=== PATIENT | male | born 1950 | race African-American/Black ===

== ENCOUNTER → 2018-04-24 15:33 | Outpatient (CLI) | payer MEDICARE, SELFPAY ==
--- NOTE | 2018-04-24 15:43 | XR_ITS ---
XR chest 2V HISTORY: COPD exacerbation, cardiac dysrhythmia ITS.REASON: COPD ORDERING PHYSICIAN: Adriana Carey MD PATIENT AGE: 68 years COMPARISON: 10/10/2017 FINDINGS: There is cardiomegaly without failure. The ruy are prominent to be related to prominent pulmonary arteries. Pulmonary arterial hypertension is considered. There is COPD. Chronic increased density is present in the right lung base medially. No definite lobar consolidation or collapse. No acute bony findings. IMPRESSION: Mild cardiomegaly without failure with suspected pulmonary hypertension and COPD
== END ==
PROVIDERS: PCP Family Medicine; Visit Provider Family Medicine
DX: I49.9 Cardiac arrhythmia, unspecified (principal); J44.1 Chronic obstructive pulmonary disease with (acute) exacerbation
CPT/HCPCS: 71046; 93005

== ENCOUNTER → 2018-05-10 13:21 | Outpatient (CLI) | payer MEDICARE, SELFPAY | PROVIDERS: PCP Family Medicine; Visit Provider Family Medicine | DX: R06.02 Shortness of breath (principal) | CPT/HCPCS: 93306 ==

== ENCOUNTER → 2018-05-24 10:39 | Outpatient (CLI) | payer MEDICARE, SELFPAY | PROVIDERS: PCP Family Medicine; Visit Provider Family Medicine | DX: J44.9 Chronic obstructive pulmonary disease, unspecified (principal) | CPT/HCPCS: 94060; 94640; 94727; 94729 ==

== ENCOUNTER 2018-06-06 14:23 | Outpatient (RCR) | payer MEDICARE, SELFPAY | END 2018-08-16 08:39 | disposition home or self-care (01) | LOC: PT 14:23 | PROVIDERS: Visit Provider Family Medicine | DX: J44.9 Chronic obstructive pulmonary disease, unspecified (principal) | CPT/HCPCS: G0424 ==

== ENCOUNTER → 2018-06-27 13:03 | Outpatient (POV) | payer MEDICARE, SELFPAY | PROVIDERS: Visit Provider Internal Medicine | DX: Z00.00 Encounter for general adult medical examination without abnormal findings (principal) ==

== ENCOUNTER → 2018-08-07 12:48 | Outpatient (CLI) | payer MEDICARE, SELFPAY ==
--- NOTE | 2018-08-07 12:52 | CT_ITS ---
CT chest wo con HISTORY: Dyspnea, COPD, increasing shortness of air ITS.REASON: DYSPNEA,PULMONARY NODULES ORDERING PHYSICIAN: Saurabh Vallejo MD PATIENT AGE: 68 years COMPARISON: None Technique: Axial images obtained following the administration of 75 mL of Optiray 350 . Sagittal, and coronal reformatted images are also generated and reviewed. All CT scans at the facility use one or more dose reduction, viz: automated exposure control, ma/kV adjustment per patient size (including targeted exams where dose is matched to indication, i.e. head), or iterative reconstruction technique. FINDINGS: There is mild prominence of the ascending aorta measuring up to centimeters. There are coronary artery calcifications with normal heart size. No mediastinal or hilar mass. Scattered small mediastinal lymph nodes are present which are stable. There are centrilobular emphysematous changes. A 7 mm right upper lobe nodule which is unchanged the margins are somewhat irregular however, this does appear stable compared to 08/09/2013. Additional 5 mm nodule in the right upper lobe also unchanged. There are scattered calcified granulomas. There is hyperinflation with attenuation of the peripheral pulmonary vessels consistent with COPD. There is some mild bronchiectasis in the lower lobes. No lobar consolidation or collapse. No effusions or infiltrates. No acute bony findings. Upper abdominal images demonstrates multiple hepatic hypodensities consistent with cysts. Largest lesion is in the right hepatic lobe posteriorly at 2 cm previously measuring 1.5 cm. IMPRESSION: 1. Overall stable CT appearance of the chest. 2. Centrilobular emphysema. 3. Stable right upper lobe nodules
== END ==
PROVIDERS: PCP Family Medicine; Visit Provider Internal Medicine
DX: R91.8 Other nonspecific abnormal finding of lung field (principal); R06.00 Dyspnea, unspecified
CPT/HCPCS: 71250

== ENCOUNTER → 2018-08-29 09:58 | Outpatient (POV) | payer MEDICARE, SELFPAY | PROVIDERS: Visit Provider Internal Medicine | DX: Z00.00 Encounter for general adult medical examination without abnormal findings (principal) ==

== ENCOUNTER → 2018-12-12 12:48 | Outpatient (POV) | payer MEDICARE, SELFPAY | PROVIDERS: Visit Provider Internal Medicine | DX: Z00.00 Encounter for general adult medical examination without abnormal findings (principal) ==

== ENCOUNTER → 2019-01-08 13:29 | Outpatient (CLI) | payer MEDICARE, SELFPAY ==
--- NOTE | 2019-01-08 13:41 | ECG_ITS ---
APPROVED REPORT Exam: Resting ECG HR:78 bpm ECG Measurements Heart Rate 78 AXES AR 140 P 78 QRSd 76 QRS 46 QT 372 T 62 QTc 424 <Conclusion> Normal sinus rhythm Possible Left atrial enlargement Left ventricular hypertrophy Abnormal ECG Electronically signed by : Ildefonso Ham, 01/08/2019 16:27:22
== END ==
PROVIDERS: PCP Family Medicine; Visit Provider Family Medicine
DX: I49.9 Cardiac arrhythmia, unspecified (principal)
CPT/HCPCS: 93005

== ENCOUNTER → 2019-01-09 14:29 | Outpatient (CLI) | payer MEDICARE, SELFPAY | PROVIDERS: PCP Family Medicine; Visit Provider Family Medicine | DX: I49.9 Cardiac arrhythmia, unspecified (principal) | CPT/HCPCS: 93225; 93226 ==

== ENCOUNTER → 2020-04-16 11:36 | Outpatient (CLI) | payer MEDICARE, SELFPAY ==
--- NOTE | 2020-04-16 11:42 | XR_ITS ---
PROCEDURE: XR CERVICAL SPINE 5V CLINICAL INDICATION: NECK PAIN ON RT SIDE COMPARISON: No exams were available for comparison FINDINGS: No fracture or dislocation. No lytic or blastic change. There is normal mineralization. Multilevel cervical spondylosis. There is kyphosis of the lower cervical spine with 3 mm anterolisthesis of C4 on C5. Multilevel degenerative disc disease is present at C3-C4 C5-C6 and C6-C7. Foraminal narrowing is present on the right at C3-C4 C4-C5 and on the left at C4-C5 and C5-C6 and C6-C7. Facet arthritic changes with hypertrophy is present from C3-C7. Other findings:None. IMPRESSION: Multilevel cervical spondylosis with degenerative disc disease and facet arthritic change with foraminal narrowing as described above. Dictated by: Harpreet Conway MD 04/16/2020 12:53 Harpreet Conway MD in [place] 04/16/2020 12:53
== END ==
PROVIDERS: PCP Family Medicine; Visit Provider Family Medicine
DX: M54.2 Cervicalgia (principal)
CPT/HCPCS: 72050

== ENCOUNTER 2020-04-29 15:00 | Outpatient (RCR) | payer MEDICARE, SELFPAY ==
--- NOTE | 2020-04-24 16:13 | HMH.PTOPEV ---
PT Outpatient Evaluation Rehab PT Outpatient Evaluation Start: 04/24/20 15:15 Freq: Status: Active Protocol: Document 04/24/20 15:15 VICENTA (Rec: 04/24/20 16:13 VICENTA [id number]) Electronically Signed By Joseluis Jerez, PT 04/24/20 15:15 Outpatient Therapy Subjective History Subjective History Pt reports acute R sided neck pain since helping lifting handicap son ~ 7-10 days ago. Pt reports R sh blade area pain, as well as R sided neck pain. Pt reports some pain relief w/TENS unti and heat, no radicular s/s down R UE. Chief Complaint Pain,Stiff Symptom Type Ache,Dull Symptoms Relieved By Rest/Positioning,Heat Symptoms Aggravated By Physical Activity,Lifting Prior Functional Limitations None Current Functional Limitations Reaching,Lifting,Housework Symptom Description Constant but Variable Level of pain today (0-10) 8 Pain scale - at its best (0-10) 6 Pain scale - at its worst (0-10) 8 Cervical Eval Palpation Cervical Muscles R Cervical Paraspinal,R CT Junction,R Upper Trapezius,R Thoracic Paraspinals Cervical/Thoracic Palpation Findings Tenderness,Trigger Point Posture Head/C-Spine Posture Sitting Position Flexed Head/C-Spine Posture Standing Position Flexed Flexibility Deficits Upper Trapezius Muscle Length (R) Moderate Tightness Levaetor Scapulae Muscle Length (R) Mild Tightness Scalene Group Muscle Length (R) Mild Tightness Passive Joint Mobility Cervical PIVM WNL: R OA L OA R AA L AA R C2/3 L C2/3 R C3/4 L C3/4 R C4/5 L C4/5 R C5/6 L C5/6 R C6/7 L C6/7 R C7/T1 L C7/T1 AROM Cervical Spine Extension Active Range of 0-30 Motion (degrees) Cervical Spine Flexion Active Range of 0-40 Motion (degrees) Cervical Spine Right Lateral Flexion 0-20 Active Range of Motion (degrees) Cervical Spine Left Lateral Flexion 0-30 Active Range of Motion (degrees) Cervical Spine Right Rotation Active 0-40 Range of Motion (degrees)
== END 2020-04-29 15:05 | disposition home or self-care (01) ==
LOC: PT 15:00
PROVIDERS: PCP Family Medicine; Visit Provider Family Medicine
DX: M54.2 Cervicalgia (principal)
CPT/HCPCS: 20560; 97010; 97014; 97035; 97110; 97163; G0283

== ENCOUNTER → 2020-08-08 12:32 | Outpatient (CLI) | payer MEDICARE, SELFPAY ==
--- NOTE | 2020-08-08 13:47 | CT_ITS ---
PROCEDURE: CT LUNG SCREENING CLINICAL INDICATION: LDCT Greater than 100 pack-year smoking history COPD COMPARISON: CT CHESTWO CT chest wo con from 08/07/2018 TECHNIQUE: The exam was performed on a GE Light Speed [address] scanner using 2.90 mGy CTDI. A low dose helical CT CHEST was performed on a multi-detector scanner. All CT scans at the facility use one or more dose reduction, viz: automated exposure control, ma/kV adjustment per patient size (including targeted exams where dose is matched to indication, i.e. head), or iterative reconstruction technique. The LDCT was performed in a facility that meets the criteria for the screening program. Data regarding this exam was submitted to A[employer] which is an approved registry. The order for this exam indicates that it came as a result of a lung cancer screening counseling shard decision-making visit that included all the elements required of such a visit including smoking cessation. The radiologist interpreting this exam meets the CMS criteria for the LDCT lung cancer screening program. The exam is reported using the Lung-RADS classification scale and reported to the ACR registry. NOTE: This study was performed for the specific purposes of lung cancer screening and is not an alternative to diagnostic chest CT. RADIATION DOSE: CTDI vol(CT dose Index-volume) = 13.42mG DLP (Dose Length Product) = 542.83 mGcm FINDINGS: COPD with centrilobular emphysematous change. Ground-glass opacity is present in the right upper lobe at 10 mm image 30. This is new. The stable 6 mm nodule right upper lobe posteriorly image 27 additional faint ground-glass opacity right middle lobe unchanged faint perivascular increased density right lower lobe image 66.. Stable right upper lobe nodule image 16 5 mm. Faint ground-glass opacity right middle lobe image 47/image 19 series 602 at 6 mm.. Faint 4 mm ground-glass opacity right middle lobe image 53. Bullous change left upper lobe medially.. There is bilateral lower lobe bronchiectasis. OTHER FINDINGS: Mild prominence of the ascending thoracic aorta at 4 cm not significantly changed. Coronary artery calcifications. Upper abdominal images show multiple hypodensities of the liver suggesting hepatic cysts. Also noted is a left renal cyst at 1.9 cm. IMPRESSION: Lung-RADS Category 4A Suspicious. There are new ground-glass opacities as described above. These could be inflammatory or infectious in nature. Cannot exclude neoplastic process. Suggest [address] follow-up with contrast. Follow-up: [address] Chest without and with contrast; COPD with centrilobular emphysema and bronchiectasis. Dictated by: Harpreet Conway MD 08/10/2020 09:43 Harpreet Conway MD in [place] 08/10/2020 09:43
== END ==
PROVIDERS: PCP Family Medicine; Visit Provider Internal Medicine Pulmonary Disease
DX: R06.00 Dyspnea, unspecified (principal); Z87.891 Personal history of nicotine dependence; Z12.2 Encounter for screening for malignant neoplasm of respiratory organs
CPT/HCPCS: 71271; 94060; 94618; 94726; 94729

== ENCOUNTER → 2020-09-15 15:46 | Outpatient (CLI) | payer MEDICARE, SELFPAY ==
[2020-09-17 15:12] LABS: Alpha-1-Antitrypsin 140 mg/dL (101-187)
== END ==
PROVIDERS: Visit Provider Internal Medicine Pulmonary Disease
DX: J44.9 Chronic obstructive pulmonary disease, unspecified (principal)
CPT/HCPCS: 36415; 82103

== ENCOUNTER 2020-09-23 12:41 | Outpatient (RCR) | payer MEDICARE, SELFPAY | END 2021-01-05 10:50 | disposition home or self-care (01) | LOC: PT 12:41 | PROVIDERS: Visit Provider Internal Medicine Pulmonary Disease | DX: J44.9 Chronic obstructive pulmonary disease, unspecified (principal) | CPT/HCPCS: G0424 ==

== ENCOUNTER → 2021-02-18 07:15 | Outpatient (CLI) | payer MEDICARE, SELFPAY ==
--- NOTE | 2021-02-18 07:16 | CT_ITS ---
PROCEDURE: CT CHEST WO CON CLINICAL INDICATION: F/U Follow-up nodule COMPARISON: CT LDCTLCAS LDCT FOR LUNG CA SCREEN from 10/12/[address] chest wo con from 08/07/[address] LUNG SCREENING from 08/08/2020 TECHNIQUE: Axial images obtained with sagittal and coronal reformats. All CT scans at the facility use one or more dose reduction, viz: automated exposure control, ma/kV adjustment per patient size (including targeted exams where dose is matched to indication, i.e. head), or iterative reconstruction technique. FINDINGS: HEART AND MEDIASTINAL STRUCTURES: No mediastinal or hilar mass. Coronary artery calcifications and/or stents noted. Minimal thickening of the pericardium anteriorly slightly less prominent LUNGS AND PLEURAL SPACES: COPD with centrilobular emphysema and scattered areas of scarring previously noted 10 mm ground-glass opacity in the anterior aspect of the right upper lobe is no longer apparent. There is a 6 mm nodule in the right upper lobe laterally unchanged 08/19. Bilateral lower lobe bronchiectasis not significantly changed. No other nodules or ground-glass opacities evident. BONY STRUCTURES: No acute bony findings. Small lucent areas present in the left 6th rib laterally unchanged UPPER ABDOMEN: Numerous hypodense hepatic lesions suggesting hepatic cysts which may be slightly more numerous in the left hepatic lobe superiorly. This could also be related to the different technique.. ADDITIONAL FINDINGS: No other significant abnormalities. IMPRESSION: No change 6 mm right upper lobe nodule. Other ground-glass opacities previously noted have resolved. COPD with centrilobular emphysema and bronchiectasis. Numerous hypodense hepatic lesions suggesting small cysts Dictated by: Harpreet Conway MD 02/19/2021 18:56 Harpreet Conway MD in [place] 02/19/2021 18:56
== END ==
PROVIDERS: PCP Family Medicine; Visit Provider Internal Medicine Pulmonary Disease
DX: R91.8 Other nonspecific abnormal finding of lung field (principal)
CPT/HCPCS: 71250

== ENCOUNTER → 2021-12-19 10:24 | Outpatient (CLI) | payer MEDICARE, SELFPAY ==
[2021-12-20 06:46] LABS: PSA, Free 1.22 ng/mL; Prostate Specific Ag 10.6 ng/mL (0.0-4.0)
== END ==
PROVIDERS: PCP Family Medicine; Visit Provider Urology
DX: R97.20 Elevated prostate specific antigen [PSA] (principal)
CPT/HCPCS: 36415; 84153; 84154

== ENCOUNTER → 2022-02-04 15:16 | Outpatient (CLI) | payer MEDICARE, SELFPAY ==
--- NOTE | 2022-02-04 15:16 | CT_ITS ---
FINAL REPORT CLINICAL HISTORY: 71-year-old male, former smoker, quit 12 yrs ago, 40 pack-year history COMPARISON: 02/18/2021, 08/07/2018 FINDINGS: Axial images were obtained from the lung apex to the mid abdomen by computed tomography. Low-dose protocol was utilized. CTDl vol(mGy): 2.90 DLP (mGy-cm): 117.50 FINDINGS: There is no axillary adenopathy. There is no hilar or mediastinal adenopathy. The heart size is normal. There is no pericardial or pleural effusion. Limited images of the upper abdomen numerous low-attenuation masses in the liver which appears stable and are favored to represent cysts. There are bilateral low-attenuation renal masses which cannot be accurately characterized but may represent cysts. Lung window images demonstrate a 6 mm right upper lobe nodule, which is stable, on image 32. There are several calcified granulomas. There is a stable, less than 5 mm nodule in the inferior right upper lobe. IMPRESSION: Stable pulmonary nodules. Lung RADS category 1. Recommend 12 month follow-up low-dose chest CT. Reviewed, Interpreted and Dictated by Abhishek Gallegos III, MD Transcribed by Alka Bernstein Authenticated and [facility][1]
== END ==
PROVIDERS: PCP Family Medicine; Visit Provider Internal Medicine Pulmonary Disease
DX: Z87.891 Personal history of nicotine dependence (principal); Z12.2 Encounter for screening for malignant neoplasm of respiratory organs
CPT/HCPCS: 71271

== ENCOUNTER → 2022-08-18 07:47 | Outpatient (CLI) | payer MEDICARE, SELFPAY ==
--- NOTE | 2022-08-18 | CA_ITS ---
APPROVED REPORT Exam: Pharmacologic Technologist: Ade Stephenson Ht: 5 ft 8 in Wt: 153 lbs BSA: 1.82 m2 HR: 70 bpm BP: 154/71 mmHg Indications: Dyspnea, Chest pain, preop Medical History Medications: Lisinopril,,,,, Vitamin D3,,,,, TAMSULOSIN,,,,, Albuterol,,,,, BisOPROLOL,,,,, Maxide,,,,, Vitamin B Complex,,,,, SilDENAFIL,,,,, Potassium,,,,, NifEDIPINE,,,,, Trelegy-Ellipta,,,,, Stress Test Details Test: LEXISCAN HR Resting HR: 70 bpm Max Heart Rate (APMHR): 146.369157 bpm Max HR Achieved: 91 bpm Target HR (85% APMHR): 124.357967 bpm % of APMHR: 62.33 Recovery HR: 66 bpm BP Resting BP: 154/71 mmHg Max BP: 162/72 mmHg Recovery BP: 148.0/62.0 mmHg ECG Resting ECG: Normal sinus rhythm, PVC, LVH, ST abnormalities inferiorly and laterally Clinical Exercise duration: 04:00 min Highest Stage Achieved: Stress ECG Conclusion Symptoms: Stomach discomfort, head discomfort, mild shortness of air. No chest pain. Arrhythmias/Ectopy: Occasional PVC, rare Ventricular couplet ST-T Changes: Mild exaggeration of baseline ST abnormalities. Conclusion: Non-diagnostic Lexiscan stress. Myoview images reported separately. Test Summary REST . . . . . . . Sitting REST 05:57 . . 70 . 154/ 71 . . Stage 1 . . . . . . . Myoview Injected Stage 1 01:00 . . 76 . . . . Stage 2 01:00 . . 91 . . . . Stage 3 01:00 . . 79 . 146/ 78 . . Stage 4 01:00 . . 75 . . . Stop exercise at 04:00 RECOVERY 01:00 . . 73 . 154/ 78 . . RECOVERY 02:00 . . 67 . 154/ 78 . . RECOVERY 03:00 . . 69 . 162/ 72 . . RECOVERY 03:55 . . 68 . 148/ 69 . . Electronically signed by : Braxton Kaufman MD 08/18/2022 18:23:54
--- NOTE | 2022-08-18 07:47 | NM_ITS ---
APPROVED REPORT Exam: Nuclear Stress Test Indication: SHORT OF BREATH..PRE-OP Patient Location: Outpatient Stress Tech: Ade Stephenson NM Tech:Laly WatsonMELISSA RT(R)(N) Ht: 5 ft 8 in Wt: 153 lbs HR: 70 bpm BP: 154/71 mmHg BSA: 1.82 m2 TID: 0.99 BMI: 23.2 History: SHORT OF BREATH..PRE-OP Procedure: Patient received 0.4 mg of intravenous Lexiscan, resting heart rate 70 bpm, resting blood pressure 154/71 mmHg, with Lexiscan maximum heart rate achieved was 91 bpm which is Less than 85 % of the maximum predicted heart rate and blood pressure was 162/72 mmHg. With Lexiscan, patient denied any complaint of chest pain. Electrocardiogram Sting electrocardiogram shows sinus bradycardia, with Lexiscan there is less than 1.[address] segment depression noted from the baseline EKG. The EKG portion of the Lexiscan is nondiagnostic. Cardiac Stress and Resting SPECT Images: Cardiac Stress and Resting SPECT images were obtained using technetium 99m Myoview 31.1 mCi stress and 10.22 mCi at rest. Gated SPECT analysis of segmental wall motion and calculation of the ejection fraction also done. Prone images were also obtained. Cardiac stress and rest respectively show uniform myocardial activity without segmental perfusion abnormality, computer derived ejection fraction 48% with no regional wall motion abnormality, right ventricle is normal size and contractility. Conclusion: 1. The EKG portion of the Lexiscan is nondiagnostic. 2. No scintigraphic evidence of reversible ischemia seen, computer derived ejection fraction is 48% with no regional wall motion abnormality, right ventricle is normal size and contractility. 3. Normal Lexiscan Myoview study. Electronically signed by : Braxton Kaufman MD 08/18/2022 18:32:00
--- NOTE | 2022-08-18 08:48 | CA_ITS ---
APPROVED REPORT EXAM: Comprehensive 2D, Doppler, and color-flow Echocardiogram Roto Mixer Operator: Brittney Osuna, MAGALI, RVS Ht: 5 ft 8 in Wt: 152lbs BSA: 1.82 BP: 170/62 mmHg Indications: SOB, COPD, CP,HTN, Pre-op hernia repair 2D Dimensions Aortic Root 3.34 cm LA Volume 72.50 mL Left Atrium 3.38 cm LA Volume Index 39.00 mL/m2 (M/F) 16-34 LVOT 1.88 cm (M/F) 1.5-2.5 M-Mode Dimensions LA Diam 3.54 cm (1.9-4.0) Ao Diam 3.37 cm (2.0-3.7) EPSs 0.34 cm TAPSE 3.01 (<1.7) LV Diastology E Decel Time 267.00 (160-240 msec) E/A Ratio 0.93 MED E' 9.50 (< 7 cm/sec) MED A' 11.80 cm/s E'/MED E' Ratio 6.36 (>14) LAT E' 11.90 (<10 cm/sec) LAT A' 9.20 cm/s E/LAT E' Ratio 5.08 (>14) Aortic Valve LVOT Max 105.00 (70-110 cm/s) LVOT VTI 26.11 cm AoV Peak Tejinder. 138.00 (50-130 cm/s) AI PHT 758.00 ms AO Peak GR. 7.70 mmHg AO Mean GR. 4.20 (<5 mmHg) AO VTI 33.58 (18-25 cm) MANNIE (VTI) 2.16 (2.5-4.5 cm2) Mitral Valve MV A Velocity 65.00 (40-130 cm/s) E/A Ratio 0.93 MV Decel. Time 267.00 (160-240 ms) Pulmonary Valve PV Peak Velocity 95.00 (50-150 cm/s) Left Ventricle Left atrium is mildly enlarged, left ventricle is normal size mild concentric left ventricular hypertrophy, estimated ejection fraction 55% with no regional wall motion abnormality, diastolic parameters are inconclusive. Right Ventricle Right atrium and right ventricle are mildly enlarged with normal contractility. Aortic Valve Aortic valve is thickened and calcified without aortic stenosis, there is mild aortic insufficiency. Mitral Valve Mitral valve is grossly normal, there is trace mitral regurgitation. Tricuspid Valve Tricuspid valve grossly normal, there is trace tricuspid regurgitation, tricuspid regurgitation jet velocity is inadequate for calculation of the right ventricular systolic pressure. Pulmonic Valve Pulmonic valve is poorly visualized. Great Vessels Aortic root is normal size. Inferior vena cava is poorly visualized. Pericardium No significant pericardial effusion noted. Conclusion 1. Mild biatrial normal, normal left ventricular size, estimated ejection fraction 55% with no regional wall motion abnormality, diastolic parameters are inconclusive. 2. Mildly enlarged right ventricle with normal contractility. 3. Mild aortic, trace mitral and tricuspid regurgitation. 4. No significant pericardial effusion noted. 5. Inferior vena cava is poorly visualized. Electronically signed by : Braxton Kaufman MD 08/18/2022 21:07:16
== END ==
PROVIDERS: PCP Family Medicine; Visit Provider Nurse Practitioner Family
DX: R06.02 Shortness of breath (principal); Z01.810 Encounter for preprocedural cardiovascular examination
CPT/HCPCS: 78452; 93017; 93306; A9502; J2785

== ENCOUNTER → 2022-09-13 12:57 | Outpatient (CLI) | payer MEDICARE, SELFPAY ==
--- NOTE | 2022-09-13 13:02 | XR_ITS ---
FINAL REPORT CLINICAL HISTORY: pre op hernia surgery..htn COMPARISON: 02/04/2022 FINDINGS: 2 views of the chest were obtained . The heart is normal in size. The mediastinum is within normal limits. The lungs are hyperexpanded consistent with COPD but otherwise clear. There is no pneumothorax. Osseous structures are unremarkable. IMPRESSION: COPD without acute cardiopulmonary process. Reviewed, Interpreted and Dictated by Abhishek Gallegos III, MD Transcribed by Latoya Lamar Authenticated and [facility]
[2022-09-13 13:22] LABS: Microscopic, Urine URINE MICROSCOPIC (MICROSCOPIC)
[2022-09-13 14:06] LABS: Appearance,Urine CLEAR (Clear); Bilirubin,Urine Negative (Negative); Blood, Urine Negative (Negative); Color,Urine YELLOW (Yellow); Glucose,Urine (UA) Negative (Negative); Ketones,Urine Negative (Negative); Leukocyte Esterase,Urine Negative (Negative); Nitrate,Urine Negative (Negative); Protein,Urine Negative (Negative); Specific Gravity, Urine 1.015 (1.005-1.030); Urobilinogen,Urine 0.2 EU/dl (0.2)
[2022-09-13 14:15] LABS: Basophils % 0.3 % (0.1-2.0); Eosinophils # 0.1 K/mm3 (0.0-0.4); Eosinophils % 2.3 % (0.1-12.0); Hematocrit 40.3 % (42.0-52.0); Hemoglobin 12.5 g/dL (14.1-18.0); Lymphocytes # 1.8 K/mm3 (0.7-4.5); Lymphocytes % 44.6 % (10-50); Mean Corpuscular Hemoglobin 26.5 pg (27.0-31.2); Mean Corpuscular Volume 85.5 fl (80-94); Mean Platelet Volume 7.7 fl (7.4-10.4); Monocytes # 0.3 K/mm3 (0.1-1.0); Monocytes % 8.2 % (1.7-9.3); Neutrophils # 1.8 K/mm3 (1.8-7.8); Neutrophils % 44.6 % (37.0-80.0); Platelet Count 220 K/mm3 (142-424); Red Blood Count 4.71 M/mm3 (4.60-6.20); Red Cell Distribution Width 15.4 % (11.5-17.5)
[2022-09-13 14:40] LABS: Anion Gap 10.4 mEq/L (5-15); Blood Urea Nitrogen 20 mg/dl (9-20); Calcium 8.9 mg/dl (8.4-10.2); Carbon Dioxide 31 mmol/L (22.0-30.0); Chloride 101 mmol/L (98-107); Estimated Glomerular Filt Rate 54 ml/min (>60); GFR (African American) 65 ML/MIN (>60); Glucose 107 mg/dl (74-100); Potassium 4.4 mmoL/L (3.5-5.1); Sodium 138 mmol/L (136-145)
[2022-09-13 15:14] LABS: Bacteria,Urine Trace /lpf; Sperm,Urine OCC /lpf; WBC,Urine Occasional #/hpf (0-3)
== END ==
PROVIDERS: PCP Family Medicine; Visit Provider Surgery
DX: K40.90 Unilateral inguinal hernia, without obstruction or gangrene, not specified as recurrent (principal); J44.1 Chronic obstructive pulmonary disease with (acute) exacerbation
CPT/HCPCS: 36415; 71046; 80048; 81001; 85025

== ENCOUNTER 2022-09-20 09:33 | Day surgery (SDC) | payer MEDICARE, SELFPAY ==
[2022-09-16 11:11] VITALS: BMI 23.2
[2022-09-20] VITALS (9 sets, daily range): BP systolic 132–149; BP diastolic 68–87; PULSE 59–72; RESP 12–20; TEMP 36.6–43; O2SAT 95–99
--- NOTE | 2022-09-20 15:55 | P.OP_ITS ---
Date of procedure: 09/20/22 Pre-op Diagnosis:: Right inguinal hernia Post-op Diagnosis:: Same Procedure performed:: Open repair of right inguinal hernia with placement of medium Bard prefix mesh with plug Surgeon:: Abhishek Morales MD DIESEL ENGINE TESTER:: Toni Loving Anesthesia: LMA Estimated blood loss (mL): 20 Clinical Note:: Patient is a 72-year-old male who presents for right inguinal hernia repair. He was referred by Dr. Carey for right inguinal hernia and I originally saw him in the office on 07/13/2022.? He has a history of oxygen dependent COPD/emphysema.? He has had some discomfort and swelling bulge in the right groin area.? This is worse when he is standing on his feet for prolonged period of time. He underwent cardiac restratification and was deemed an appropriate and acceptable risk for surgery. On examination with the patient standing he had a moderate to moderately large right inguinal hernia which was able to be reduced. Operative findings:: He had a moderate indirect hernia with thin hernia sac. Operative note:: Consent was obtained patient was taken to the operating room. He was given preoperative intravenous antibiotics. In the operating room he was placed in a supine position. General anesthesia was induced via LMA. Miller catheter was placed by nursing staff for bladder decompression. Lower abdomen and perineum were prepped and draped in the standard surgical fashion. He was positioned in slight Trendelenburg position. Oblique incision was made in the right groin area superior to landmarks identifying the inguinal ligament. Dissection was carried down through subcutaneous tissues and Lauren's fascia using electrocautery. External oblique muscle was cleaned free. External oblique was opened along the length of its fibers exposing the underlying cord structures. The ilioinguinal nerve was identified and preserved. Cord structures were dissected free from the floor and encircled with a Nick drain ultimately. Dissection was carried out inspecting the cord. There was a hernia sac present as an indirect hernia. This was dissected free. Hernia sac was opened. It was ligated with a 2-0 Vicryl pursestring suture and extraneous peritoneum of the hernia sac was excised and sent off as a specimen. There was some minimal cord lipoma tissue which was excised as well and ligated with a Vicryl tie and sent with the specimen. A medium sized Bard prefix mesh plug was inserted into the region of the internal ring at the defect. It was secured to the shelving edge of the inguinal ligament and to transversalis muscle with several interrupted 2- 0 PDS sutures. Onlay mesh was then secured into the inguinal floor with a running 2-0 PDS along the inferior border to the shelving edge of the inguinal ligament. It was secured superomedially to the transversalis fascia with interrupted 2-0 PDS horizontal mattress sutures. Cord structures and ilioinguinal nerve were returned to the normal anatomic position. The 2 tails of the mesh were secured one of the couple of 2-0 PDS sutures to reconstruct the internal ring. Wound was irrigated. Local anesthetic was infiltrated deeply in the wound as well as for an inguinal nerve block. There was good hemostasis. External oblique muscle was closed over the cord structures with a running 2-0 Vicryl. Lauren's fascia was closed with running 2-0 Vicryl. Skin was closed with 4-0 Monocryl in a running subcuticular fashion. Dermabond and clean dry sterile dressing was applied. Condition: stable Disposition: PACU Complications:: None immediately apparent
--- NOTE | 2022-09-20 15:58 | P.PN_ITS ---
[facility] Disclaimer: The information contained in this section may have been updated after the patient was seen, as this information can be updated by other users. Medical History Benign prostatic hyperplasia COPD (chronic obstructive pulmonary disease) Dyspnea on exertion Encounter for pre-operative cardiovascular clearance Hypertension Multiple pulmonary nodules Pulmonary emphysema PVCs (premature ventricular contractions) Screening for lung cancer Sinus tachycardia SOB (shortness of breath) Stopped smoking with greater than 30 pack year history Surgical History History of cardiac cath History of colonoscopy Family History Other Diabetes Heart attack Hypertension Social History (Updated 09/20/22 @ 10:22 by Laurence Purcell RN) Smoking Status: Former smoker alcohol intake: former substance use type: denies use current occupational status: retired Travel in the last 8 weeks: None household members: spouse and children housing: house [facility] Anesthesia Checklist Patient Identification Patient Identification: Verbal (Name & ) Structural Data Admitted From: Home Planned Operative Procedure/s: r inguinal hernia repair Consent for Planned Operative Procedure(s) Verified: Yes NPO Status Verified Time NPO: 00:00 Additional verifications Anesthesia Reactions: No Hx Blood Transfusions: No Blood Transfusion Reaction: No Airway Assessment C-Spine Mobility Assessed: Yes TMJ Mobility Assessed: Yes Dentition: Partials Neurological Assessment Level of Consciousness: Awake, Alert and Appropriate Anesthesia Plan Anesthesia Risk discussed: Yes Anesthesia Plan: Verified ASA Class: II Anesthesia Type: General
--- NOTE | 2022-09-20 15:59 | P.PNANES_ITS ---
[facility] Anesthesia Record Part I Anesthesia Record I Intake, IV Amount: 1,500 Estimated blood loss (mL): 0 Urine output (mL): 250 Blood Pressure: 148/78 SaO2: 96 Pulse Rate: 68 Respiratory Rate: 12 Temperature: 97.8 F Patient is:: Awake and Stable Stable to PACU at:: 16:00
--- NOTE | 2022-09-20 17:09 | SUR.PHASEII ---
multiple attempts were made to make a follow up appointment in the [facility] office to no success. Pt's was told to call MD's office first thing in the morning for follow up, verbalized understanding.
[2022-09-20 17:34] LABS: Microscopic,Cath URINE MICROSCOPIC (MICROSCOPIC)
[2022-09-20 17:42] LABS: Appearance,Urine/Cath CLEAR (Clear); Bilirubin,Cath Negative (Negative); Blood, Urine/Cath 3+ (Negative); Color,Urine/Cath YELLOW (Yellow); Glucose,Urine/Cath (UA) Negative (Negative); Ketones,Urine/Cath TRACE (Negative); Leukocyte Esterase,Cath Negative (Negative); Nitrate,Cath Negative (Negative); PH,Urine/Cath 6.5 (5.0-8.5); Protein,Urine/Cath Negative (Negative); Specific Gravity, Urine/Cath 1.015 (1.005-1.030); Urobilinogen,Cath 0.2 EU/dl (0.2)
[2022-09-20 18:46] LABS: Bacteria,Urine/Cath TRACE /lpf; RBC,Urine/Cath TNTC # /hpf (0-3)
[2022-09-22 09:13] VITALS: BP 136/72; PULSE 64; TEMP 36.7
--- NOTE | 2022-09-22 09:13 | EXP.ANES.II ---
[facility] Anesthesia Record Part II Anesthesia Record Part II Discharge Time: 16:30 Destination: Surgical Day Care (OP Surgery) PACU nurse assessment reviewed?: Yes Patient Condition:: Good Anesthesia Complications:: None Swallowing reflex intact?: Yes Cyanosis?: No Blood Pressure: 136/72 Pulse Rate: 64 Temperature: 98.1 F Mental Status: Alert & Oriented Pain level:: 0 Nausea and/or vomitting:: None Intake, IV Amount: 0
== END 2022-09-20 17:00 | disposition home or self-care (01) ==
PROVIDERS: PCP Family Medicine; Visit Provider Surgery
DX: K40.90 Unilateral inguinal hernia, without obstruction or gangrene, not specified as recurrent (principal); Z79.899 Other long term (current) drug therapy
CPT/HCPCS: 49505; 81001; 88302; 96374

== ENCOUNTER → 2023-02-07 09:47 | Outpatient (CLI) | payer MEDICARE, SELFPAY ==
--- NOTE | 2023-02-07 10:09 | PC.NURSE ---
Pre and Post Spirometry completed without incident. Pt demonstrated a very strong effort during loop maneuvers, however, end of criteria was not met ever though patient was able to exhale 15 seconds and had no more air to exhale. Albuterol 0.083% given via HHN, per written protocol, Pt tolerated tx well.
--- NOTE | 2023-02-07 10:37 | CT_ITS ---
FINAL REPORT CLINICAL HISTORY: lung cancer screening former smoker, quit 11 years ago, smoked 2 ppd x 40 years copd COMPARISON: 02/04/2022 FINDINGS: CT CHEST LOW DOSE SCREENING HISTORY: Screening exam for lung cancer. Former smoker, 80 pack year smoking history DOSE: CTDIvol: 2.9 mGy, DLP: 116.46 mGy*cm COMPARISON: 02/04/2022. TECHNIQUE: Axial CT without IV contrast administration using low dose protocol FINDINGS: No acute lung disease is present . No pulmonary lesions are seen suspicious for neoplasm. The soft tissue nodule in the peripheral aspect of the right upper lobe seen on the prior low-dose chest CT remains present and is unchanged in size and appearance. This is best seen on images #33 and 34 of series #4. The 5 mm nodule noted in the inferior right upper lobe on the prior chest CT is not seen on today's exam. Note is made of moderate bronchiectasis in the lower lobes bilaterally, unchanged. No pleural or pericardial effusion is seen . No adenopathy or mass lesion is present . IMPRESSION: 5 mm nodule inferior right upper lobe is not seen on today's exam. The 4 mm nodule in the peripheral right upper lobe seen on the prior exam is stable. No new masses or nodules are identified. LUNG RADS CATEGORY 1 RECOMMENDATION: 12 month LDCT follow up Reviewed, Interpreted and Dictated by Magdy Gonzalez MD Transcribed by Kayla Torres Authenticated and [facility]
== END ==
PROVIDERS: PCP Family Medicine; Visit Provider Internal Medicine Pulmonary Disease
DX: F17.210 Nicotine dependence, cigarettes, uncomplicated (principal); J44.9 Chronic obstructive pulmonary disease, unspecified
CPT/HCPCS: 71271; 94060

== ENCOUNTER 2024-01-09 19:13 | Emergency (ER) | payer MEDICARE, SELFPAY ==
[2024-01-09 19:15] VITALS: BP 138/78; PULSE 91; RESP 22; TEMP 36.8; O2SAT 97; BMI 23.2
--- NOTE | 2024-01-09 19:25 | ED_ITS ---
<Statement entered by Nelia Shaffer DO - 01/09/24 23:02> I was consulted by the HUYEN, and we discussed the complexity of the problems being addressed. I approved the treatment and management plan for this patient's care in the emergency department, thus performing a substantive portion of the medical decision making. Nelia Shaffer DO Discharge Plan Disposition Patient Disposition: Home, Self-Care Condition: Good Prescriptions Prescriptions: New prednisone 50 mg tablet 50 mg PO DAILY 5 Days Qty: 5 0RF No Action potassium chloride 10 mEq capsule, extended release 10 meq PO DAILY nifedipine 90 mg tablet extended release 24hr 90 mg PO DAILY sildenafil [Viagra] 50 mg tablet 50 mg PO DAILY PRN (Reason: .) Rx Instructions: administer 30 minutes to 4 hours before activity albuterol sulfate [Ventolin HFA] 90 mcg/actuation HFA aerosol inhaler 2 puff INHALATION Q6H PRN (Reason: copd) lisinopril 2.5 mg tablet 2.5 mg PO DAILY triamterene-hydrochlorothiazid [Maxzide-25mg] 37.5-25 mg tablet 1 tab PO DAILY tamsulosin 0.4 mg capsule 0.4 mg PO DAILY vitamin B complex [B Complex-Vitamin B12] Tablet 1 tab PO DAILY cholecalciferol (vitamin D3) 25 mcg (1,000 unit) capsule 25 mcg PO DAILY bisoprolol fumarate 10 mg tablet 5 mg PO QDAY Qty: 30 5RF Stiolto Respimat 2.5-2.5 mcg/actuation mist 2 puff inhalation DAILY 90 Days Qty: 4 2RF hydrocodone-acetaminophen 5-325 mg Tablet 1 - 2 tab PO Q6H PRN (Reason: Pain) Qty: 21 0RF Referrals Follow up/Referrals: Adriana Carey MD [Primary Care Provider] - See instructions Activity Restrictions/Add. Instructions Additional Instructions/Restrictions: Follow-up with your PCP in 48 hours. Return to ER for any worsening signs or symptoms as needed. Clinical Impressions Clinical Impression: COPD exacerbation Instructions Patient Instructions: DI for Chronic Obstructive Pulmonary Disease Print Language Print Language: [place] Discharge ED Provider: Nelia Shaffer General Adult HPI <MICHELLE Kumar - Last Filed: 01/09/24 21:11> General Chief complaint: Shortness of Breath/Dyspnea Stated complaint: cough chills soa Time Seen by Provider: 01/09/24 19:20 History of Present Illness HPI narrative: Patient presents for evaluation of shortness of breath and fever. Patient has a past medical history of COPD with intermittent O2 as needed, history of CHF, hypertension. Patient reports that he has been progressively short of breath all day and has been wearing his supplemental O2 however he feels no better. He also reports that he is subjectively having a fever but has not checked it. He denies hemoptysis hematochezia melena nausea vomiting diarrhea. Related Data Home Medications ?Medication ?Instructions ?Recorded ?Confirmed potassium chloride 10 mEq 10 meq PO DAILY Supplement 10/11/17 10/25/23 capsule,extended release albuterol sulfate 90 mcg/actuation 2 puff inhalation Q6H PRN copd 09/17/21 10/25/23 aerosol inhaler (Ventolin HFA) lisinopril 2.5 mg tablet 2.5 mg PO DAILY bp 09/17/21 10/25/23 sildenafil 50 mg tablet (Viagra) 50 mg PO DAILY PRN . 09/17/21 10/25/23 triamterene 37.5 1 tab PO DAILY . 09/17/21 10/25/23 mg-hydrochlorothiazide 25 mg tablet (Maxzide-25mg) cholecalciferol (vitamin D3) 25 25 mcg PO DAILY Supplement 07/28/22 10/25/23 mcg (1,000 unit) capsule nifedipine 90 mg tablet,extended 90 mg PO DAILY . 07/28/22 10/25/23 release 24 hr tamsulosin 0.4 mg capsule 0.4 mg PO DAILY . 07/28/22 10/25/23 vitamin B complex (B 1 tab PO DAILY Supplement 07/28/22 10/25/23 Complex-Vitamin B12 tablet) Previous Rx's ?Medication ?Instructions ?Recorded hydrocodone 5 mg-acetaminophen 325 1 - 2 tab PO Q6H PRN Pain #21 tabs 09/20/22 mg tablet bisoprolol fumarate 10 mg tablet 5 mg (1/2 x 10 mg) PO QDAY bp #30 11/22/22 tabs tiotropium 2.5 mcg-olodaterol 2.5 2 puff inhalation DAILY 90 days #4 12/13/23 mcg/actuation mist for inhalation grams (Stiolto Respimat) prednisone 50 mg tablet 50 mg PO DAILY 5 days #5 tabs 01/09/24 Allergies Allergy/AdvReac Type Severity Reaction Status Date / Time No Known Allergies Allergy Verified 10/25/23 15:55 PFS <MICHELLE Kumar - Last Filed: 01/09/24 21:11> [facility] Disclaimer: The information contained in this section may have been updated after the patient was seen, as this information can be updated by other users. Medical History Multiple lung nodules on CT Benign prostatic hyperplasia PVCs (premature ventricular contractions) Hypertension Encounter for pre-operative cardiovascular clearance Screening for lung cancer Multiple pulmonary nodules COPD (chronic obstructive pulmonary disease) Pulmonary emphysema Stopped smoking with greater than 30 pack year history Dyspnea on exertion SOB (shortness of breath) Sinus tachycardia Surgical History History of inguinal hernia repair History of colonoscopy History of cardiac cath Family History Other Diabetes Heart attack Hypertension Social History Smoking Status: Former smoker tobacco type: cigarettes alcohol intake: former substance use type: denies use current occupational status: retired Travel in the last 8 weeks: None household members: spouse and children housing: house <MICHELLE Kumar - Last Filed: 01/09/24 21:11> ROS Obtained: Yes Systems reviewed as appropriate & no additional complaints except as documented Physical Exam <MICHELLE Kumar - Last Filed: 01/09/24 21:11> General General appearance: alert and in no apparent distress Respiratory Respiratory exam: Present normal lung sounds bilaterally Cardiovascular Cardiovascular exam: Present regular rate, normal rhythm and normal heart sounds Neurological Exam Neurological exam: Present alert and oriented X3 Medical Decision Making <MICHELLE Kumar - Last Filed: 01/09/24 21:11> Medical Records Medical records reviewed: Yes I reviewed the patient's medical records. Raji Inquiry Pt receiving controlled substance: No Vital Signs: 01/09/24 19:15 01/09/24 20:00 01/09/24 20:18 Temperature 98.3 F Temperature Source Oral Pulse Rate 74 Pulse Rate [Right] 91 H Respiratory Rate 22 20 Blood Pressure 100/52 L Blood Pressure [Right Arm] 138/78 Blood Pressure Mean [Right Arm] 98 Blood Pressure Source [Right Arm] Automatic Cuff Blood Pressure Position [Right Arm] Sitting 02 Sat by Pulse Oximetry 97 100 98 Oxygen Delivery Method Nasal Cannula Nasal Cannula Oxygen Flow Rate (LPM) 2 2 01/09/24 20:18 01/09/24 20:25 Temperature Temperature Source Pulse Rate 75 76 Pulse Rate [Right] Respiratory Rate Blood Pressure Blood Pressure [Right Arm] Blood Pressure Mean [Right Arm] Blood Pressure Source [Right Arm] Blood Pressure Position [Right Arm] 02 Sat by Pulse Oximetry Oxygen Delivery Method Oxygen Flow Rate (LPM) Lab Data Lab results reviewed: Yes I reviewed the patient's lab results. Lab Results 01/09/24 19:27: VBG pH 7.47 H, VBG pCO2 39.5, VBG pO2 136.5 H, VBG HCO3 27.8, V BG Total CO2 29.0 H, VBG O2 Saturation 99.0 H, VBG Base Excess 4.0 H, VBG Lactic Acid 2.0 01/09/24 19:29: WBC 4.2 L, RBC 4.38 L, Hgb 11.7 L, Hct 38.6 L, MCV 88.1, MCH 26.7 L, MCHC 30.3 L, RDW 14.5, Plt Count 223, MPV 7.9, Neut % (Auto) 63.6, Lymph % (Auto) 23.5, [place] % (Auto) 10.2 H, Eos % (Auto) 2.1, Baso % (Auto) 0.7, Neut # (Auto) 2.7, Lymph # (Auto) 1.0, [place] # (Auto) 0.4, Eos # (Auto) 0.1, Baso # (Auto) 0.0, PT 11.2, INR 1.00, D-Dimer 0.29, Sodium 134 L, Potassium 3.9, Chloride 101, Carbon Dioxide 30, Anion Gap 6.9, BUN 22 H, Creatinine 1.40 H, Estimated Creat Clear 45, Estimated GFR 49 L, Est GFR ( Amer) 60, Glucose 131 H, Calcium 8.3 L, Total Bilirubin 0.6, AST 20, ALT 15, Alkaline Phosphatase 69, Troponin I < 0.01, NT-Pro-B Natriuret Pep 1410 H, Total Protein 6.8, Albumin 3.7, Globulin 3.1, Albumin/Globulin Ratio 1.2, SARS-CoV-2 (PCR) Not detected, Influenza A Untype (PCR) Not detected, Influenza Type B (PCR) Not detected 01/09/24 19:29 01/09/24 19:29 Orders (Tests/Meds): ED MEDICATIONS Discontinued Medications Generic Name Dose Route Start Last Admin Trade Name Freq PRN Reason Stop Dose Admin Acetaminophen 1,000 mg 01/09/24 19:26 01/09/24 19:46 Acetaminophen 1,000mg/100ml Vial IV 01/09/24 19:27 1,000 mg ONCE ONE Administration Albuterol/Ipratropium 3 ml 01/09/24 19:26 01/09/24 20:18 Ipratropium/Albuterol 3 Ml Neb IH 01/09/24 19:27 3 ml ONCE ONE Administration Dexamethasone Sodium Phosphate 10 mg 01/09/24 19:26 01/09/24 19:46 Dexamethasone 4mg/Ml 5ml Mdv IV 01/09/24 19:27 10 mg ONCE ONE Administration Ketorolac Tromethamine 15 mg 01/09/24 19:26 01/09/24 19:46 Ketorolac 30mg/Ml Vial IV 01/09/24 19:27 15 mg ONCE ONE Administration ORDERS Category Date Time Status Chest XR 2 view (NOT portable) [XR chest 2V] Stat Exams 01/09/24 19:26 Completed BNP [NT Pro Brain Natriuretic Pep.] Stat Lab 01/09/24 19:29 Completed CBC w/Auto Diff [Complete Blood Count Auto Diff] Stat Lab 01/09/24 19:29 Completed CMP [Comprehensive Metabolic Panel] Stat Lab 01/09/24 19:29 Completed D-Dimer Stat Lab 01/09/24 19:29 Completed INR [Prothrombin Time INR] Stat Lab 01/09/24 19:29 Completed Rapid PCR Covid and Flu A/B Stat Lab 01/09/24 19:29 Completed Trop I [Troponin I] Stat Lab 01/09/24 19:29 Completed Troponin I Q3H Lab 01/09/24 22:30 Ordered Troponin I Q3H Lab 01/10/24 01:30 Ordered VBG [Venous Blood Gas] Stat RT 01/09/24 19:27 Completed HEART Score History (anamnesis): Slightly suspicious ECG: Non-specific disturbance Age: >65 years Risk factors: 3 or more risk factors Medical Decision Narrative: In summary patient is a 73-year-old male who presents to the emergency department for evaluation of dyspnea. Patient is hemodynamically stable upon arrival, afebrile. Physical exam is remarkable for bilateral, left greater than right basilar rhonchi but no increased work of breathing, normal sinus rhythm on the bedside monitor satting at 99% on 2 L by nasal cannula with no other focal findings. Differential diagnosis includes infectious pneumonia versus CHF exacerbation versus ACS versus COPD exacerbation etc. Initial workup will be conducted with hematologic labs twelve-lead EKG plain film chest x-ray VBG. Initial interventions include acetaminophen Toradol Tylenol Decadron DuoNeb. Initial workup reviewed by me is reassuring is his hematologic labs are nonactionable and my personal septations plain film chest x-ray shows no acute processes.. Upon repeat evaluation patient reports significant improvement after administration of steroids and DuoNeb and is now satting at 95% on room air. Given this patient is appropriate for discharge with close follow-up with his PCP and strict return precautions. <Nelia Shaffer, DO - Last Filed: 01/09/24 20:09> Vital Signs: 01/09/24 19:15 01/09/24 20:00 01/09/24 20:18 Temperature 98.3 F Temperature Source Oral Pulse Rate 74 Pulse Rate [Right] 91 H Respiratory Rate 22 20 Blood Pressure 100/52 L Blood Pressure [Right Arm] 138/78 Blood Pressure Mean [Right Arm] 98 Blood Pressure Source [Right Arm] Automatic Cuff Blood Pressure Position [Right Arm] Sitting 02 Sat by Pulse Oximetry 97 100 98 Oxygen Delivery Method Nasal Cannula Nasal Cannula Oxygen Flow Rate (LPM) 2 2 01/09/24 20:18 01/09/24 20:25 Temperature Temperature Source Pulse Rate 75 76 Pulse Rate [Right] Respiratory Rate Blood Pressure Blood Pressure [Right Arm] Blood Pressure Mean [Right Arm] Blood Pressure Source [Right Arm] Blood Pressure Position [Right Arm] 02 Sat by Pulse Oximetry Oxygen Delivery Method Oxygen Flow Rate (LPM) Lab Data Lab Results 01/09/24 19:27: VBG pH 7.47 H, VBG pCO2 39.5, VBG pO2 136.5 H, VBG HCO3 27.8, V BG Total CO2 29.0 H, VBG O2 Saturation 99.0 H, VBG Base Excess 4.0 H, VBG Lactic Acid 2.0 01/09/24 19:29: WBC 4.2 L, RBC 4.38 L, Hgb 11.7 L, Hct 38.6 L, MCV 88.1, MCH 26.7 L, MCHC 30.3 L, RDW 14.5, Plt Count 223, MPV 7.9, Neut % (Auto) 63.6, Lymph % (Auto) 23.5, [place] % (Auto) 10.2 H, Eos % (Auto) 2.1, Baso % (Auto) 0.7, Neut # (Auto) 2.7, Lymph # (Auto) 1.0, [place] # (Auto) 0.4, Eos # (Auto) 0.1, Baso # (Auto) 0.0, PT 11.2, INR 1.00, D-Dimer 0.29, Sodium 134 L, Potassium 3.9, Chloride 101, Carbon Dioxide 30, Anion Gap 6.9, BUN 22 H, Creatinine 1.40 H, Estimated Creat Clear 45, Estimated GFR 49 L, Est GFR ( Amer) 60, Glucose 131 H, Calcium 8.3 L, Total Bilirubin 0.6, AST 20, ALT 15, Alkaline Phosphatase 69, Troponin I < 0.01, NT-Pro-B Natriuret Pep 1410 H, Total Protein 6.8, Albumin 3.7, Globulin 3.1, Albumin/Globulin Ratio 1.2, SARS-CoV-2 (PCR) Not detected, Influenza A Untype (PCR) Not detected, Influenza Type B (PCR) Not detected Orders (Tests/Meds): ED MEDICATIONS Discontinued Medications Generic Name Dose Route Start Last Admin Trade Name Freq PRN Reason Stop Dose Admin Acetaminophen 1,000 mg 01/09/24 19:26 01/09/24 19:46 Acetaminophen 1,000mg/100ml Vial IV 01/09/24 19:27 1,000 mg ONCE ONE Administration Albuterol/Ipratropium 3 ml 01/09/24 19:26 01/09/24 20:18 Ipratropium/Albuterol 3 Ml Neb 01/09/24 19:27 3 ml ONCE ONE Administration Dexamethasone Sodium Phosphate 10 mg 01/09/24 19:26 01/09/24 19:46 Dexamethasone 4mg/Ml 5ml Mdv IV 01/09/24 19:27 10 mg ONCE ONE Administration Ketorolac Tromethamine 15 mg 01/09/24 19:26 01/09/24 19:46 Ketorolac 30mg/Ml Vial IV 01/09/24 19:27 15 mg ONCE ONE Administration ORDERS Category Date Time Status Chest XR 2 view (NOT portable) [XR chest 2V] Stat Exams 01/09/24 19:26 Completed BNP [NT Pro Brain Natriuretic Pep.] Stat Lab 01/09/24 19:29 Completed CBC w/Auto Diff [Complete Blood Count Auto Diff] Stat Lab 01/09/24 19:29 Completed CMP [Comprehensive Metabolic Panel] Stat Lab 01/09/24 19:29 Completed D-Dimer Stat Lab 01/09/24 19:29 Completed INR [Prothrombin Time INR] Stat Lab 01/09/24 19:29 Completed Rapid PCR Covid and Flu A/B Stat Lab 01/09/24 19:29 Completed Trop I [Troponin I] Stat Lab 01/09/24 19:29 Completed Troponin I Q3H Lab 01/09/24 22:30 Ordered Troponin I Q3H Lab 01/10/24 01:30 Ordered VBG [Venous Blood Gas] Stat RT 01/09/24 19:27 Completed ECG Data Tracing #1: I reviewed this ECG and interpreted as documented below: Normal sinus rhythm with a ventricular rate of [address] changes concerning for STEMI. PVC noted. Normal axis. ECG initial impression date: 01/09/24 ECG initial impression time: 19:50 Critical Care <MICHELLE Kumar - Last Filed: 01/09/24 21:11> Critical Care Time Critical Care Time: No
--- NOTE | 2024-01-09 19:26 | XR_ITS ---
PROCEDURE INFORMATION: Exam: XR Chest Exam date and time: 01/09/2024 7:22 PM Age: 73 years old Clinical indication: Dyspnea; Patient HX: PT has copd TECHNIQUE: Imaging protocol: Radiologic exam of the chest. Views: 2 views. COMPARISON: CT LUNG SCREENING 02/07/2023 10:40 AM FINDINGS: Lungs: There are severe centrilobular emphysematous changes of the lungs with an apical gradient. No consolidations or pleural effusions. Pleural spaces: See Lungs finding. Heart/Mediastinum: Unremarkable. No cardiomegaly. Bones/joints: Unremarkable. IMPRESSION: No acute findings.
[2024-01-09 19:38] LABS: Basophils % 0.7 % (0.1-2.0); Eosinophils # 0.1 K/mm3 (0.0-0.4); Eosinophils % 2.1 % (0.1-12.0); Hematocrit 38.6 % (42.0-52.0); Hemoglobin 11.7 g/dL (14.1-18.0); Lymphocytes % 23.5 % (10-50); Mean Corpuscular HGB Conc 30.3 g/dL (31.8-35.4); Mean Corpuscular Hemoglobin 26.7 pg (27.0-31.2); Mean Corpuscular Volume 88.1 fl (80-94); Mean Platelet Volume 7.9 fl (7.4-10.4); Monocytes # 0.4 K/mm3 (0.1-1.0); Monocytes % 10.2 % (1.7-9.3); Neutrophils # 2.7 K/mm3 (1.8-7.8); Neutrophils % 63.6 % (37.0-80.0); Platelet Count 223 K/mm3 (142-424); Red Blood Count 4.38 M/mm3 (4.60-6.20); Red Cell Distribution Width 14.5 % (11.5-17.5); White Blood Count 4.2 K/mm3 (4.8-10.8)
[2024-01-09 19:44] LABS: VBG HCO3 27.8 mmol/L (23-30); VBG PCO2 39.5 mmol/L (35-51); VBG PH 7.47 mmol/L (7.31-7.41); VBG PO2 136.5 mmol/L (28-40)
[2024-01-09] MEDS: DEXAMETHASONE 4MG/ML 5ML MDV 10 MG IV (19:46)
[2024-01-09] MEDS: KETOROLAC 30MG/ML VIAL 15 MG IV (19:46)
[2024-01-09] MEDS: ACETAMINOPHEN 1,000MG/100ML VIAL 1000 MG IV (19:46)
[2024-01-09 19:47] LABS: Albumin Level 3.7 g/dl (3.5-5.0); Chloride 101 mmol/L (98-107)
[2024-01-09 19:48] LABS: Potassium 3.9 mmoL/L (3.5-5.1); Sodium 134 mmol/L (136-145)
--- NOTE | 2024-01-09 19:48 | ECG_ITS ---
APPROVED REPORT Exam: Resting ECG HR:79 bpm ECG Measurements Heart Rate 79 AXES KS 140 P 70 QRSd 70 QRS 64 QT 338 T 87 QTc 373 Conclusion SINUS RHYTHM WITH OCCASIONAL VENTRICULAR PREMATURE COMPLEXES POSSIBLE LEFT ATRIAL ENLARGEMENT [-0.1mV P-WAVE IN V1/V2] NONSPECIFIC ST & T-WAVE ABNORMALITY BORDERLINE ECG Electronically signed by : PIA BENNETT, 01/10/2024 19:15:57
[2024-01-09 19:50] LABS: Blood Urea Nitrogen 22 mg/dl (9-20); Creatinine Clearance Estimated 45 mL/min (50-200); Estimated Glomerular Filt Rate 49 ml/min (>60); GFR (African American) 60 ML/MIN (>60)
[2024-01-09 19:51] LABS: Alanine Aminotransferase 15 U/L (12-78); Albumin/Globulin Ratio 1.2 (1.1-1.8); Alkaline Phosphatase 69 U/L (38-126); Anion Gap 6.9 mEq/L (5-15); Aspartate Amino Transferase 20 U/L (17-59); Bilirubin,Total 0.6 mg/dl (0.2-1.3); Calcium 8.3 mg/dl (8.4-10.2); Carbon Dioxide 30 mmol/L (22.0-30.0); Globulin 3.1 g/dL (1.3-3.2); Glucose 131 mg/dl (74-100); Total Protein,Serum 6.8 g/dl (6.3-8.2)
[2024-01-09 19:54] LABS: Prothrombin Time 11.2 seconds (10.1-12.5)
[2024-01-09 20:00] VITALS: BP 100/52; PULSE 74; RESP 20; O2SAT 100
[2024-01-09 20:00] LABS: NT Pro Brain Natriuretic Pep. 1410 pg/mL (0-450)
[2024-01-09 20:06] LABS: Troponin I < 0.01 ng/ml (0.00-0.034)
[2024-01-09 20:14] LABS: Coronavirus 19, PCR Not Detected (NotDetected); Influenza A, PCR Not Detected (NotDetected); Influenza B, PCR Not Detected (NotDetected)
[2024-01-09 20:18] VITALS: PULSE 75; O2SAT 98
[2024-01-09] MEDS: IPRATROPIUM/ALBUTEROL 3 ML NEB IH (20:18)
[2024-01-09 20:25] VITALS: PULSE 76
[2024-01-09 20:29] LABS: D-Dimer 0.29 ug/mL (0.0-0.5)
[2024-01-09 21:20] VITALS: BP 109/56; PULSE 88; RESP 20; TEMP 37.1; O2SAT 95
== END 2024-01-09 21:21 | disposition home or self-care (01) ==
PROVIDERS: Physician Assistant; Emergency Provider Emergency Medicine; PCP Family Medicine
DX: J44.1 Chronic obstructive pulmonary disease with (acute) exacerbation (principal); R06.02 Shortness of breath; Z87.891 Personal history of nicotine dependence; Z99.81 Dependence on supplemental oxygen
CPT/HCPCS: 71046; 80053; 82803; 83880; 84484; 85025; 85378; 85610; 87636; 93005; 96374; 96375; 99285; J0131; J1100; J1885; J7620

== ENCOUNTER 2024-02-14 11:18 | Outpatient (CLI) | payer MEDICARE, SELFPAY ==
--- NOTE | 2024-02-14 11:21 | CT_ITS ---
FINAL REPORT TECHNIQUE: Thin section axial CT with contrast with multiplanar reconstruction This study was performed with techniques to keep radiation doses as low as reasonably achievable, (ALARA). Individualized dose reduction techniques using automated exposure control or adjustment of mA and/or kV according to the patient''s size were employed. CLINICAL HISTORY: SOB/Chest pain COMPARISON: 02/07/2023 FINDINGS: Pulmonary vessels enhance in normal fashion without evidence of embolism. Thoracic aorta shows no dissection or aneurysm. There is an oval nodule in the right upper lobe well seen on image 44 measuring 6 x 4 mm, unchanged. No new pulmonary lesion is identified. Note is made of bronchiectasis. Emphysema is identified. There is no significant pleural effusion. There is no significant pericardial effusion. No mediastinal or hilar adenopathy is present. IMPRESSION: No evidence of pulmonary embolism. No acute lung disease. Redemonstration of bronchiectasis and stable right upper lobe nodule. Reviewed, Interpreted and Dictated by Adriana Kirkpatrick MD Transcribed by Kelly Briseno Authenticated and [facility]
[2024-02-14 11:58] LABS: Blood Urea Nitrogen 19 mg/dl (9-20); Estimated Glomerular Filt Rate 73 ml/min (>60); GFR (African American) 88 ML/MIN (>60)
[2024-02-14] MEDS: 0.9 % SODIUM CHLORIDE 50 ML VIAL IV (12:13)
[2024-02-14] MEDS: SODIUM CHLORIDE 0.9% 10ML SYR (RAD ONLY) 10 ML IV (12:14)
[2024-02-14] MEDS: IOPAMIDOL-370 (76%);100ML BOTTLE 70 ML IV (12:14)
== END 2024-02-14 23:59 | disposition home or self-care (01) ==
LOC: RAD 11:19
PROVIDERS: PCP Family Medicine; Visit Provider Internal Medicine Pulmonary Disease
DX: R07.9 Chest pain, unspecified (principal)
CPT/HCPCS: 36415; 71275; 82565; 84520; Q9967

== ENCOUNTER 2024-04-20 07:51 | Outpatient (CLI) | payer MEDICARE, SELFPAY ==
--- NOTE | 2024-04-20 08:05 | CA_ITS ---
APPROVED REPORT EXAM: Comprehensive 2D, Doppler, and color-flow Echocardiogram Manufacturing Executive: MAGALI Castrejon, RVS Ht: 5 ft 8 in Wt: 136lbs BSA: 1.73 BP: 130/53 mmHg Rhythm: Bradycardia Indications: SOB, COPD, CP, Ex-smoker Echo Enhancing Agent Comments: Cardiac arrythmia throughout 2D Dimensions IVSd 0.88 cm M: 0.6-1.2 LA Volume 65.90 mL PWd 0.81 cm M: 0.6 - 1.2 LA Volume Index [id number] mL/m2 (M/F) 16-34 LVDd 4.91 cm M: 4.2 - 5.9 Left Atrium 2.47 cm M: 3.0 - 4.0 M-Mode Dimensions RVDd 2.38 cm (0.9-2.6) LA Diam 3.51 cm (1.9-4.0) LVDd 4.90 cm (3.5-5.7) LVDs 3.93 cm (3.5-5.7) IVSd 0.89 cm (0.6-1.1) PWd 0.87 cm (0.6-1.1) EF (Teich) 40.50% EPSs 0.37 cm FS 19.80% EDV (Teich) 112.80 mL TAPSE 2.30 (<1.7) ESV (Teich) 67.10 mL LV Diastology E Decel Time 133 (160-240 msec) E/A Ratio 1.24 MED A' 13.40 cm/s LAT A' 12.30 cm/s Aortic Valve MANNIE Index 0.96 cm2/m2 AoV Peak Tejinder. 117.0 (50-130 cm/s) AO Peak GR. 5.50 mmHg AO Mean GR. 2.70 (<5 mmHg) AO VTI 26.7 (18-25 cm) MANNIE (VTI) 1.71 (2.5-4.5 cm2) Mitral Valve MV A Velocity 73.0 (40-130 cm/s) E/A Ratio 1.24 Pulmonary Valve PV Peak Velocity 95.0 (50-150 cm/s) MI End VMAX 201.0 cm/s Left Ventricle The left ventricle is normal size. The left ventricular systolic function is normal. The left ventricular ejection fraction is within the normal range. There is normal left ventricular wall thickness. There is normal LV segmental wall motion. Diastolic function is indeterminate. LVEF is 45%. Right Ventricle The right ventricle is normal size. The right ventricular systolic function is normal. Atria The left atrium size is normal. The right atrium size is normal. There is no Doppler evidence of interatrial shunt. Aortic Valve The aortic valve is mildly thickened. There is no aortic valvular stenosis. Mild aortic regurgitation. Mitral Valve The mitral valve is normal in structure. No evidence of mitral valve stenosis. Trace mitral regurgitation. Tricuspid Valve Tricuspid valve is grossly normal in structure and function. Trace tricuspid regurgitation. There is insufficient TR jet to estimate RVSP. Pulmonic Valve The pulmonary valve is normal in structure. Mild pulmonic regurgitation. Great Vessels The aortic root is normal in size. IVC is normal in size and collapses >50% with inspiration. Pericardium There is no pericardial effusion. Other Information Study Quality: Fair Conclusion Mildly reduced LV systolic function (LVEF 45%). Mild AI, mild MI. Electronically signed by : Nancy Baker MD 04/20/2024 14:57:24
== END 2024-04-20 23:59 | disposition home or self-care (01) ==
LOC: RT 07:52
PROVIDERS: PCP Family Medicine; Visit Provider Nurse Practitioner
DX: I35.1 Nonrheumatic aortic (valve) insufficiency (principal); R06.09 Other forms of dyspnea
CPT/HCPCS: 93306

== ENCOUNTER 2024-04-26 10:18 | Outpatient (CLI) | payer MEDICARE, SELFPAY | END 2024-04-26 23:59 | disposition home or self-care (01) | LOC: RT 10:21 | PROVIDERS: PCP Family Medicine; Visit Provider Nurse Practitioner | DX: I48.0 Paroxysmal atrial fibrillation (principal); I49.3 Ventricular premature depolarization; R06.09 Other forms of dyspnea | CPT/HCPCS: 93225; 93227 ==

== ENCOUNTER 2024-05-03 11:14 | Outpatient (CLI) | payer MEDICARE, SELFPAY ==
--- NOTE | 2024-05-03 | CA_ITS ---
APPROVED REPORT Exam: Pharmacologic Technologist: Zaina Stafford Ht: 5 ft 8 in Wt: 137 lbs BSA: 1.74 m2 Stress Test Details Reason for pharmacologic stress test: physical limitation. HR Resting HR: 87 bpm Max Heart Rate (APMHR): 144.012989 bpm Max HR Achieved: 94 bpm Target HR (85% APMHR): 122.254983 bpm % of APMHR: 65.28 Recovery HR: 81 bpm BP Resting BP: 144.0/74.0 mmHg Max BP: 163.0/76.0 mmHg Recovery BP: 140.0/74.0 mmHg ECG Resting ECG: NSR, frequent PACs & PVCs, LVH, ST-T abns inferiorly. Stress ECG Conclusion Symptoms: SOA. No CP. Arrhythmias/Ectopy: Frequent PACs. Frequent PVCs. Rare vent. couplet. ST-T Changes: No significant changes. Conclusion: Unremarkable Lexiscan stress. Electronically signed by : Nancy Baker MD 05/04/2024 00:37:46
--- NOTE | 2024-05-03 11:15 | NM_ITS ---
APPROVED REPORT Exam: Nuclear Stress Test Indication: soa..fatigue Patient Location: Outpatient Stress Tech: Zaina Marsh MI Tech:Laly Watson MELISSA RT(R)(N) Ht: 5 ft 8 in Wt: 139 lbs HR: 76 bpm BP: 144/74 mmHg BSA: 1.75 m2 TID: 1.09 BMI: 21.1 History: soa..fatigue Procedure: Patient received 0.4 mg of intravenous Lexiscan, resting heart rate 76 bpm, resting blood pressure 144/74 mmHg, with Lexiscan maximum heart rate achieved was 88 bpm which is 85 % of the maximum predicted heart rate and blood pressure was 163/70 mmHg. With Lexiscan, patient denied any complaint of chest pain. The patient was not able to lay on his abdomen for prone images. Cardiac Stress and Resting SPECT Images: Cardiac Stress and Resting SPECT images were obtained using technetium 99m Myoview 32.8 mCi stress and 10.74 mCi at rest. The patient could not lie on his abdomen. Therefore, prone press imaging could not be performed. This may affect the diagnostic interpretation of the study findings. Resting and stress imaging in supine position demonstrate a large sized, moderate, predominantly fixed perfusion defect in the basal to mid septal, inferoseptal, and inferior LV roe. There is a small region of surrounding reversibility, suggestive of partial ischemia. Gated imaging demonstrates moderate reduction global LV systolic function. There is severe hypokinesis of the septal and inferior LV roe. LVEF is calculated at 37%. Conclusion: Large sized, moderate, predominantly fixed perfusion defect in the basal to mid septal, inferoseptal, and inferior LV roe. There is a small region of surrounding reversibility, suggestive of partial ischemia. Gated imaging demonstrates moderate reduction global LV systolic function. There is severe hypokinesis of the septal and inferior LV roe. LVEF is calculated at 37%. Electronically signed by : Nancy Baker MD 05/04/2024 00:41:07
[2024-05-03] MEDS: ISOTOPE MYOVIEW (PER STUDY) 1 DOSE IV (12:58)
[2024-05-03] MEDS: REGADENOSON 0.4MG/5ML SYRINGE 0.4 MG IV (12:58)
[2024-05-03] MEDS: SODIUM CHLORIDE 0.9% 10ML SYR (RAD ONLY) 10 ML IV (12:58)
== END 2024-05-03 23:59 | disposition home or self-care (01) ==
LOC: RAD 11:15
PROVIDERS: PCP Family Medicine; Visit Provider Nurse Practitioner
DX: R06.09 Other forms of dyspnea (principal); I48.0 Paroxysmal atrial fibrillation; R06.02 Shortness of breath
CPT/HCPCS: 78452; 93017; 93018; A9502; J2785

== ENCOUNTER 2024-06-01 10:59 | Outpatient (CLI) | payer MEDICARE, SELFPAY | END 2024-06-01 23:59 | disposition home or self-care (01) | LOC: RT 11:00 | PROVIDERS: PCP Psychiatry & Neurology Sleep Medicine; Visit Provider Internal Medicine | DX: I48.0 Paroxysmal atrial fibrillation (principal); R06.09 Other forms of dyspnea; R93.1 Abnormal findings on diagnostic imaging of heart and coronary circulation | CPT/HCPCS: 93270 ==

== ENCOUNTER 2024-06-07 09:50 | Outpatient (CLI) | payer MEDICARE, SELFPAY ==
[2024-06-07 10:20] VITALS: PULSE 66; PULSE 67
[2024-06-07] MEDS: ALBUTEROL 0.083% 2.5 MG/3 ML NEB IH (10:20)
== END 2024-06-07 23:59 | disposition home or self-care (01) ==
LOC: RT 09:50
PROVIDERS: PCP Family Medicine; Visit Provider Internal Medicine Pulmonary Disease
DX: R06.09 Other forms of dyspnea (principal)
CPT/HCPCS: 94060; 94618; 94640; J7613

== ENCOUNTER 2024-06-08 07:56 | Day surgery (SDC) | payer MEDICARE, SELFPAY ==
[2024-06-08] VITALS (11 sets, daily range): BP systolic 92–157; BP diastolic 57–83; PULSE 42–73; RESP 16–100; TEMP 37; O2SAT 97–100; BMI 21.6
--- NOTE | 2024-06-08 07:22 | IR_ITS ---
APPROVED REPORT Patient Location: Outpatient Executive Director Of Nursing: Joaquim Choudhury, RT (R) PROCEDURES Left heart catheterization Left ventriculogram Selective coronary angiogram Drug-eluting stent deployment to the proximal mid and distal dominant right coronary artery in a contiguous manner INDICATION Abnormal Myoview, Coronary artery disease Informed consent was obtained prior to the procedure. COMPLICATIONS None Estimated Blood Loss: Less than 10 mls TECHNIQUE One percent lidocaine used to anesthetize the right anterior aspect of the wrist. The right radial artery was accessed via the Seldinger technique. A 6 Slovenian sheath was placed in the right radial artery. 2.5 mg of Verapamil, 800 mcg of nitroglycerin, 1mg Lidocaine and 5000 U Heparin were given through the arterial sheath. The 6 Slovenian JL 3 guide catheter was also used to perform left heart catheterization, left ventriculogram and selective coronary angiogram. At the end the diagnostic angiogram therapeutic heparin was administered giving a therapeutic ACT and the guide catheter was placed in the right coronary followed by a Choice PT extra-support wire. A 4 mm x 38 mm Spencer frontier stent was deployed at 16 manjeet reducing the stenosis. A 4 mm x 12 mm noncompliant balloon was deployed at 24 manjeet up and down the right coronary artery. 800 mcg of intracoronary nitroglycerin was administered due to mild no reflow phenomenon. This did improve flow however distally there remained a stenosis therefore 3.5 x 38 mm Spencer frontier stent was placed distal to the for stent yet still overlapping and deployed at 16 manjeet. The balloon was brought back and deployed at 20 manjeet to post dilate. Excellent angiograph results were obtained with ROSA-3 flow being present before and after the procedure. At the end the procedure the apparatus was removed the sheath was removed and hemostasis was achieved and TR banding patient was transferred to the postop holding area in stable condition ANGIOGRAPHIC RESULTS The left main artery Normal The left anterior descending artery Has proximal and mid vessel 10% luminal regularities. A medium sized 2.25 to 2.5 mm first diagonal artery has a proximal and mid vessel concentric 70% stenosis The circumflex artery Nondominant with mild 10% luminal regularities The right coronary artery Large and dominant with mid vessel concentric calcified 80% stenosis and distal 70% stenosis The PIZANO ventriculogram reveals Not performed The left ventricular end-diastolic pressure 15 mmHg IMPRESSION Severe disease involving the right coronary as described above Successful stenting of the proximal mid and distal dominant right coronary artery severe disease reduced to 0% with 2 contiguous drug-eluting stents Persistent severe stenosis in a medium sized first diagonal artery which is best managed medically Normal LVEDP PLAN 1. Dual antiplatelet therapy 2. Cardiac rehabilitation 3. Avoidance of tobacco products 4. LDL less than 55 to be achieved with high intensity statin 5. Risk factor modification Electronically signed by : Varun Lyles MD 06/08/2024 10:57:04
[2024-06-08 08:27] LABS: Basophils % 0.6 % (0.1-2.0); Eosinophils # 0.1 K/mm3 (0.0-0.4); Eosinophils % 2.7 % (0.1-12.0); Hematocrit 40.9 % (42.0-52.0); Hemoglobin 12.7 g/dL (14.1-18.0); Lymphocytes % 28.6 % (10-50); Mean Corpuscular HGB Conc 31.1 g/dL (31.8-35.4); Mean Corpuscular Volume 83.8 fl (80-94); Mean Platelet Volume 9.6 fl (7.4-10.4); Monocytes # 0.5 K/mm3 (0.1-1.0); Monocytes % 15.4 % (1.7-9.3); Neutrophils # 1.8 K/mm3 (1.8-7.8); Neutrophils % 52.7 % (37.0-80.0); Platelet Count 216 K/mm3 (142-424); Red Blood Count 4.88 M/mm3 (4.60-6.20); Red Cell Distribution Width 13.7 % (11.5-17.5); White Blood Count 3.3 K/mm3 (4.8-10.8)
[2024-06-08 08:36] LABS: Anion Gap 8.5 mEq/L (5-15); Blood Urea Nitrogen 16 mg/dl (9-20); Calcium 9.4 mg/dl (8.4-10.2); Carbon Dioxide 32 mmol/L (22.0-30.0); Chloride 101 mmol/L (98-107); Creatinine Clearance Estimated 44 mL/min (50-200); Estimated Glomerular Filt Rate 54 ml/min (>60); GFR (African American) 65 ML/MIN (>60); Glucose 102 mg/dl (74-100); Potassium 3.5 mmoL/L (3.5-5.1); Sodium 138 mmol/L (136-145)
[2024-06-08] MEDS: HEPARIN 1,000 UNITS/500ML NS (CATH LAB) 3000 UNIT IV (10:09)
[2024-06-08] MEDS: HEPARIN 1,000 UNITS/ML 10ML VIAL (CATH LAB) 10000 UNIT IV (10:10)
[2024-06-08] MEDS: diphenhydrAMINE 50MG/ML VIAL 50 MG IV (10:10)
[2024-06-08] MEDS: VERAPAMIL 2.5MG/ML 2ML VIAL 2.5 MG IV (10:10)
[2024-06-08] MEDS: LIDOCAINE 1% 10ML MDV 20 ML IJ (10:10)
[2024-06-08] MEDS: NITROGLYCERIN 800MCG/8ML SYR (CATH LAB) 800 MCG IA ×2 (10:12→10:46)
[2024-06-08] MEDS: 0.9 % SODIUM CHLORIDE 500 ML 25 ML IV (10:12)
[2024-06-08] MEDS: MIDAZOLAM HCL 1MG/ML 5ML VIAL 1 MG IV (10:54)
[2024-06-08] MEDS: FENTANYL 100MCG/2ML VIAL 50 MCG IV (10:54)
[2024-06-08] MEDS: CLOPIDOGREL 300MG TABLET 600 MG PO (11:13)
[2024-06-08] MEDS: ASPIRIN 325MG TABLET 325 MG PO (11:17)
[2024-06-08] MEDS: IOPAMIDOL-370 (76%);100ML BOTTLE 90 ML IV (14:57)
[2024-06-08 15:29] LABS: CATHL Activated Clotting Time 338 SEC (74-125)
== END 2024-06-08 14:49 | disposition home or self-care (01) ==
PROVIDERS: PCP Family Medicine; Visit Provider Internal Medicine
DX: I25.10 Atherosclerotic heart disease of native coronary artery without angina pectoris (principal); I77.1 Stricture of artery; I48.0 Paroxysmal atrial fibrillation; Z95.5 Presence of coronary angioplasty implant and graft; R94.39 Abnormal result of other cardiovascular function study; I10 Essential (primary) hypertension; I42.9 Cardiomyopathy, unspecified; I50.20 Unspecified systolic (congestive) heart failure; Z79.899 Other long term (current) drug therapy
CPT/HCPCS: 80048; 85025; 85347; 92928; 93458; 99152; 99153; C1725; C1769; C1874; C1894; C9600; J1200; J1644; J2250; J3010; Q9967

== ENCOUNTER 2024-06-19 11:59 | Outpatient (CLI) | payer MEDICARE, SELFPAY ==
[2024-06-19 13:14] LABS: Free T4 (Free Thyroxine) 1.21 ng/dl (0.78-2.19)
[2024-06-19 13:50] LABS: Alanine Aminotransferase 22 U/L (12-78); Albumin Level 3.8 g/dl (3.5-5.0); Alkaline Phosphatase 71 U/L (38-126); Anion Gap 10.4 mEq/L (5-15); Aspartate Amino Transferase 28 U/L (17-59); Bilirubin,Direct 0.2 mg/dl (0.0-0.4); Bilirubin,Indirect 0.1 mg/dL (0.0-0.9); Bilirubin,Total 0.3 mg/dl (0.2-1.3); Bilirubin,Unconjugated 0.2 mg/dL (0.0-1.1); Blood Urea Nitrogen 23 mg/dl (9-20); Carbon Dioxide 32 mmol/L (22.0-30.0); Chloride 101 mmol/L (98-107); Chol/HDL Ratio 1.3 (1-3.5); Cholesterol 125 mg/dl (140-200); Estimated Glomerular Filt Rate 42 ml/min (>60); GFR (African American) 51 ML/MIN (>60); Glucose 96 mg/dl (74-100); HDL Cholesterol 95 mg/dl (40-60); Magnesium 1.7 mg/dl (1.6-2.3); Potassium 3.4 mmoL/L (3.5-5.1); Sodium 140 mmol/L (136-145); Total Protein,Serum 5.9 g/dl (6.3-8.2); Triglycerides 56 mg/dl (30-150); VLDL Cholesterol 11 mg/dL (0-40)
[2024-06-19 14:02] LABS: Direct LDL Cholesterol < 30.00 mg/dL (100-129)
[2024-06-19 14:22] LABS: Thyroid Stimulating Hormone 1.38 uIU/mL (0.465-4.68)
[2024-06-19 14:23] LABS: Basophils % 0.2 % (0.1-2.0); Eosinophils # 0.1 K/mm3 (0.0-0.4); Eosinophils % 2.5 % (0.1-12.0); Hematocrit 38.9 % (42.0-52.0); Hemoglobin 11.9 g/dL (14.1-18.0); Lymphocytes # 2.1 K/mm3 (0.7-4.5); Lymphocytes % 39.2 % (10-50); Mean Corpuscular HGB Conc 30.6 g/dL (31.8-35.4); Mean Corpuscular Hemoglobin 25.8 pg (27.0-31.2); Mean Corpuscular Volume 84.2 fl (80-94); Mean Platelet Volume 10.1 fl (7.4-10.4); Monocytes # 0.7 K/mm3 (0.1-1.0); Monocytes % 12.9 % (1.7-9.3); Neutrophils # 2.4 K/mm3 (1.8-7.8); Neutrophils % 45.2 % (37.0-80.0); Platelet Count 241 K/mm3 (142-424); Red Blood Count 4.62 M/mm3 (4.60-6.20); Red Cell Distribution Width 13.7 % (11.5-17.5); White Blood Count 5.3 K/mm3 (4.8-10.8)
== END 2024-06-19 23:59 | disposition home or self-care (01) ==
LOC: LAB 12:00
PROVIDERS: PCP Family Medicine; Visit Provider Nurse Practitioner Family
DX: I48.0 Paroxysmal atrial fibrillation (principal); R94.31 Abnormal electrocardiogram [ECG] [EKG]; I42.8 Other cardiomyopathies; I49.3 Ventricular premature depolarization; I10 Essential (primary) hypertension; J43.2 Centrilobular emphysema; R06.02 Shortness of breath; I25.10 Atherosclerotic heart disease of native coronary artery without angina pectoris; Z95.5 Presence of coronary angioplasty implant and graft
CPT/HCPCS: 36415; 80048; 80061; 80076; 83735; 84439; 84443; 85025

== ENCOUNTER 2024-06-29 12:42 | Outpatient (CLI) | payer MEDICARE, SELFPAY ==
[2024-06-29 13:32] LABS: Chloride 108 mmol/L (98-107); Potassium 3.3 mmoL/L (3.5-5.1); Sodium 143 mmol/L (136-145)
[2024-06-29 13:35] LABS: Anion Gap 7.3 mEq/L (5-15); Blood Urea Nitrogen 12 mg/dl (9-20); Calcium 8.1 mg/dl (8.4-10.2); Carbon Dioxide 31 mmol/L (22.0-30.0); Estimated Glomerular Filt Rate 65 ml/min (>60); GFR (African American) 79 ML/MIN (>60); Glucose 94 mg/dl (74-100)
== END 2024-06-29 23:59 | disposition home or self-care (01) ==
LOC: LAB 12:42
PROVIDERS: PCP Family Medicine; Visit Provider Nurse Practitioner Family
DX: I51.9 Heart disease, unspecified (principal); E78.2 Mixed hyperlipidemia; Z95.5 Presence of coronary angioplasty implant and graft; I25.10 Atherosclerotic heart disease of native coronary artery without angina pectoris; R94.31 Abnormal electrocardiogram [ECG] [EKG]; I48.0 Paroxysmal atrial fibrillation
CPT/HCPCS: 36415; 80048

== ENCOUNTER 2024-07-10 08:40 | Outpatient (CLI) | payer MEDICARE, SELFPAY ==
[2024-07-10 09:06] LABS: Hematocrit 36.8 % (42.0-52.0); Hemoglobin 11.3 g/dL (14.1-18.0); Lymphocytes # 0.5 K/mm3 (0.7-4.5); Lymphocytes % 9.6 % (10-50); Mean Corpuscular HGB Conc 30.7 g/dL (31.8-35.4); Mean Corpuscular Hemoglobin 26.3 pg (27.0-31.2); Mean Corpuscular Volume 85.8 fl (80-94); Mean Platelet Volume 11.2 fl (7.4-10.4); Monocytes # 0.2 K/mm3 (0.1-1.0); Monocytes % 4.2 % (1.7-9.3); Neutrophils # 4.1 K/mm3 (1.8-7.8); Platelet Count 179 K/mm3 (142-424); Red Blood Count 4.29 M/mm3 (4.60-6.20); Red Cell Distribution Width 14.6 % (11.5-17.5); White Blood Count 4.8 K/mm3 (4.8-10.8)
[2024-07-10 11:22] LABS: Anion Gap 7.6 mEq/L (5-15); Blood Urea Nitrogen 17 mg/dl (9-20); Calcium 8.5 mg/dl (8.4-10.2); Carbon Dioxide 29 mmol/L (22.0-30.0); Chloride 107 mmol/L (98-107); Estimated Glomerular Filt Rate 73 ml/min (>60); GFR (African American) 88 ML/MIN (>60); Glucose 123 mg/dl (74-100); Potassium 3.6 mmoL/L (3.5-5.1); Sodium 140 mmol/L (136-145)
== END 2024-07-10 23:59 | disposition home or self-care (01) ==
LOC: LAB 08:42
PROVIDERS: PCP Family Medicine; Visit Provider Internal Medicine
DX: Z95.5 Presence of coronary angioplasty implant and graft (principal)
CPT/HCPCS: 36415; 80048; 85025

== ENCOUNTER 2024-07-17 11:08 | Outpatient (CLI) | payer MEDICARE, SELFPAY ==
[2024-07-17 11:48] LABS: Reticulocyte % (Auto) 1.3 % (0.9-3.2)
[2024-07-17 12:17] LABS: Lactate Dehydrogenase 239 U/L (313-618)
[2024-07-17 12:31] LABS: Iron 146 ug/dL (49-181)
[2024-07-17 12:40] LABS: Total Iron Binding Capacity 301 ug/dL (261-462)
[2024-07-17 13:07] LABS: Ferritin 19.9 ng/ml (17.9-464)
[2024-07-17 13:09] LABS: Vitamin B12 981 pg/mL (239-931)
[2024-07-17 13:28] LABS: Folate 6.81 ng/mL
[2024-07-18 14:05] LABS: Haptoglobin 203 mg/dL (34-355)
== END 2024-07-17 23:59 | disposition home or self-care (01) ==
LOC: LAB 11:09
PROVIDERS: PCP Family Medicine; Visit Provider Internal Medicine Medical Oncology
DX: D64.9 Anemia, unspecified (principal)
CPT/HCPCS: 36415; 82607; 82728; 82746; 83010; 83540; 83550; 83615; 85044; 86880

== ENCOUNTER 2024-08-11 14:27 | Inpatient (IN) | payer MEDICARE, SELFPAY ==
[2024-08-11] VITALS (15 sets, daily range): BP systolic 86–169; BP diastolic 51–84; PULSE 56–107; RESP 18–35; TEMP 36.4–39.6; O2SAT 66–100; BMI 22.1
--- NOTE | 2024-08-11 14:28 | PC.NURSE ---
respiratory notified of bi-pap order
--- NOTE | 2024-08-11 14:28 | PC.NURSE ---
DR DIAZ AT BEDSIDE
--- NOTE | 2024-08-11 14:29 | ECG_ITS ---
APPROVED REPORT Exam: Resting ECG HR:105 bpm ECG Measurements Heart Rate 105 AXES [place] 118 P 82 QRSd 78 QRS 78 QT 330 T 85 QTc 391 Conclusion SINUS TACHYCARDIA WITH SHORT [place] INTERVAL NONSPECIFIC ST & T-WAVE ABNORMALITY No STEMI Motion artifact Electronically signed by : PIA BENNETT, 08/12/2024 00:55:27
--- NOTE | 2024-08-11 14:29 | XR_ITS ---
PROCEDURE INFORMATION: Exam: XR Chest Exam date and time: 08/11/2024 2:40 PM Age: 74 years old Clinical indication: Dyspnea TECHNIQUE: Imaging protocol: Radiologic exam of the chest. Views: 1 view. COMPARISON: CT ANGIO CHEST PE PROTOCOL 02/14/2024 12:00 PM FINDINGS: Lungs: Hyperexpanded lung thrasher consistent with COPD. No consolidation. Pleural spaces: Unremarkable. No pleural effusion. No pneumothorax. Heart/Mediastinum: Unremarkable. No cardiomegaly. Bones/joints: Unremarkable. IMPRESSION: No acute findings.
[2024-08-11 14:36] LABS: Coronavirus 19, PCR Not Detected (NotDetected); Influenza B, PCR Not Detected (NotDetected)
[2024-08-11] MEDS: IPRATROPIUM/ALBUTEROL 3 ML NEB IH (14:37)
[2024-08-11 14:38] LABS: Basophils % 0.1 % (0.1-2.0); Hematocrit 39.4 % (42.0-52.0); Hemoglobin 12.1 g/dL (14.1-18.0); Lymphocytes # 1.9 K/mm3 (0.7-4.5); Lymphocytes % 24.3 % (10-50); Mean Corpuscular HGB Conc 30.7 g/dL (31.8-35.4); Mean Corpuscular Hemoglobin 26.1 pg (27.0-31.2); Mean Corpuscular Volume 84.9 fl (80-94); Mean Platelet Volume 10.2 fl (7.4-10.4); Monocytes # 0.7 K/mm3 (0.1-1.0); Monocytes % 8.9 % (1.7-9.3); Neutrophils # 5.2 K/mm3 (1.8-7.8); Neutrophils % 66.4 % (37.0-80.0); Platelet Count 180 K/mm3 (142-424); Red Blood Count 4.64 M/mm3 (4.60-6.20); Red Cell Distribution Width 14.5 % (11.5-17.5); White Blood Count 7.9 K/mm3 (4.8-10.8)
[2024-08-11] MEDS: MAGNESIUM SULFATE IN WATER 2 GM/50 ML PIGGYBACK IV (14:38)
[2024-08-11] MEDS: LACTATED RINGERS 1000ML 1,000 ML 999 ML IV (14:39)
--- NOTE | 2024-08-11 14:40 | HMH.EDGENADL ---
Discharge Plan Disposition Patient Disposition: Admitted Condition: Fair Clinical Impressions Clinical Impression: Sepsis, Acute exacerbation of chronic obstructive pulmonary disease, Acute respiratory distress, Acute hypoxemic respiratory failure, Influenza A Discharge ED Provider: Jose Sung General Adult HPI <Jose Sung MD - Last Filed: 08/11/24 14:46> General Chief complaint: Shortness of Breath/Dyspnea Stated complaint: SOA Time Seen by Provider: 08/11/24 14:28 History of Present Illness HPI narrative: Patient is a 74-year-old presenting today with severe respiratory distress and hypoxic respiratory failure. Wears 2 L nasal cannula at home is well-known to our respiratory therapists here in the hospital. Was found to be in respiratory distress by his who called EMS today. He was satting 66% on his 2 L. He was placed on a nonrebreather with improvement in his oxygen saturation. He was given Solu-Medrol and DuoNebs and route. He is unable to speak in more than 1 word sentences and is in respiratory distress and history is otherwise significantly limited. From a chart review standpoint he has coronary disease and LV dysfunction. Related Data Home Medications ?Medication ?Instructions ?Recorded ?Confirmed potassium chloride 10 mEq 10 meq PO DAILY 10/11/17 08/11/24 capsule,extended release tamsulosin 0.4 mg capsule 0.4 mg PO DAILY 07/28/22 08/11/24 bisoprolol fumarate 10 mg tablet 10 mg PO DAILY 08/11/24 08/11/24 Previous Rx's ?Medication ?Instructions ?Recorded aspirin 81 mg chewable tablet 81 mg PO DAILY #30 tabs 06/08/24 (Aspirin Childrens) atorvastatin 40 mg tablet (Lipitor) 40 mg PO HS #30 tabs 06/08/24 clopidogrel 75 mg tablet (Plavix) 75 mg PO DAILY #30 tabs 06/08/24 sacubitril 24 mg-valsartan 26 mg 1 tab PO BID #180 tabs 06/14/24 tablet (Entresto) bumetanide 1 mg tablet 1 mg PO DAILY #30 tabs 07/19/24 empagliflozin 10 mg tablet 10 mg PO DAILY #30 tabs 07/19/24 (Jardiance) spironolactone 50 mg tablet 50 mg PO DAILY #30 tabs 07/19/24 Allergies Allergy/AdvReac Type Severity Reaction Status Date / Time No Known Allergies Allergy Verified 07/19/24 15:04 [facility] <Jose Sung MD - Last Filed: 08/11/24 14:46> [facility] Disclaimer: The information contained in this section may have been updated after the patient was seen, as this information can be updated by other users. Medical History Dependence on continuous supplemental oxygen LV dysfunction Hyperlipidemia CAD (coronary artery disease) Abnormal nuclear cardiac imaging test History of echocardiogram Multiple lung nodules on CT Benign prostatic hyperplasia PVCs (premature ventricular contractions) Hypertension Encounter for pre-operative cardiovascular clearance Screening for lung cancer Multiple pulmonary nodules COPD (chronic obstructive pulmonary disease) Pulmonary emphysema Stopped smoking with greater than 30 pack year history Dyspnea on exertion SOB (shortness of breath) Sinus tachycardia Surgical History Stented coronary artery History of inguinal hernia repair History of colonoscopy History of cardiac cath Family History Other Diabetes Heart attack Hypertension Social History Smoking Status: Former smoker tobacco type: cigarettes alcohol intake: former substance use type: denies use current occupational status: retired Travel in the last 8 weeks: None household members: spouse and children housing: house Other Medical History Have you received the Flu Vaccine for this season: Yes Have you received the Pneumonia Vaccine: No <Nelia Shaffer DO - Last Filed: 08/11/24 16:53> ROS Obtained: Yes All systems reviewed & no additional complaints except as documented Physical Exam <Jose Sung MD - Last Filed: 08/11/24 14:46> General General appearance: in distress Respiratory Respiratory exam: Present other (Patient in severe respiratory distress speaking in single word sentences using accessory muscles prolonged expiratory phase diffuse expiratory wheezing noted nonfocal) Cardiovascular Cardiovascular exam: Present tachycardia <Nelia Shaffer DO - Last Filed: 08/11/24 16:53> Neurological Exam Neurological exam: Present alert Medical Decision Making <Jose Sung MD - Last Filed: 08/11/24 14:46> Medical Records Screening: Per USPSTF and CDC recommendations, given the prevalence of disease in our region, it is our hospital?s policy to screen for HIV and viral Hepatitis for all patients aged 18 and over and those with ongoing risk factors. Vital Signs: 08/11/24 14:34 08/11/24 14:44 08/11/24 14:45 Temperature 103.3 F H Temperature Source Oral Pulse Rate 102 H Pulse Rate [Right Radial] 107 H Respiratory Rate 27 H 32 H Blood Pressure 109/74 L Blood Pressure [Right Arm] 169/84 H Blood Pressure Mean 85 Blood Pressure Mean [Right Arm] 112 02 Sat by Pulse Oximetry 66 L 100 Oxygen Delivery Method Nasal Cannula BiPAP Oxygen Flow Rate (LPM) 2 Fraction of Inspired Oxygen 40 08/11/24 15:00 08/11/24 15:30 08/11/24 15:56 Temperature Temperature Source Pulse Rate 98 H 101 H 98 H Pulse Rate [Right Radial] Respiratory Rate 34 H 18 26 H Blood Pressure 107/63 L 86/53 L 101/56 L Blood Pressure [Right Arm] Blood Pressure Mean 77 64 67 Blood Pressure Mean [Right Arm] 02 Sat by Pulse Oximetry 100 100 100 Oxygen Delivery Method BiPAP BiPAP BiPAP Oxygen Flow Rate (LPM) Fraction of Inspired Oxygen 08/11/24 15:57 08/11/24 16:00 Temperature 98.2 F Temperature Source Pulse Rate 100 H 98 H Pulse Rate [Right Radial] Respiratory Rate 29 H 25 H Blood Pressure 101/58 L 95/54 L Blood Pressure [Right Arm] Blood Pressure Mean 60 Blood Pressure Mean [Right Arm] 02 Sat by Pulse Oximetry 100 Oxygen Delivery Method BiPAP BiPAP Oxygen Flow Rate (LPM) 40 Fraction of Inspired Oxygen Lab Data Lab Results 08/11/24 14:29: VBG pH 7.34, VBG pCO2 59.6 H, VBG pO2 53.2 H, VBG HCO3 31.1 H, VBG Total CO2 32.9 H, VBG O2 Saturation 82.5 H, VBG Base Excess 5.2 H, VBG Lactic Acid 2.2 H 08/11/24 14:30: WBC 7.9, RBC 4.64, Hgb 12.1 L, Hct 39.4 L, MCV 84.9, MCH 26.1 L, MCHC 30.7 L, RDW 14.5, Plt Count 180, MPV 10.2, Neut % (Auto) 66.4, Lymph % (Auto) 24.3, [place] % (Auto) 8.9, Eos % (Auto) 0.0 L, Baso % (Auto) 0.1, Neut # (Auto) 5.2, Lymph # (Auto) 1.9, [place] # (Auto) 0.7, Eos # (Auto) 0.0, Baso # (Auto) 0.0, D-Dimer 0.53 H, Total Creatine Kinase 238 H, Troponin I 0.02, NT-Pro-B Natriuret Pep 228, SARS-CoV-2 (PCR) Not detected, Influenza A Untype (PCR) Detected A, Influenza Type B (PCR) Not detected 08/11/24 14:40: Sodium 140, Potassium 3.8, Chloride 98, Carbon Dioxide 49 H*, Anion Gap -3.2 L, BUN 19, Creatinine 1.70 H, Estimated Creat Clear 36, Estimated GFR 39 L, Est GFR ( Amer) 48 L, Glucose 113 H, Calcium 8.1 L, Total Bilirubin 0.6, AST 37, ALT 23, Alkaline Phosphatase 84, Total Protein 6.5, Albumin 3.8, Globulin 2.7, Albumin/Globulin Ratio 1.4 08/11/24 14:47: Urine Color Yellow, Urine Appearance Clear, Urine pH 6.5, Ur Specific [place] 1.010, Urine Protein Negative, Urine Glucose (UA) >=1000, Urine Ketones Negative, Urine Blood Trace-i, Urine Nitrate Negative, Urine Bilirubin Negative, Urine Urobilinogen 0.2, Ur Leukocyte Esterase Negative, Urine RBC Occasional, Urine WBC Occasional, Ur Squamous Epith Cells Occasional, Urine Bacteria None 08/11/24 14:30 08/11/24 14:40 Orders (Tests/Meds): ED MEDICATIONS Generic Name Dose Route Start Last Admin Trade Name Freq PRN Reason Stop Dose Admin Acetaminophen 650 mg 08/11/24 15:44 Acetaminophen 325mg Tab PO 09/10/24 15:43 Q6HP PRN Fever or Mild Pain (1-3) Albuterol/Ipratropium 3 ml 08/11/24 15:46 Ipratropium/Albuterol 3 Ml Neb IH 09/10/24 15:45 Q2HP PRN Wheezing Ibuprofen 600 mg 08/11/24 15:44 Ibuprofen 600 Mg Tablet PO 09/10/24 15:43 Q6HP PRN Fever or Mild Pain (1-3) Discontinued Medications Generic Name Dose Route Start Last Admin Trade Name Freq PRN Reason Stop Dose Admin Acetaminophen 1,000 mg 08/11/24 14:45 08/11/24 14:50 Acetaminophen 1,000mg/100ml Vial IV 08/11/24 14:46 1,000 mg ONCE ONE Administration Albuterol Sulfate 20 mg 08/11/24 14:54 08/11/24 14:55 Albuterol 0.083% 2.5 Mg/3 Ml [facility] 08/11/24 14:55 20 mg ONCE ONE Administration Albuterol/Ipratropium 3 ml 08/11/24 14:28 08/11/24 14:37 Ipratropium/Albuterol 3 Ml Neb 08/11/24 14:29 3 ml ONCE ONE Administration Lactated Ringer's 1,000 mls @ 999 mls/hr 08/11/24 14:30 08/11/24 14:39 Lactated Ringer's 1000 Ml Bag IV 08/11/24 15:30 999 mls/hr .Q1H1M MATI Administration Magnesium Sulfate 2 gm in 50 mls @ 50 mls/hr 08/11/24 14:28 08/11/24 14:38 Magnesium Sulfate 2gm/50ml Premix IV 08/11/24 15:27 50 mls/hr ONCE ONE Administration Ceftriaxone Sodium 1 gm/ 50 mls @ 100 mls/hr 08/11/24 14:37 08/11/24 14:48 Sodium Chloride IV 08/11/24 15:06 100 mls/hr ONCE ONE Administration Azithromycin 500 mg/ Sodium 250 mls @ 250 mls/hr 08/11/24 14:37 08/11/24 14:58 Chloride IV 08/11/24 14:38 250 mls/hr ONCE ONE Administration ORDERS Category Date Time Status CXR --portable [XR chest portable] Stat Exams 08/11/24 14:29 Completed POCUS Point of Care (ER Only) Stat Exams 08/11/24 14:28 Completed BNP [NT Pro Brain Natriuretic Pep.] Stat Lab 08/11/24 14:30 Completed CBC w/Auto Diff [Complete Blood Count Auto Diff] Stat Lab 08/11/24 14:30 Completed CK [Creatine Kinase] Stat Lab 08/11/24 14:30 Completed CMP [Comprehensive Metabolic Panel] Stat Lab 08/11/24 14:40 Completed D-Dimer Stat Lab 08/11/24 14:30 Completed Lactate Venous Stat Lab 08/11/24 14:28 Ordered Rapid PCR Covid and Flu A/B Stat Lab 08/11/24 14:30 Completed Trop I [Troponin I] Stat Lab 08/11/24 14:30 Completed Troponin I Q3H Lab 08/11/24 17:30 Ordered Troponin I Q3H Lab 08/11/24 20:30 Ordered UA [Urinalysis and Microscopic] Stat Lab 08/11/24 14:47 Completed Blood Culture Stat Micro 08/11/24 14:40 Received Venous Blood Gas Stat RT 08/11/24 14:29 Completed Medical Decision Narrative: 74-year-old presenting today with acute hypoxic respiratory failure and severe respiratory distress and increased work of breathing. He has been placed on BiPAP with continuous breathing treatments and magnesium. Steroids have already been given prehospital. I did discuss with the patient and the family member that he is close to needing to be intubated and they are both agreeable to that if he gets to that point. Respiratory at the bedside almost immediately. Additionally patient is febrile to 103. I suspect this is respiratory infection. Rocephin and azithromycin have already been ordered. 1 L LR has been ordered. I have held off on the 30 cc/kg bolus given the fact that he has a document LV dysfunction even though I do not see any significant obvious dysfunction on his bedside echo. Limited heart and lung ultrasounds were otherwise unremarkable. Will see how he responds and if his MAP is above 65 regarding further fluid resuscitation. Patient is critically ill at the moment has a guarded disposition. <Nelia Shaffer, DO - Last Filed: 08/11/24 16:53> Raji Inquiry Pt receiving controlled substance: No Vital Signs: 08/11/24 14:34 08/11/24 14:44 08/11/24 14:45 Temperature 103.3 F H Temperature Source Oral Pulse Rate 102 H Pulse Rate [Right Radial] 107 H Respiratory Rate 27 H 32 H Blood Pressure 109/74 L Blood Pressure [Right Arm] 169/84 H Blood Pressure Mean 85 Blood Pressure Mean [Right Arm] 112 02 Sat by Pulse Oximetry 66 L 100 Oxygen Delivery Method Nasal Cannula BiPAP Oxygen Flow Rate (LPM) 2 Fraction of Inspired Oxygen 40 08/11/24 15:00 08/11/24 15:30 08/11/24 15:56 Temperature Temperature Source Pulse Rate 98 H 101 H 98 H Pulse Rate [Right Radial] Respiratory Rate 34 H 18 26 H Blood Pressure 107/63 L 86/53 L 101/56 L Blood Pressure [Right Arm] Blood Pressure Mean 77 64 67 Blood Pressure Mean [Right Arm] 02 Sat by Pulse Oximetry 100 100 100 Oxygen Delivery Method BiPAP BiPAP BiPAP Oxygen Flow Rate (LPM) Fraction of Inspired Oxygen 08/11/24 15:57 08/11/24 16:00 Temperature 98.2 F Temperature Source Pulse Rate 100 H 98 H Pulse Rate [Right Radial] Respiratory Rate 29 H 25 H Blood Pressure 101/58 L 95/54 L Blood Pressure [Right Arm] Blood Pressure Mean 60 Blood Pressure Mean [Right Arm] 02 Sat by Pulse Oximetry 100 Oxygen Delivery Method BiPAP BiPAP Oxygen Flow Rate (LPM) 40 Fraction of Inspired Oxygen Lab Data Lab Results 08/11/24 14:29: VBG pH 7.34, VBG pCO2 59.6 H, VBG pO2 53.2 H, VBG HCO3 31.1 H, VBG Total CO2 32.9 H, VBG O2 Saturation 82.5 H, VBG Base Excess 5.2 H, VBG Lactic Acid 2.2 H 08/11/24 14:30: WBC 7.9, RBC 4.64, Hgb 12.1 L, Hct 39.4 L, MCV 84.9, MCH 26.1 L, MCHC 30.7 L, RDW 14.5, Plt Count 180, MPV 10.2, Neut % (Auto) 66.4, Lymph % (Auto) 24.3, [place] % (Auto) 8.9, Eos % (Auto) 0.0 L, Baso % (Auto) 0.1, Neut # (Auto) 5.2, Lymph # (Auto) 1.9, [place] # (Auto) 0.7, Eos # (Auto) 0.0, Baso # (Auto) 0.0, D-Dimer 0.53 H, Total Creatine Kinase 238 H, Troponin I 0.02, NT-Pro-B Natriuret Pep 228, SARS-CoV-2 (PCR) Not detected, Influenza A Untype (PCR) Detected A, Influenza Type B (PCR) Not detected 08/11/24 14:40: Sodium 140, Potassium 3.8, Chloride 98, Carbon Dioxide 49 H*, Anion Gap -3.2 L, BUN 19, Creatinine 1.70 H, Estimated Creat Clear 36, Estimated GFR 39 L, Est GFR ( Amer) 48 L, Glucose 113 H, Calcium 8.1 L, Total Bilirubin 0.6, AST 37, ALT 23, Alkaline Phosphatase 84, Total Protein 6.5, Albumin 3.8, Globulin 2.7, Albumin/Globulin Ratio 1.4 08/11/24 14:47: Urine Color Yellow, Urine Appearance Clear, Urine pH 6.5, Ur Specific [place] 1.010, Urine Protein Negative, Urine Glucose (UA) >=1000, Urine Ketones Negative, Urine Blood Trace-i, Urine Nitrate Negative, Urine Bilirubin Negative, Urine Urobilinogen 0.2, Ur Leukocyte Esterase Negative, Urine RBC Occasional, Urine WBC Occasional, Ur Squamous Epith Cells Occasional, Urine Bacteria None Orders (Tests/Meds): ED MEDICATIONS Generic Name Dose Route Start Last Admin Trade Name Freq PRN Reason Stop Dose Admin Acetaminophen 650 mg 08/11/24 15:44 Acetaminophen 325mg Tab PO 09/10/24 15:43 Q6HP PRN Fever or Mild Pain (1-3) Albuterol/Ipratropium 3 ml 08/11/24 15:46 Ipratropium/Albuterol 3 Ml [facility] 09/10/24 15:45 Q2HP PRN Wheezing Ibuprofen 600 mg 08/11/24 15:44 Ibuprofen 600 Mg Tablet PO 09/10/24 15:43 Q6HP PRN Fever or Mild Pain (1-3) Discontinued Medications Generic Name Dose Route Start Last Admin Trade Name Freq PRN Reason Stop Dose Admin Acetaminophen 1,000 mg 08/11/24 14:45 08/11/24 14:50 Acetaminophen 1,000mg/100ml Vial IV 08/11/24 14:46 1,000 mg ONCE ONE Administration Albuterol Sulfate 20 mg 08/11/24 14:54 08/11/24 14:55 Albuterol 0.083% 2.5 Mg/3 Ml [facility] 08/11/24 14:55 20 mg ONCE ONE Administration Albuterol/Ipratropium 3 ml 08/11/24 14:28 08/11/24 14:37 Ipratropium/Albuterol 3 Ml [facility] 08/11/24 14:29 3 ml ONCE ONE Administration Lactated Ringer's 1,000 mls @ 999 mls/hr 08/11/24 14:30 08/11/24 14:39 Lactated Ringer's 1000 Ml Bag IV 08/11/24 15:30 999 mls/hr .Q1H1M MATI Administration Magnesium Sulfate 2 gm in 50 mls @ 50 mls/hr 08/11/24 14:28 08/11/24 14:38 Magnesium Sulfate 2gm/50ml Premix IV 08/11/24 15:27 50 mls/hr ONCE ONE Administration Ceftriaxone Sodium 1 gm/ 50 mls @ 100 mls/hr 08/11/24 14:37 08/11/24 14:48 Sodium Chloride IV 08/11/24 15:06 100 mls/hr ONCE ONE Administration Azithromycin 500 mg/ Sodium 250 mls @ 250 mls/hr 08/11/24 14:37 08/11/24 14:58 Chloride IV 08/11/24 14:38 250 mls/hr ONCE ONE Administration ORDERS Category Date Time Status CXR --portable [XR chest portable] Stat Exams 08/11/24 14:29 Completed POCUS Point of Care (ER Only) Stat Exams 08/11/24 14:28 Completed BNP [NT Pro Brain Natriuretic Pep.] Stat Lab 08/11/24 14:30 Completed CBC w/Auto Diff [Complete Blood Count Auto Diff] Stat Lab 08/11/24 14:30 Completed CK [Creatine Kinase] Stat Lab 08/11/24 14:30 Completed CMP [Comprehensive Metabolic Panel] Stat Lab 08/11/24 14:40 Completed D-Dimer Stat Lab 08/11/24 14:30 Completed Lactate Venous Stat Lab 08/11/24 14:28 Ordered Rapid PCR Covid and Flu A/B Stat Lab 08/11/24 14:30 Completed Trop I [Troponin I] Stat Lab 08/11/24 14:30 Completed Troponin I Q3H Lab 08/11/24 17:30 Ordered Troponin I Q3H Lab 08/11/24 20:30 Ordered UA [Urinalysis and Microscopic] Stat Lab 08/11/24 14:47 Completed Blood Culture Stat Micro 08/11/24 14:40 Received Venous Blood Gas Stat RT 08/11/24 14:29 Completed Medical Decision Narrative: 74-year-old presenting today with acute hypoxic respiratory failure and severe respiratory distress and increased work of breathing. He has been placed on BiPAP with continuous breathing treatments and magnesium. Steroids have already been given prehospital. I did discuss with the patient and the family member that he is close to needing to be intubated and they are both agreeable to that if he gets to that point. Respiratory at the bedside almost immediately. Additionally patient is febrile to 103. I suspect this is respiratory infection. Rocephin and azithromycin have already been ordered. 1 L LR has been ordered. I have held off on the 30 cc/kg bolus given the fact that he has a document LV dysfunction even though I do not see any significant obvious dysfunction on his bedside echo. Limited heart and lung ultrasounds were otherwise unremarkable. Will see how he responds and if his MAP is above 65 regarding further fluid resuscitation. Patient is critically ill at the moment has a guarded disposition. DO Edmund: I assumed care of the patient at 1500 at time of departure of the previous provider. On my assessment, he states he is feeling a lot better on BiPAP with continuous neb ongoing. He is doing much better after DuoNebs, IV magnesium, IV steroids, and IV antibiotics covering for community-acquired pneumonia. he pressures are soft, but his MAP is greater than 65 without any sort of pressors. CBC is reassuring with no significant leukocytosis or anemia. VBG demonstrates chronic respiratory acidosis that is compensated. Lactic acid is mildly elevated. Chemistry demonstrates elevated carbon dioxide in the setting of chronic CO2 retention. He also has mild OANH with creatinine of 1.7. Troponin negative, BNP not significantly elevated. CK is mildly elevated. He is positive for influenza A, which I feel is likely the source of his COPD exacerbation and respiratory distress. I independently interpreted chest x-ray prior to radiology read and noted no large focal consolidation concerning for pneumonia. Ultimately given the patient's respiratory failure, COPD exacerbation, influenza A I feel he would benefit from admission for continued monitoring. I had an interactive discussion with Dr. Carey who admitted the patient to the stepdown unit. Procedures <Jose Sung MD - Last Filed: 08/11/24 14:46> Miscellaneous Procedure Procedure Performed: Limited cardiac ultrasound Indication: Dyspnea Identified structures: The heart was visualized in the parasternal long axis, parastenal short axis, apical four chamber and subxyphiod views. The IVC was visualized in the short axis and long axis at its entry into the right atrium. Findings: LVEF is unremarkable without moderate or severe depression no severe right heart strain no pericardial effusion Impression: Unremarkable limited ultrasound of the heart Images were saved to permanent archive The study was technically adequate CPT: 05208-70 This study was performed by mo, and I personally interpreted all images/videos. Based on my clinical judgement, these images were adequate and did not necessitate further imaging. Limited lung ultrasound A focused ultrasound exam of the pleural spaces was performed to evaluate for pneumothorax, pulmonary edema, pleural effusion and/or consolidation. The ultrasound was performed with the following indications, as noted in the H&P: Dyspnea Identified structures: Right and thoracic cavities were examined. Findings: Lung sliding present throughout no obvious consolidation or significant B-lines] Impression: Unremarkable bilateral lung exams Images were saved to permanent archive The study was technically adequate CPT 97185-24 This study was performed by me, and I personally interpreted all images/videos. Based on my clinical judgement, these images were adequate and did not necessitate further imaging. Critical Care <Nelia Shaffer, DO - Last Filed: 08/11/24 16:53> Critical Care Time Critical Care Time: Yes Attestation: On 08/11/24, the high probability of a clinically significant, sudden or life threatening deterioration of the following system(s) required my full and direct attention, intervention and personal management. The time I documented below is in addition to time spent performing reported procedures but includes the following listed in this critical care notation. Total Time Total Critical Care Time: 35
[2024-08-11 14:46] LABS: Creatine Kinase 238 U/L (55-170)
[2024-08-11] MEDS: CEFTRIAXONE SODIUM 1 GM in 0.9 % SODIUM CHLORIDE 50 ML IV (14:48)
--- NOTE | 2024-08-11 14:48 | HMH.PHAINT1 ---
Pharmacy Intervention Comments: MEDICATION RECONCILIATION COMPLETED ON PATIENT USING EXTERNAL FILL HISTORY FROM PHARMACY AND LIST FROM CARDIOLOGY OFFICE. -MIKE NASSAR, SHAKIRD
[2024-08-11] MEDS: ACETAMINOPHEN 1,000MG/100ML VIAL 1000 MG IV (14:50)
[2024-08-11 14:54] LABS: Microscopic, Urine URINE MICROSCOPIC (MICROSCOPIC)
[2024-08-11 14:55] LABS: VBG Base Excess 5.2 mmol/L (-2.4-2.3); VBG HCO3 31.1 mmol/L (23-30); VBG Oxygen Saturation 82.5 % (50-70); VBG PCO2 59.6 mmol/L (35-51); VBG PH 7.34 mmol/L (7.31-7.41); VBG PO2 53.2 mmol/L (28-40); VBG Total CO2 32.9 mmol/L (23-27)
[2024-08-11] MEDS: ALBUTEROL 0.083% 2.5 MG/3 ML NEB 20 MG IH (14:55)
[2024-08-11 14:57] LABS: NT Pro Brain Natriuretic Pep. 228 pg/mL (0-450)
[2024-08-11 14:57] LABS: Appearance,Urine CLEAR (Clear); Bilirubin,Urine Negative (Negative); Blood, Urine TRACE-I (Negative); Color,Urine YELLOW (Yellow); Glucose,Urine (UA) >=1000 (Negative); Ketones,Urine Negative (Negative); Leukocyte Esterase,Urine Negative (Negative); Nitrate,Urine Negative (Negative); PH,Urine 6.5 (5.0-8.5); Protein,Urine Negative (Negative); Urobilinogen,Urine 0.2 EU/dl (0.2)
[2024-08-11 14:57] LABS: Lactate Venous 2.2 mmol/L (0.4-2.0)
[2024-08-11] MEDS: AZITHROMYCIN 500 MG in 0.9 % SODIUM CHLORIDE 250 ML 250 MG IV (14:58)
[2024-08-11 14:59] LABS: Troponin I 0.02 ng/ml (0.00-0.034)
[2024-08-11 15:03] LABS: D-Dimer 0.53 ug/mL (0.0-0.5)
[2024-08-11 15:04] LABS: Influenza A, PCR Detected (NotDetected)
[2024-08-11 15:15] LABS: RBC,Urine Occasional #/hpf (0-3); Squamous Epithelial Cell,Urine Occasional #/hpf (0-5); WBC,Urine Occasional #/hpf (0-3)
[2024-08-11 15:20] LABS: Albumin Level 3.8 g/dl (3.5-5.0); Chloride 98 mmol/L (98-107); Potassium 3.8 mmoL/L (3.5-5.1); Sodium 140 mmol/L (136-145)
[2024-08-11 15:22] LABS: Blood Urea Nitrogen 19 mg/dl (9-20); Creatinine Clearance Estimated 36 mL/min (50-200); Estimated Glomerular Filt Rate 39 ml/min (>60); GFR (African American) 48 ML/MIN (>60)
[2024-08-11 15:23] LABS: Alanine Aminotransferase 23 U/L (12-78); Albumin/Globulin Ratio 1.4 (1.1-1.8); Alkaline Phosphatase 84 U/L (38-126); Aspartate Amino Transferase 37 U/L (17-59); Bilirubin,Total 0.6 mg/dl (0.2-1.3); Calcium 8.1 mg/dl (8.4-10.2); Globulin 2.7 g/dL (1.3-3.2); Glucose 113 mg/dl (74-100); Total Protein,Serum 6.5 g/dl (6.3-8.2)
[2024-08-11 15:39] LABS: Anion Gap -3.2 mEq/L (5-15); Carbon Dioxide 49 mmol/L (22.0-30.0)
--- NOTE | 2024-08-11 15:41 | PC.NURSE ---
DR JOHN KWAN
--- NOTE | 2024-08-11 15:43 | PC.NURSE ---
DR BENNETT SPEAKING WITH DR LOPEZ
[2024-08-11 18:18] LABS: Troponin I 0.06 ng/ml (0.00-0.034)
--- NOTE | 2024-08-11 18:19 | P.HP_ITS ---
History of Present Illness *Admission Date: 08/11/24 *Reason for visit:: SOA *History of present illness: Patient is a 74-year-old presenting to the ER today with severe respiratory distress and hypoxic respiratory failure. Wears 2 L nasal cannula at home. COPD, followed by Dr. Carey, [facility], and Dr. Haines, pulmonary. Was found to be in respiratory distress by his who called EMS today. He was satting 66% on his 2 L. He was placed on a nonrebreather with improvement in his oxygen saturation. He was given Solu-Medrol and DuoNebs and route. He was dyspneic and unable to speak in more than 1 word sentences and is in respiratory distress. In the ER he tested positive for Influenza A. CXR did not show focal infiltration or consolidation. He has known coronary disease and LV dysfunction. He is [facility] by [facility]. With treatment in ER and after being placed on BiPap his Sats improved. He is admitted to Stepdown. He received antibiotics in ER. WBC was not elevated. He pH was 7.34 on VBG. [facility] Disclaimer: The information contained in this section may have been updated after the patient was seen, as this information can be updated by other users. Medical History Dependence on continuous supplemental oxygen LV dysfunction Hyperlipidemia CAD (coronary artery disease) Abnormal nuclear cardiac imaging test History of echocardiogram Multiple lung nodules on CT Benign prostatic hyperplasia PVCs (premature ventricular contractions) Hypertension Encounter for pre-operative cardiovascular clearance Screening for lung cancer Multiple pulmonary nodules COPD (chronic obstructive pulmonary disease) Pulmonary emphysema Stopped smoking with greater than 30 pack year history Dyspnea on exertion SOB (shortness of breath) Sinus tachycardia Surgical History Stented coronary artery History of inguinal hernia repair History of colonoscopy History of cardiac cath Family History Other Diabetes Heart attack Hypertension Social History (Updated 08/11/24 @ 16:51 by Cindy Perez RN) Smoking Status: Former smoker tobacco type: cigarettes alcohol intake: former substance use type: denies use current occupational status: retired Travel in the last 8 weeks: None household members: spouse and children housing: house Have you lived/traveled outside US in past 30 days?: No Contact w/someone who lives/traveled outside US past 30 days?: No Exposure to someone with infectious disease in past 14 days?: No Do you have a fever (greater than 100.4 F or 38 C)?: No Have you tested positive for COVID-19: No Exposed to someone with COVID-19 in past 14 days?: No Do you have a sore throat?: No Do you have a cough?: Yes Do you have any weakness?: Yes Are you experiencing any nausea/vomitting?: No Do you have any diarrhea?: No Are you experiencing any unusual bleeding?: No Do you have any muscle aches/pain?: No Do you have any abdominal pain?: No Are you experiencing loss of taste or smell?: No Other Medical History Have you received the Flu Vaccine for this season: No Have you received the Pneumonia Vaccine: No Meds Home Medications and Allergies Home Medications ?Medication ?Instructions ?Recorded ?Confirmed ?Type potassium chloride 10 mEq 10 meq PO DAILY 10/11/17 08/11/24 History capsule,extended release tamsulosin 0.4 mg capsule 0.4 mg PO DAILY 07/28/22 08/11/24 History aspirin 81 mg chewable tablet 81 mg PO DAILY #30 tabs 06/08/24 08/11/24 Rx (Aspirin [facility]) atorvastatin 40 mg tablet (Lipitor) 40 mg PO HS #30 tabs 06/08/24 08/11/24 Rx clopidogrel 75 mg tablet (Plavix) 75 mg PO DAILY #30 tabs 06/08/24 08/11/24 Rx sacubitril 24 mg-valsartan 26 mg 1 tab PO BID #180 tabs 06/14/24 08/11/24 Rx tablet (Entresto) bumetanide 1 mg tablet 1 mg PO DAILY #30 tabs 07/19/24 08/11/24 Rx empagliflozin 10 mg tablet 10 mg PO DAILY #30 tabs 07/19/24 08/11/24 Rx (Jardiance) spironolactone 50 mg tablet 50 mg PO DAILY #30 tabs 07/19/24 08/11/24 Rx bisoprolol fumarate 10 mg tablet 10 mg PO DAILY 08/11/24 08/11/24 History New Prescriptions to Start Prescriptions: Allergies Allergy/AdvReac Type Severity Reaction Status Date / Time No Known Allergies Allergy Verified 07/19/24 15:04 Exam Data for Last 24 hours Vital signs and Labs for Last 24 Hours: Temp Pulse Resp BP Pulse Ox O2 Del Method O2 Flow Rate 98.2 F 94 H 18 110/51 L 98 Nasal Cannula 3 08/11/24 15:57 08/11/24 16:30 08/11/24 16:30 08/11/24 16:30 08/11/24 16:30 08/11/24 17:00 08/11/24 17:00 FiO2 40 08/11/24 14:45 Laboratory Results - last 24 hr 08/11/24 14:29: VBG pH 7.34, VBG pCO2 59.6 H, VBG pO2 53.2 H, VBG HCO3 31.1 H, VBG Total CO2 32.9 H, VBG O2 Saturation 82.5 H, VBG Base Excess 5.2 H, VBG Lactic Acid 2.2 H 08/11/24 14:30: WBC 7.9, RBC 4.64, Hgb 12.1 L, Hct 39.4 L, MCV 84.9, MCH 26.1 L, MCHC 30.7 L, RDW 14.5, Plt Count 180, MPV 10.2, Neut % (Auto) 66.4, Lymph % (Auto) 24.3, [place] % (Auto) 8.9, Eos % (Auto) 0.0 L, Baso % (Auto) 0.1, Neut # (Auto) 5.2, Lymph # (Auto) 1.9, [place] # (Auto) 0.7, Eos # (Auto) 0.0, Baso # (Auto) 0.0, D-Dimer 0.53 H, Total Creatine Kinase 238 H, Troponin I 0.02, NT-Pro-B Natriuret Pep 228, SARS-CoV-2 (PCR) Not detected, Influenza A Untype (PCR) Detected A, Influenza Type B (PCR) Not detected 08/11/24 14:40: Sodium 140, Potassium 3.8, Chloride 98, Carbon Dioxide 49 H*, Anion Gap -3.2 L, BUN 19, Creatinine 1.70 H, Estimated Creat Clear 36, Estimated GFR 39 L, Est GFR ( Amer) 48 L, Glucose 113 H, Calcium 8.1 L, Total Bilirubin 0.6, AST 37, ALT 23, Alkaline Phosphatase 84, Total Protein 6.5, Albumin 3.8, Globulin 2.7, Albumin/Globulin Ratio 1.4 08/11/24 14:47: Urine Color Yellow, Urine Appearance Clear, Urine pH 6.5, Ur Specific [place] 1.010, Urine Protein Negative, Urine Glucose (UA) >=1000, Urine Ketones Negative, Urine Blood Trace-i, Urine Nitrate Negative, Urine Bilirubin Negative, Urine Urobilinogen 0.2, Ur Leukocyte Esterase Negative, Urine RBC Occasional, Urine WBC Occasional, Ur Squamous Epith Cells Occasional, Urine Bacteria None 08/11/24 17:45: Troponin I 0.06 H I & O for Last 24 hours: Intake & Output 08/09/24 08/10/24 08/11/24 08/12/24 11:59 11:59 11:59 11:59 Intake Total 480 / 480 Output Total 225 / 225 Balance 255 / 255 Weight 135 lb 11.2 oz Constitutional Constitutional: mild distress (states he is much better since admission.) *Routine HEENT Exam Head: Present normocephalic Eye: Present PERRL ENT: Present mucous membranes moist *Routine Neck Exam Neck: Present full ROM; Absent JVD Routine Chest/Breast/Axilla Exam Chest wall: Absent tenderness *Routine Respiratory Exam Respiratory: Present decreased breath sounds, rales (Bibasilar fibrotic rales) and able to speak in complete sentences; Absent stridor (Nasal O2 at [address]) *Routine Cardiovascular Exam Cardiovascular: Present other (Regular rhythm with ectopics) *Routine Abdominal Exam Abdominal: Present soft; Absent tenderness *Routine Rectal Exam Rectal:: deferred *Routine Genitalia Exam Genitalia:: deferred *Routine Extremities Exam Extremities: Present edema (Minimal. Low weight noted) Routine Back/Spine/Pelvis Exam Back/Spine: Present kyphosis *Routine Skin Exam Skin: Present intact *Routine Neurological Exam Neurological: Present alert and oriented X3 Routine Psychiatric Exam Psychiatric: Present normal affect and normal thought process Assessment and Plan *Assessment and plan (1) Influenza A: Status: Acute Category: Medical Code(s): J10.1 - Influenza due to other identified influenza virus with other respiratory manifestations (2) Acute hypoxemic respiratory failure: Status: Acute Category: Medical Code(s): J96.01 - Acute respiratory failure with hypoxia (3) Acute exacerbation of chronic obstructive pulmonary disease: Status: Acute Category: Medical Code(s): J44.1 - Chronic obstructive pulmonary disease with (acute) exacerbation (4) Sepsis: Status: Acute Category: Medical Code(s): A41.9 - Sepsis, unspecified organism (5) Anemia: Status: Acute Category: Medical Code(s): D64.9 - Anemia, unspecified (6) Dependence on continuous supplemental oxygen: Status: Acute Category: Medical Code(s): Z99.81 - Dependence on supplemental oxygen (7) Stented coronary artery: Status: Acute Category: Surgical Code(s): Z95.5 - Presence of coronary angioplasty implant and graft (8) CAD (coronary artery disease): Status: Acute Qualifiers: Coronary Disease-Associated Artery/Lesion type: [place] artery [place] vs. transplanted heart: [place] heart Associated angina: without angina Qualified Code(s): I25.10 - Atherosclerotic heart disease of [place] coronary artery without angina pectoris Category: Medical Code(s): I25.10 - Atherosclerotic heart disease of [place] coronary artery without angina pectoris (9) PVCs (premature ventricular contractions): Status: Acute Category: Medical Code(s): I49.3 - Ventricular premature depolarization (10) Hypertension: Status: Acute Qualifiers: Hypertension type: unspecified Qualified Code(s): I10 - Essential (primary) hypertension Category: Medical Code(s): I10 - Essential (primary) hypertension (11) Pulmonary emphysema: Status: Chronic Category: Medical Code(s): J43.9 - Emphysema, unspecified Plan See orders. Continue antibiotics for now. Tamsulosin 75 mg p.o. twice daily.
[2024-08-11] MEDS: SODIUM CHLORIDE 0.45 % 1,000 ML 75 ML IV (18:49)
[2024-08-11 18:57] LABS: Reflex Lactic Add Lactic Reflex
[2024-08-11 19:25] LABS: Lactic Acid Follow Up (RFLX 1) 3.2 mmol/L (0.7-2.1)
[2024-08-11] MEDS: OSELTAMIVIR 75MG CAPSULE 75 MG PO (20:46)
[2024-08-11] MEDS: TAMSULOSIN 0.4MG CAPSULE 0.4 MG PO (20:46)
[2024-08-11] MEDS: SACUBITRIL/VALSARTAN 24-26MG TABLET 1 EACH PO (20:46)
[2024-08-11 21:08] LABS: Reflex Lactic (2 hrs) Add Lactic Reflex
[2024-08-11 21:19] LABS: Troponin I 0.07 ng/ml (0.00-0.034)
[2024-08-11 22:49] LABS: Lactic Acid Follow up (RFLX 2) 2.1 mmol/L (0.7-2.1)
[2024-08-12] VITALS (15 sets, daily range): BP systolic 90–136; BP diastolic 52–64; PULSE 47–80; RESP 16–24; TEMP 36.4–36.8; O2SAT 95–100
[2024-08-12] MEDS: OSELTAMIVIR PHOSPHATE 6MG/ML ORAL SUSP 60ML 30 MG PO ×2 (08:34→21:00)
[2024-08-12] MEDS: SODIUM CHLORIDE 0.45 % 1,000 ML 75 ML IV ×2 (08:35→21:00)
[2024-08-12] MEDS: predniSONE 20MG TAB 40 MG PO (09:46)
--- NOTE | 2024-08-12 11:11 | P.PN_ITS ---
Subjective *Date: 08/12/24 *Time: 11:11 Interval history: He feels much better. Breathing better. Good Sats on nasal O2. Medical Exam Vital signs and Labs for Last 24 Hours: Vital Signs Temp Pulse Pulse Resp BP BP Pulse Ox 08/12/24 10:48 08/12/24 09:01 08/12/24 08:15 08/12/24 08:00 98.1 F 48 L 24 115/54 L 98 08/12/24 08:00 64 08/12/24 06:52 08/12/24 06:00 93/55 L 08/12/24 06:00 57 L 16 100 08/12/24 05:01 107/52 L 08/12/24 05:01 55 L 18 99 08/12/24 05:00 08/12/24 05:00 51 L 23 93/55 L 99 08/12/24 04:00 90/52 L 08/12/24 04:00 59 L 100 08/12/24 04:00 60 08/12/24 03:00 103/53 L 08/12/24 03:00 54 L 19 90/52 L 99 08/12/24 02:56 08/12/24 02:01 93/53 L 08/12/24 02:01 50 L 99 08/12/24 02:00 57 L 95 08/12/24 02:00 47 L 99 08/12/24 01:00 08/12/24 01:00 111/58 L 08/12/24 01:00 69 95/53 L 96 08/12/24 00:31 60 08/12/24 00:00 97.5 F L 60 19 91/57 L 99 08/12/24 00:00 59 L 98 08/11/24 23:00 69 98 08/11/24 23:00 97.5 F L 60 18 97/51 L 99 08/11/24 23:00 08/11/24 22:00 56 L 100/51 L 98 08/11/24 21:00 08/11/24 20:00 80 08/11/24 20:00 77 99 08/11/24 20:00 99/53 L 08/11/24 20:00 72 20 96 08/11/24 19:00 25 H 08/11/24 19:00 98.0 F 71 18 101/54 L 97 08/11/24 18:51 08/11/24 18:01 84 20 98 08/11/24 18:01 96/52 L 08/11/24 17:00 08/11/24 16:40 08/11/24 16:30 94 H 18 110/51 L 98 08/11/24 16:28 98 H 08/11/24 16:00 98 H 25 H 95/54 L 100 08/11/24 15:57 98.2 F 100 H 29 H 101/58 L 08/11/24 15:56 98 H 26 H 101/56 L 100 08/11/24 15:30 101 H 18 86/53 L 100 08/11/24 15:00 98 H 34 H 107/63 L 100 08/11/24 14:45 08/11/24 14:44 102 H 32 H 109/74 L 100 08/11/24 14:34 103.3 F H 107 H 27 H 169/84 H 66 L O2 Del Method O2 Flow Rate FiO2 08/12/24 10:48 Nasal Cannula 2 08/12/24 09:01 Nasal Cannula 2 08/12/24 08:15 Nasal Cannula 2 08/12/24 08:00 Nasal Cannula 2 08/12/24 08:00 08/12/24 06:52 Nasal Cannula 3 08/12/24 06:00 08/12/24 06:00 08/12/24 05:01 08/12/24 05:01 08/12/24 05:00 Nasal Cannula 3 08/12/24 05:00 Nasal Cannula 3 08/12/24 04:00 08/12/24 04:00 08/12/24 04:00 08/12/24 03:00 08/12/24 03:00 Nasal Cannula 3 08/12/24 02:56 Nasal Cannula 3 08/12/24 02:01 08/12/24 02:01 08/12/24 02:00 Nasal Cannula 3 08/12/24 02:00 08/12/24 01:00 Nasal Cannula 3 08/12/24 01:00 08/12/24 01:00 Nasal Cannula 3 08/12/24 00:31 08/12/24 00:00 Nasal Cannula 3 08/12/24 00:00 08/11/24 23:00 08/11/24 23:00 Nasal Cannula 3 08/11/24 23:00 Nasal Cannula 3 08/11/24 22:00 Nasal Cannula 3 08/11/24 21:00 Nasal Cannula 3 08/11/24 20:00 08/11/24 20:00 Nasal Cannula 3 08/11/24 20:00 08/11/24 20:00 08/11/24 19:00 08/11/24 19:00 Nasal Cannula 3 08/11/24 18:51 Nasal Cannula 3 08/11/24 18:01 Nasal Cannula 3 08/11/24 18:01 08/11/24 17:00 Nasal Cannula 3 08/11/24 16:40 Nasal Cannula 3 08/11/24 16:30 Nasal Cannula 3 08/11/24 16:28 08/11/24 16:00 BiPAP 08/11/24 15:57 BiPAP 40 08/11/24 15:56 BiPAP 08/11/24 15:30 BiPAP 08/11/24 15:00 BiPAP 08/11/24 14:45 40 08/11/24 14:44 BiPAP 08/11/24 14:34 Nasal Cannula 2 Intake and Output 08/11/24 08/12/24 08/12/24 19:59 03:59 11:59 Intake Total 480 / 2033 1553 / 2033 Output Total 225 / 1050 550 / 1050 275 / 1050 Balance 255 / 983 -550 / 983 1278 / 983 Intake: Intake, Oral Amount 480 / 1030 550 / 1030 Intake, Total IV Amount 1003 / 1003 Sodium Chloride 0.45 % 1,000 ml 1003 / 1003 @ 75 mls/hr IV .[id number] [facility] Rx #:[id number] Output: Output, Urine Amount 225 / 1050 550 / 1050 275 / 1050 Other: Number of Unmeasured Voids 1 Number of Bowel Movements 1 Weight 135 lb 11.2 oz 134 lb 14.4 oz Patient Weight 08/12/24 11:59 Weight 134 lb 14.4 oz Laboratory Results - last 24 hr 08/11/24 14:29: VBG pH 7.34, VBG pCO2 59.6 H, VBG pO2 53.2 H, VBG HCO3 31.1 H, VBG Total CO2 32.9 H, VBG O2 Saturation 82.5 H, VBG Base Excess 5.2 H, VBG Lactic Acid 2.2 H 08/11/24 14:30: WBC 7.9, RBC 4.64, Hgb 12.1 L, Hct 39.4 L, MCV 84.9, MCH 26.1 L, MCHC 30.7 L, RDW 14.5, Plt Count 180, MPV 10.2, Neut % (Auto) 66.4, Lymph % (Auto) 24.3, [place] % (Auto) 8.9, Eos % (Auto) 0.0 L, Baso % (Auto) 0.1, Neut # (Auto) 5.2, Lymph # (Auto) 1.9, [place] # (Auto) 0.7, Eos # (Auto) 0.0, Baso # (Auto) 0.0, D-Dimer 0.53 H, Total Creatine Kinase 238 H, Troponin I 0.02, NT-Pro-B Natriuret Pep 228, SARS-CoV-2 (PCR) Not detected, Influenza A Untype (PCR) Detected A, Influenza Type B (PCR) Not detected 08/11/24 14:40: Sodium 140, Potassium 3.8, Chloride 98, Carbon Dioxide 49 H*, Anion Gap -3.2 L, BUN 19, Creatinine 1.70 H, Estimated Creat Clear 36, Estimated GFR 39 L, Est GFR ( Amer) 48 L, Glucose 113 H, Calcium 8.1 L, Total Bilirubin 0.6, AST 37, ALT 23, Alkaline Phosphatase 84, Total Protein 6.5, Albumin 3.8, Globulin 2.7, Albumin/Globulin Ratio 1.4 08/11/24 14:47: Urine Color Yellow, Urine Appearance Clear, Urine pH 6.5, Ur Specific [place] 1.010, Urine Protein Negative, Urine Glucose (UA) >=1000, Urine Ketones Negative, Urine Blood Trace-i, Urine Nitrate Negative, Urine Bilirubin Negative, Urine Urobilinogen 0.2, Ur Leukocyte Esterase Negative, Urine RBC Occasional, Urine WBC Occasional, Ur Squamous Epith Cells Occasional, Urine Bacteria None 08/11/24 17:45: Troponin I 0.06 H 08/11/24 19:05: Lactate 3.2 H 08/11/24 20:36: Troponin I 0.07 H 08/11/24 22:29: Lactate 2.1 I & O for Labs for Last 24 Hours: Intake & Output 08/09/24 08/10/24 08/11/24 08/12/24 11:59 11:59 11:59 11:59 Intake Total 2032 Output Total 1050 / 1050 Balance 983 / 983 Weight 134 lb 14.4 oz Head: Present normocephalic ENT: Present normal exam Neck: Present normal inspection Respiratory: Present decreased breath sounds and wheezes Cardiac: Present Reg Rate and Rhythm (with ectopics) GI: Present soft; Absent tenderness Rectal (male): Present deferred (male): Present deferred Extremities: Absent edema Skin: Present intact Neuro: Present alert and oriented x 3 Assessment and Plan *Assessment and plan (1) Influenza A: Status: Acute Category: Medical Code(s): J10.1 - Influenza due to other identified influenza virus with other respiratory manifestations (2) Acute hypoxemic respiratory failure: Status: Acute Category: Medical Code(s): J96.01 - Acute respiratory failure with hypoxia (3) Acute exacerbation of chronic obstructive pulmonary disease: Status: Acute Category: Medical Code(s): J44.1 - Chronic obstructive pulmonary disease with (acute) exacerbation (4) Dependence on continuous supplemental oxygen: Status: Acute Category: Medical Code(s): Z99.81 - Dependence on supplemental oxygen (5) CAD (coronary artery disease): Status: Acute Qualifiers: Coronary Disease-Associated Artery/Lesion type: [place] artery [place] vs. transplanted heart: [place] heart Associated angina: without angina Qualified Code(s): I25.10 - Atherosclerotic heart disease of [place] coronary artery without angina pectoris Category: Medical Code(s): I25.10 - Atherosclerotic heart disease of [place] coronary artery without angina pectoris (6) PVCs (premature ventricular contractions): Status: Acute Category: Medical Code(s): I49.3 - Ventricular premature depolarization Plan Add prednisone 40mg daily. May transfer to Med/surg floor.
[2024-08-12] MEDS: ASPIRIN 81MG CHEWABLE TABLET 81 MG PO (11:35)
[2024-08-12] MEDS: SACUBITRIL/VALSARTAN 24-26MG TABLET 1 EACH PO ×2 (11:35→22:11)
[2024-08-12] MEDS: SPIRONOLACTONE 25MG TABLET 25 MG PO (11:35)
[2024-08-12] MEDS: BISOPROLOL 5MG TABLET 5 MG PO (11:36)
[2024-08-12] MEDS: POTASSIUM CHLORIDE 10MEQ CAPSULE.ER 10 MEQ PO (11:36)
[2024-08-12] MEDS: CLOPIDOGREL 75MG TAB 75 MG PO (11:36)
[2024-08-12] MEDS: CEFTRIAXONE SODIUM 1 GM in 0.9 % SODIUM CHLORIDE 50 ML IV (14:23)
[2024-08-12] MEDS: AZITHROMYCIN 500 MG in 0.9 % SODIUM CHLORIDE 250 ML 250 MG IV (15:15)
[2024-08-12] MEDS: TAMSULOSIN 0.4MG CAPSULE 0.4 MG PO (22:12)
[2024-08-13] VITALS (10 sets, daily range): BP systolic 109–153; BP diastolic 52–92; PULSE 40–97; RESP 15–20; TEMP 36.4–37; O2SAT 93–100; BMI 20.3
--- NOTE | 2024-08-13 05:09 | PC.NURSE ---
V/s, ox4. Droplet precautions maintained for Flu +. No acute events to report. Plan of care ongoing.
--- NOTE | 2024-08-13 08:07 | EXP.ACUTE.PN ---
Subjective *Date: 08/13/24 *Time: 08:07 Interval history: Patient does not feel he is any better. He feels his respiratory status is about the same. He has a productive cough at times. He denies chest pain. O2 sats are at 100% on 2 L of nasal O2. He slept at intervals throughout the night. He eats about 50% of his diet. He is voiding QS. Bowels moved yesterday. He has ambulated out of bed in the room and has been sitting in the chair.. Medical Exam Vital signs and Labs for Last 24 Hours: Vital Signs Temp Pulse Pulse Resp BP Pulse Ox O2 Del Method 08/13/24 07:56 Nasal Cannula 08/13/24 07:36 Nasal Cannula 08/13/24 06:32 Nasal Cannula 08/13/24 04:55 Nasal Cannula 08/13/24 04:00 97.6 F 58 L 18 143/69 H 100 08/13/24 04:00 40 L 08/13/24 03:00 Nasal Cannula 08/13/24 01:00 Nasal Cannula 08/13/24 00:00 50 L 08/13/24 00:00 97.6 F 54 L 18 109/52 L 100 Nasal Cannula 08/12/24 23:00 Nasal Cannula 08/12/24 21:00 Nasal Cannula 08/12/24 20:00 Nasal Cannula 08/12/24 20:00 97.9 F 60 18 122/54 L 99 08/12/24 20:00 70 08/12/24 17:42 Nasal Cannula 08/12/24 16:00 80 08/12/24 16:00 98.0 F 64 18 130/64 100 Nasal Cannula 08/12/24 15:42 Nasal Cannula 08/12/24 14:35 Nasal Cannula 08/12/24 12:03 Nasal Cannula 08/12/24 12:00 60 08/12/24 11:59 98.2 F 62 18 136/53 L 99 Nasal Cannula 08/12/24 10:48 Nasal Cannula 08/12/24 09:01 Nasal Cannula 08/12/24 08:15 Nasal Cannula O2 Flow Rate 08/13/24 07:56 2 08/13/24 07:36 2 08/13/24 06:32 2 08/13/24 04:55 2 08/13/24 04:00 2 08/13/24 04:00 08/13/24 03:00 2 08/13/24 01:00 2 08/13/24 00:00 08/13/24 00:00 2 08/12/24 23:00 2 08/12/24 21:00 2 08/12/24 20:00 2 08/12/24 20:00 2 08/12/24 20:00 08/12/24 17:42 2 08/12/24 16:00 08/12/24 16:00 2 08/12/24 15:42 2 08/12/24 14:35 2 08/12/24 12:03 2 08/12/24 12:00 08/12/24 11:59 2 08/12/24 10:48 2 08/12/24 09:01 2 08/12/24 08:15 2 Intake and Output 08/12/24 08/13/24 08/13/24 19:59 03:59 11:59 Intake Total 930 / 930 120 / 1050 Output Total 600 / 600 1050 / 1650 Balance 330 / 330 -930 / -600 Intake: Intake, Oral Amount 630 / 630 120 / 750 Intake, Total IV Amount 300 / 300 Azithromycin 500 mg In 0.9 % 250 / 250 Sodium Chloride 250 ml @ 250 mls/hr IV Q24H [facility] Rx#:[id number] Ceftriaxone Sodium 1 gm In 0.9 50 / 50 % Sodium Chloride 50 ml @ 100 mls/hr IV Q24H [facility] Rx#:[id number] Output: Output, Urine Amount 600 / 600 1050 / 1650 Other: Number of Unmeasured Voids 0 Weight 137 lb 8 oz Patient Weight 08/13/24 11:59 Weight 137 lb 8 oz I & O for Labs for Last 24 Hours: Intake & Output 08/10/24 08/11/24 08/12/24 08/13/24 11:59 11:59 11:59 11:59 Intake Total 2033 / 2033 1050 / 1050 Output Total 1050 / 1050 1650 / 1650 Balance 983 / 983 -600 / -600 Weight 134 lb 14.4 oz 137 lb 8 oz Microbiology Reports for the Last 24 Hours: Microbiology 08/11/24 14:46 Blood Blood Culture - Preliminary NO GROWTH AFTER 24 HOURS 08/11/24 14:40 Blood Blood Culture - Preliminary NO GROWTH AFTER 24 HOURS Constitutional: Present no acute distress and thin Respiratory: Present rhonchi (Scattered throughout.), wheezes (Expiratory posteriorly) and crackles (Scattered throughout.) Cardiac: Present Reg Rate and Rhythm GI: Present soft and normal bowel sounds; Absent distention or guarding Extremities: Absent tenderness or edema Neuro: Present alert, awake and oriented x 3 Assessment and Plan *Assessment and plan (1) Influenza A: Status: Acute Category: Medical Code(s): J10.1 - Influenza due to other identified influenza virus with other respiratory manifestations (2) Acute hypoxemic respiratory failure: Status: Acute Category: Medical Code(s): J96.01 - Acute respiratory failure with hypoxia (3) Acute exacerbation of chronic obstructive pulmonary disease: Status: Acute Category: Medical Code(s): J44.1 - Chronic obstructive pulmonary disease with (acute) exacerbation (4) Dependence on continuous supplemental oxygen: Status: Acute Category: Medical Code(s): Z99.81 - Dependence on supplemental oxygen (5) CAD (coronary artery disease): Status: Acute Qualifiers: Coronary Disease-Associated Artery/Lesion type: [place] artery [place] vs. transplanted heart: [place] heart Associated angina: without angina Qualified Code(s): I25.10 - Atherosclerotic heart disease of [place] coronary artery without angina pectoris Category: Medical Code(s): I25.10 - Atherosclerotic heart disease of [place] coronary artery without angina pectoris (6) PVCs (premature ventricular contractions): Status: Acute Category: Medical Code(s): I49.3 - Ventricular premature depolarization Plan Schedule DuoNebs. Continue antibiotics and pulmonary care.
[2024-08-13] MEDS: BISOPROLOL 5MG TABLET 5 MG PO (08:48)
[2024-08-13] MEDS: POTASSIUM CHLORIDE 10MEQ CAPSULE.ER 10 MEQ PO (08:48)
[2024-08-13] MEDS: ASPIRIN 81MG CHEWABLE TABLET 81 MG PO (08:48)
[2024-08-13] MEDS: CLOPIDOGREL 75MG TAB 75 MG PO (08:48)
[2024-08-13] MEDS: SACUBITRIL/VALSARTAN 24-26MG TABLET 1 EACH PO ×2 (08:49→21:51)
[2024-08-13] MEDS: SPIRONOLACTONE 25MG TABLET 25 MG PO (08:49)
[2024-08-13] MEDS: predniSONE 20MG TAB 40 MG PO (08:49)
[2024-08-13] MEDS: OSELTAMIVIR PHOSPHATE 6MG/ML ORAL SUSP 60ML 30 MG PO ×2 (08:53→21:51)
[2024-08-13] MEDS: IPRATROPIUM/ALBUTEROL 3 ML NEB IH ×3 (09:47→19:03)
[2024-08-13] MEDS: CEFTRIAXONE SODIUM 1 GM in 0.9 % SODIUM CHLORIDE 50 ML IV (13:47)
[2024-08-13] MEDS: ALBUTEROL-HFA 90MCG/PUFF INHALER 8GM 2 PUFF IH (14:59)
[2024-08-13] MEDS: AZITHROMYCIN 500 MG in 0.9 % SODIUM CHLORIDE 250 ML 250 MG IV (14:59)
--- NOTE | 2024-08-13 15:45 | PC.NURSE ---
Report received from María Gordon RN. Patient denies needs at this time.
--- NOTE | 2024-08-13 18:13 | PC.NURSE ---
Patient alert and oriented. VSS. On 2L O2 via NC. Up with 1 to BR. Denies pain. Scheduled duoneb and prn albuterol mdi for dyspnea.
[2024-08-13] MEDS: TAMSULOSIN 0.4MG CAPSULE 0.4 MG PO (21:51)
[2024-08-14] VITALS (8 sets, daily range): BP systolic 138–145; BP diastolic 60–76; PULSE 50–90; RESP 17–18; TEMP 37.1; O2SAT 2–100; BMI 20.3
[2024-08-14] MEDS: ALBUTEROL-HFA 90MCG/PUFF INHALER 8GM 2 PUFF IH (02:05)
--- NOTE | 2024-08-14 05:19 | PC.NURSE ---
Flu + precautions maintained:Droplet. v/s, ox4, 2LNC. No acute events to report. Plan of care ongoing.
[2024-08-14] MEDS: IPRATROPIUM/ALBUTEROL 3 ML NEB IH ×2 (06:20→09:39)
--- NOTE | 2024-08-14 08:04 | P.PN_ITS ---
Subjective *Date: 08/14/24 *Time: 08:04 Interval history: Patient states he feels better and is ready to go home. Breathing is at baseline. He always has exertional shortness of breath. He denies chest pain. He is eating better. He has been out of bed without problems. Bowels moved y esterday. He is voiding QS. Medical Exam Vital signs and Labs for Last 24 Hours: Vital Signs Temp Pulse Pulse Resp BP Pulse Ox O2 Del Method 08/14/24 07:55 89 18 145/76 H 2 L Room Air 08/14/24 06:21 96 Nasal Cannula 08/14/24 06:20 75 08/14/24 06:20 70 08/14/24 06:02 Nasal Cannula 08/14/24 04:36 Nasal Cannula 08/14/24 04:00 60 08/14/24 03:48 98.7 F 62 17 138/60 100 Nasal Cannula 08/14/24 02:11 Nasal Cannula 08/14/24 00:42 Nasal Cannula 08/14/24 00:00 50 L 08/13/24 22:43 Nasal Cannula 08/13/24 21:00 Nasal Cannula 08/13/24 20:00 70 08/13/24 20:00 Nasal Cannula 08/13/24 20:00 98.2 F 72 15 153/92 H 100 Room Air 08/13/24 19:04 78 08/13/24 19:04 78 08/13/24 19:04 93 L Nasal Cannula 08/13/24 19:00 Room Air 08/13/24 17:15 Nasal Cannula 08/13/24 16:00 75 08/13/24 16:00 98.6 F 80 18 116/62 99 Nasal Cannula 08/13/24 15:02 Nasal Cannula 08/13/24 15:00 Nasal Cannula 08/13/24 13:12 89 08/13/24 13:12 97 H 08/13/24 12:39 Nasal Cannula 08/13/24 12:00 60 08/13/24 11:58 98.5 F 54 L 18 126/65 98 Nasal Cannula 08/13/24 11:00 Nasal Cannula 08/13/24 09:49 88 20 08/13/24 09:49 88 08/13/24 09:49 87 08/13/24 09:49 94 L Nasal Cannula O2 Flow Rate 08/14/24 07:55 08/14/24 06:21 2 08/14/24 06:20 08/14/24 06:20 08/14/24 06:02 2 08/14/24 04:36 2 08/14/24 04:00 08/14/24 03:48 2 08/14/24 02:11 2 08/14/24 00:42 2 08/14/24 00:00 08/13/24 22:43 2 08/13/24 21:00 2 08/13/24 20:00 08/13/24 20:00 2 08/13/24 20:00 08/13/24 19:04 08/13/24 19:04 08/13/24 19:04 2 08/13/24 19:00 08/13/24 17:15 2 08/13/24 16:00 08/13/24 16:00 2 08/13/24 15:02 2 08/13/24 15:00 2 08/13/24 13:12 08/13/24 13:12 08/13/24 12:39 2 08/13/24 12:00 08/13/24 11:58 2 08/13/24 11:00 2 08/13/24 09:49 08/13/24 09:49 08/13/24 09:49 08/13/24 09:49 2 Intake and Output 08/13/24 08/14/24 08/14/24 19:59 03:59 11:59 Intake Total 946 / 946 120 / 1066 Output Total 550 / 550 225 / 775 Balance 396 / 396 -105 / 291 Intake: Intake, Oral Amount 600 / 600 120 / 720 Intake, Total IV Amount 346 / 346 Sodium Chloride 0.45 % 1,000 ml 346 / 346 @ 75 mls/hr IV .[id number] [facility] Rx #:[id number] Output: Output, Urine Amount 550 / 550 225 / 775 Other: Number of Unmeasured Voids 0 Weight 137 lb 7.684 oz 137 lb 7.684 oz Patient Weight 08/14/24 11:59 Weight 137 lb 7.684 oz I & O for Labs for Last 24 Hours: Intake & Output 08/11/24 08/12/24 08/13/24 08/14/24 11:59 11:59 11:59 11:59 Intake Total 2033 / 2033 1530 / 1530 1066 / 1066 Output Total 1050 / 1050 1650 / 1650 775 / 775 Balance 983 / 983 -120 / -120 291 / 291 Weight 134 lb 14.4 oz 137 lb 8 oz 137 lb 7.684 oz Microbiology Reports for the Last 24 Hours: Microbiology 08/11/24 11:30 Sputum - Expectorated Sputum Gram Stain - Final 08/11/24 14:46 Blood Blood Culture - Preliminary NO GROWTH AFTER 48 HOURS 08/11/24 14:40 Blood Blood Culture - Preliminary NO GROWTH AFTER 48 HOURS Constitutional: Present no acute distress Comment:: Sitting on the side of the bed eating breakfast Respiratory: Present decreased breath sounds (Posteriorly. No wheezing noted) Cardiac: Present Reg Rate and Rhythm (Monitor shows sinus rhythm with PACs) GI: Present soft; Absent distention or tenderness Extremities: Present normal inspection and full ROM; Absent tenderness, edema or calf tenderness Neuro: Present alert, awake and oriented x 3 Assessment and Plan *Assessment and plan (1) Influenza A: Status: Acute Category: Medical Code(s): J10.1 - Influenza due to other identified influenza virus with other respiratory manifestations (2) Acute hypoxemic respiratory failure: Status: Acute Category: Medical Code(s): J96.01 - Acute respiratory failure with hypoxia (3) Acute exacerbation of chronic obstructive pulmonary disease: Status: Acute Category: Medical Code(s): J44.1 - Chronic obstructive pulmonary disease with (acute) exacerbation (4) Dependence on continuous supplemental oxygen: Status: Acute Category: Medical Code(s): Z99.81 - Dependence on supplemental oxygen (5) CAD (coronary artery disease): Status: Acute Qualifiers: Coronary Disease-Associated Artery/Lesion type: [place] artery [place] vs. transplanted heart: [place] heart Associated angina: without angina Qualified Code(s): I25.10 - Atherosclerotic heart disease of [place] coronary artery without angina pectoris Category: Medical Code(s): I25.10 - Atherosclerotic heart disease of [place] coronary artery without angina pectoris (6) PVCs (premature ventricular contractions): Status: Acute Category: Medical Code(s): I49.3 - Ventricular premature depolarization Plan Sputum culture results are pending. Continue current care and probably home today.
[2024-08-14] MEDS: predniSONE 20MG TAB 40 MG PO (08:41)
[2024-08-14] MEDS: ASPIRIN 81MG CHEWABLE TABLET 81 MG PO (08:41)
[2024-08-14] MEDS: SACUBITRIL/VALSARTAN 24-26MG TABLET 1 EACH PO (08:41)
[2024-08-14] MEDS: CLOPIDOGREL 75MG TAB 75 MG PO (08:41)
[2024-08-14] MEDS: SPIRONOLACTONE 25MG TABLET 25 MG PO (08:41)
[2024-08-14] MEDS: BISOPROLOL 5MG TABLET 5 MG PO (08:41)
[2024-08-14] MEDS: POTASSIUM CHLORIDE 10MEQ CAPSULE.ER 10 MEQ PO (08:41)
[2024-08-14] MEDS: OSELTAMIVIR PHOSPHATE 6MG/ML ORAL SUSP 60ML 30 MG PO (08:42)
--- NOTE | 2024-08-15 10:25 | SW/DCPLANNER ---
Spoke with patients on the phone. Patients stated that he isnt doing well. Patients stated that they are aware of his upcoming appointments. Patients stated that they were able to get [facility]. Patients stated that they have no concerns or questions at this time. Tamara Poe
--- NOTE | 2024-08-22 15:04 | EXP.DC.SUM ---
General Admission date:: 08/11/24 Discharge date: 08/14/24 HPI HPI HPI: Patient is a 74-year-old presenting to the ER today with severe respiratory distress and hypoxic respiratory failure. Wears 2 L nasal cannula at home. COPD, followed by Dr. Craey, [facility], and Dr. Haines, pulmonary. Was found to be in respiratory distress by his who called EMS today. He was satting 66% on his 2 L. He was placed on a nonrebreather with improvement in his oxygen saturation. He was given Solu-Medrol and DuoNebs and route. He was dyspneic and unable to speak in more than 1 word sentences and is in respiratory distress. In the ER he tested positive for Influenza A. CXR did not show focal infiltration or consolidation. He has known coronary disease and LV dysfunction. He is followed by [facility]. With treatment in ER and after being placed on BiPap his Sats improved. He is admitted to Stepdown. He received antibiotics in ER. WBC was not elevated. He pH was 7.34 on VBG. Hospital Course Hospital Course Hospital Course: The patient was admitted and started on antibiotics and Tamiflu 75 mg twice a day. He did begin feeling better. His oxygen improved. Prednisone 40 was added daily. DuoNebs were scheduled. By 08/14/2024 he was feeling better and breathing was back to baseline. He was anxious to go home. He was stable for discharge. Exam Data for Last 24 hours Vital signs and Labs for Last 24 Hours: Temp Pulse Resp BP Pulse Ox O2 Del Method O2 Flow Rate 98.7 F 90 18 145/76 H 2 L Nasal Cannula 2 08/14/24 03:48 08/14/24 09:39 08/14/24 07:55 08/14/24 07:55 08/14/24 07:55 08/14/24 11:00 08/14/24 06:21 FiO2 40 08/11/24 14:45 Narrative: Constitutional Constitutional: mild distress (states he is much better since admission.) *Routine HEENT Exam Head: Present normocephalic Eye: Present PERRL ENT: Present mucous membranes moist *Routine Neck Exam Neck: Present full ROM; Absent JVD Routine Chest/Breast/Axilla Exam Chest wall: Absent tenderness *Routine Respiratory Exam Respiratory: Present decreased breath sounds, rales (Bibasilar fibrotic rales) and able to speak in complete sentences; Absent stridor (Nasal O2 at [address]) *Routine Cardiovascular Exam Cardiovascular: Present other (Regular rhythm with ectopics) *Routine Abdominal Exam Abdominal: Present soft; Absent tenderness *Routine Rectal Exam Rectal:: deferred *Routine Genitalia Exam Genitalia:: deferred *Routine Extremities Exam Extremities: Present edema (Minimal. Low weight noted) Routine Back/Spine/Pelvis Exam Back/Spine: Present kyphosis *Routine Skin Exam Skin: Present intact *Routine Neurological Exam Neurological: Present alert and oriented X3 Routine Psychiatric Exam Psychiatric: Present normal affect and normal thought process DS: Diagnosis Discharge Diagnosis (1) Influenza A: Status: Acute Code(s): J10.1 - Influenza due to other identified influenza virus with other respiratory manifestations (2) Acute hypoxemic respiratory failure: Status: Resolved Code(s): J96.01 - Acute respiratory failure with hypoxia (3) Acute exacerbation of chronic obstructive pulmonary disease: Status: Acute Code(s): J44.1 - Chronic obstructive pulmonary disease with (acute) exacerbation (4) Dependence on continuous supplemental oxygen: Status: Acute Code(s): Z99.81 - Dependence on supplemental oxygen (5) CAD (coronary artery disease): Status: Acute Code(s): I25.10 - Atherosclerotic heart disease of [place] coronary artery without angina pectoris Qualifiers: Coronary Disease-Associated Artery/Lesion type: [place] artery [place] vs. transplanted heart: [place] heart Associated angina: without angina Qualified Code(s): I25.10 - Atherosclerotic heart disease of [place] coronary artery without angina pectoris (6) PVCs (premature ventricular contractions): Status: Inactive Code(s): I49.3 - Ventricular premature depolarization Meds Home Medications and Allergies Home Medications ?Medication ?Instructions ?Recorded ?Confirmed ?Type potassium chloride 10 mEq 10 meq PO DAILY 10/11/17 08/11/24 History capsule,extended release tamsulosin 0.4 mg capsule 0.4 mg PO DAILY 07/28/22 08/11/24 History aspirin 81 mg chewable tablet 81 mg PO DAILY #30 tabs 06/08/24 08/11/24 Rx (Aspirin Childrens) atorvastatin 40 mg tablet (Lipitor) 40 mg PO HS #30 tabs 06/08/24 08/11/24 Rx clopidogrel 75 mg tablet (Plavix) 75 mg PO DAILY #30 tabs 06/08/24 08/11/24 Rx sacubitril 24 mg-valsartan 26 mg 1 tab PO BID #180 tabs 06/14/24 08/11/24 Rx tablet (Entresto) bumetanide 1 mg tablet 1 mg PO DAILY #30 tabs 07/19/24 08/11/24 Rx empagliflozin 10 mg tablet 10 mg PO DAILY #30 tabs 07/19/24 08/11/24 Rx (Jardiance) albuterol sulfate 90 mcg/actuation 2 puff inhalation Q4HP PRN 08/14/24 Rx aerosol inhaler (Ventolin HFA) Shortness Of Breath #1 g bisoprolol fumarate 5 mg tablet 5 mg PO DAILY #30 tabs 08/14/24 Rx cefdinir 300 mg capsule 300 mg PO BID #14 caps 08/14/24 Rx oseltamivir 6 mg/mL oral 30 mg (5 mL) PO BID #20 mL 08/14/24 Rx suspension (Tamiflu) prednisone 10 mg tablet 10 mg PO DAILY #30 tabs 08/14/24 Rx spironolactone 25 mg tablet 25 mg PO DAILY #30 tabs 08/14/24 Rx New Prescriptions to Start Prescriptions: albuterol sulfate [Ventolin HFA] Adriana Carey bisoprolol fumarate Adriana Carey cefdinir Adriana Carey oseltamivir [Tamiflu] Adriana Carey prednisone Adriana Carey spironolactone Adriana Carey Allergies Allergy/AdvReac Type Severity Reaction Status Date / Time No Known Allergies Allergy Verified 07/19/24 15:04 Discharge Plan Disposition Patient Disposition: Home, Self-Care Condition: Good Discharge Order Discharge Orders: Discharge Order (Routine); Ordered 08/14/24 Ordered By: Adriana Carey Follow up Plan Follow up with: Adriana Carey MD [Primary Care Provider] - 08/23/24 3:00 pm Prescriptions/Medication Reconciliation: New spironolactone 25 mg Tablet 25 mg PO DAILY Qty: 30 2RF bisoprolol fumarate 5 mg Tablet 5 mg PO DAILY Qty: 30 2RF albuterol sulfate [Ventolin HFA] 90 mcg/actuation Hfa Aerosol Inhaler 2 puff inhalation Q4HP PRN (Reason: Shortness Of Breath) Qty: 1 3RF oseltamivir [Tamiflu] 6 mg/mL Suspension For Reconstitution 30 mg PO BID Qty: 20 0RF cefdinir 300 mg capsule 300 mg PO BID Qty: 14 0RF prednisone 10 mg tablet 10 mg PO DAILY Qty: 30 1RF Continued potassium chloride 10 mEq capsule, extended release 10 meq PO DAILY tamsulosin 0.4 mg capsule 0.4 mg PO DAILY bumetanide 1 mg tablet 1 mg PO DAILY Qty: 30 5RF Jardiance 10 mg tablet 10 mg PO DAILY Qty: 30 5RF sacubitril-valsartan [Entresto] 24-26 mg tablet 1 tab PO BID Qty: 180 3RF clopidogrel [Plavix] 75 mg Tablet 75 mg PO DAILY Qty: 30 6RF aspirin [Aspirin Childrens] 81 mg Tablet,Chewable 81 mg PO DAILY Qty: 30 6RF atorvastatin [Lipitor] 40 mg Tablet 40 mg PO HS Qty: 30 3RF Discontinued spironolactone 50 mg tablet 50 mg PO DAILY Qty: 30 5RF bisoprolol fumarate 10 mg tablet 10 mg PO DAILY Problem Reconciliation Problems Reviewed?: Yes Patient Discharge Instructions ACTIVITY: Limited activity DIET: advance to your usual diet Patient Instructions: DI for Chronic Obstructive Pulmonary Disease Print Language: Tunisian Providers Primary Care Provider: Adriana Carey Admit Provider: Adriana Carey Attending Provider: Adriana Carey
== END 2024-08-14 11:00 | disposition home or self-care (01) | DRG 193 ==
LOC: ER 14:46 → ICU 15:54 → 2ND 08-12 10:09
PROVIDERS: Emergency Medicine; Admitting Provider Family Medicine; Emergency Provider Student in an Organized Health Care Education/Training Program; PCP Family Medicine; Visit Provider Family Medicine
DX: J10.1 Influenza due to other identified influenza virus with other respiratory manifestations (principal); A41.9 Sepsis, unspecified organism; J96.01 Acute respiratory failure with hypoxia; J44.1 Chronic obstructive pulmonary disease with (acute) exacerbation; D64.9 Anemia, unspecified; Z99.81 Dependence on supplemental oxygen; Z95.5 Presence of coronary angioplasty implant and graft; I25.10 Atherosclerotic heart disease of native coronary artery without angina pectoris; I49.3 Ventricular premature depolarization; I10 Essential (primary) hypertension; J43.9 Emphysema, unspecified; Z79.899 Other long term (current) drug therapy; Z79.01 Long term (current) use of anticoagulants; Z87.891 Personal history of nicotine dependence
CPT/HCPCS: 36415; 71045; 80053; 81001; 82550; 82803; 83605; 83880; 84484; 85025; 85378; 87040; 87070; 87205; 87636; 93005; 94640; 94660; 94760; 94761; 99291; J0131; J0456; J0696; J3475; J7050; J7120; J7613; J7620

== ENCOUNTER 2024-08-31 14:26 | Outpatient (CLI) | payer MEDICARE, SELFPAY ==
[2024-08-31 15:47] LABS: Basophils % 0.2 % (0.1-2.0); Eosinophils % 0.2 % (0.1-12.0); Hematocrit 39.5 % (42.0-52.0); Hemoglobin 11.9 g/dL (14.1-18.0); Lymphocytes # 0.6 K/mm3 (0.7-4.5); Lymphocytes % 8.9 % (10-50); Mean Corpuscular HGB Conc 30.1 g/dL (31.8-35.4); Mean Corpuscular Hemoglobin 25.8 pg (27.0-31.2); Mean Corpuscular Volume 85.7 fl (80-94); Mean Platelet Volume 10.3 fl (7.4-10.4); Monocytes # 0.4 K/mm3 (0.1-1.0); Monocytes % 7.2 % (1.7-9.3); Neutrophils # 5.1 K/mm3 (1.8-7.8); Neutrophils % 83.2 % (37.0-80.0); Nucleated Red Blood Cells # 0 10^3/uL; Nucleated Red Blood Cells % 0 %; Platelet Count 288 K/mm3 (142-424); Red Blood Count 4.61 M/mm3 (4.60-6.20); Red Cell Distribution Width 15.9 % (11.5-17.5); Red Cell Distribution Width-SD 49.9 fL; White Blood Count 6.2 K/mm3 (4.8-10.8)
[2024-08-31 16:23] LABS: Albumin Level 3.7 g/dl (3.5-5.0); Chloride 100 mmol/L (98-107); Sodium 138 mmol/L (136-145)
[2024-08-31 16:26] LABS: Alanine Aminotransferase 19 U/L (12-78); Alkaline Phosphatase 70 U/L (38-126); Aspartate Amino Transferase 21 U/L (17-59); Bilirubin,Direct 0.1 mg/dl (0.0-0.4); Bilirubin,Indirect 0.4 mg/dL (0.0-0.9); Bilirubin,Total 0.5 mg/dl (0.2-1.3); Bilirubin,Unconjugated 0.4 mg/dL (0.0-1.1); Blood Urea Nitrogen 25 mg/dl (9-20); Calcium 8.7 mg/dl (8.4-10.2); Carbon Dioxide 32 mmol/L (22.0-30.0); Cholesterol 138 mg/dl (140-200); Estimated Glomerular Filt Rate 49 ml/min (>60); GFR (African American) 60 ML/MIN (>60); Glucose 167 mg/dl (74-100); Total Protein,Serum 6.5 g/dl (6.3-8.2); Triglycerides 69 mg/dl (30-150); VLDL Cholesterol 14 mg/dL (0-40)
[2024-08-31 16:27] LABS: Chol/HDL Ratio 1.4 (1-3.5); HDL Cholesterol 101 mg/dl (40-60)
[2024-08-31 16:41] LABS: Direct LDL Cholesterol < 30.00 mg/dL (100-129)
[2024-08-31 17:00] LABS: Thyroid Stimulating Hormone 1.17 uIU/mL (0.465-4.68)
== END 2024-08-31 23:59 | disposition home or self-care (01) ==
LOC: LAB 14:28
PROVIDERS: PCP Family Medicine; Visit Provider Nurse Practitioner Family
DX: E78.2 Mixed hyperlipidemia (principal); I25.10 Atherosclerotic heart disease of native coronary artery without angina pectoris; I10 Essential (primary) hypertension
CPT/HCPCS: 36415; 80048; 80061; 80076; 84439; 84443; 85025

== ENCOUNTER 2025-02-18 07:17 | Outpatient (CLI) | payer MEDICARE, SELFPAY ==
--- OUTSIDE RECORDS SUMMARY | 2024-09-06 09:30 | XMS_ITS ---
Author Organization [facility] [address] [facility] [address] [place] [id number] Care Team Providers Care Sheep Clipper Name Role Phone Jose Carye Primary Care Provider Allergies No Known Allergies REASON FOR VISIT 2 weeks Medications Medication SIG (Take, Route, Frequency, Duration) Notes Start Date End Date Status Albuterol Sulfate HFA 108 (90 Base) MCG/ACT INHALE 2 PUFFS EVERY 6 HOURS; Duration: 75 Active Tamsulosin HCl 0.4 MG TAKE 1 CAPSULE ASHLEY ; Duration: 90 Active Potassium Chloride ER 10 MEQ 2 capsules with food Orally Once a day; Duration: 30 day(s) Active Trelegy Ellipta 100-62.5-25 MCG/ACT 1 puff Inhalation Once a day Active Viagra 50 MG 1 tab(s) orally once a day prn 12/30/2014 Active B-12 1000 MCG 1 tab(s) orally once a day; Duration: 30 day(s) 05/03/2019 Active Vitamin D3 50 MCG (2000 UT) 1 tab(s) ora lly once a day; Duration: 30 day(s) 05/03/2019 Active Ventolin HFA 108 (90 Base) MCG/ACT 2 puff(s) inhaled every 6 hours; Duration: 30 day(s) Active OXYGEN 2 LITERS DIRECTED 05/28/2013 A ctive Jardiance 10 MG 1 tablet Orally Once a day; Duration: 30 day(s) Active Clopidogrel Bisulfate 75 MG 1 tablet Ora lly Once a day; Duration: 30 day(s) Active Atorvastatin Calcium 40 MG 1 tablet Oral ly Once a day; Duration: 30 day(s) Active Spironolactone 25 MG 1 tablet Orally Onc e a day Active Entresto 24-26 MG 1 tablet Orally Twic e a day; Duration: 30 day(s) Active Bumetanide 1 MG 1 tablet Orally once daily; Duration: 30 days Active Ipratropium-Albuterol 0.5-2.5 (3) MG/3ML 3 ml Inhalation every 6 hrs, prn Active Bisoprolol Fumarate 5 MG 1 tablet Orally Once a day Active Aspirin 81 81 MG 1 tablet Orally Once a day Active predniSONE 10 MG 1 tablet with food o r milk Orally every other day Active Vital Signs Weight 131.6 lbs 09/06/2024 Blood pressure systolic 100 mm Hg 09/07/19 25 Blood pressure diastolic 56 mm Hg 025 Heart Rate 79 /min 09/06/2024 Height 68.50 in 09/06/2024 BMI 19.72 kg/m2 09/06/2024 Encounters Encounter Location Date Provider Diagnosis [facility] [address] [facility] [address] [facility] [address] [place] [id number] 09/06/2024 Jose Carey HFrEF (heart failure with reduced ejection fraction) I50.20 ; Centrilobular emphysema J43.2 ; Essential hypertension I10 and Body mass index (BMI) of 19.0 to 19.9 in adult Z68.1 Assessments Encounter Date Diagnosis (ICD Code) Assessment Notes Treatment Notes Treatment Clinical Notes Section Notes 09/06/2024 HFrEF (heart failure with reduced ejection fraction) (ICD-10 - I50.20) 09/06/2024 Centrilobular emphysema (ICD-10 - J43.2) 09/06/2024 Essential hypertension (ICD-10 - I10) 09/06/2024 Body mass index (BMI) of 19.0 to 19.9 in adult (ICD-10 - Z68.1) Plan Of Treatment Medication Medication Name Sig Start Date Stop Date Notes Bumetanide 1 MG 1 tablet Orally once daily; Duration: 30 days predniSONE 10 MG 1 tablet with food o r milk Orally every other day Next Appt Details Follow Up: 3 Weeks, Reason: Provider Name:Jose Horvath er, 05/13/2025 10:45:00 AM, [address] [facility] [address] [facility], [address], [place], [id number], Progress Notes * ESTER SANTIAGO DDOB: [birth year] (74 yo M)Acc No.[id number]:09/06/2024 Progress Notes Patient: ESTER SHANKS Provider: Jose Carye M.D. :1950 A ge:74 Y S ex:Male Date:09/06/2024 Address:[place], [id number] Subjective: * Chief Complaints: * 1 . 2 weeks. * HPI: E NT/respiratory: The pt is here for a follow up on COPD exacerbation. Pt states he is using the oxygen most of the time. Pt states he is using his rescue inhaler about every 3- 4 hours . Increase in Bumetanide has reculted in decrease in weight. GFR has decreased to 49 from 73. 74 year old male presents with c/o cough. c/o Short of Breath. Denies : sore throat. D enies : Fever. D enies : Chest Pain. * ROS: D ERMATOLOGY: no R regla. n o H gareth. G ASTROENTEROLOGY: no N ausea. n o V omiting. n o D iarrhea.? U ROLOGY: no D ifficulty urinating. n o B lood in urine. * Medical History: H BP, COPD, COVID Vaccine J&J August 2020, COVID Booster with Moderna 05/11/2021, 02/04/22 CT chest. * Surgical History: n one . * Hospitalization/Major Diagno stic Procedure: H [facility]-SO[facility] 04/02. * Family History: F ather: , hypertension. M other: , hypertension. S iblings: one brother with stroke in 50. 5 brother(s) , 3 sister(s) . 2 son(s) , 1 daughter(s) - healthy. . Strong FHX HBP. Daughter . * Social History: C URRENT TOBACCO USE S moking Status: Patient does NOT smoke. C affeine: yes, frequency:. Exercise: yes. Home smoke detector use: yes. Marital Status: . 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 Past smoking status: no, PPD:1.5 , years: since age 15 yrs. old ,determination:. Recreational drug use: no. Alcohol: no, no alcohol for 1 year. * Medications: T aking Bumetanide 1 MG Tablet 1 tablet Orally Two times a day , Taking Ipratropium-Albuterol 0.5-2.5 (3) MG/3ML Solution 3 ml Inhalation every 6 hrs, prn , Taking Bisoprolol Fumarate 5 MG Tablet 1 tablet Orally Once a day , Taking Aspirin 81 81 MG Tablet Chewable 1 tablet Orally Once a day , Taking predniSONE 10 MG Tablet 1 tablet with food or milk Orally Once a day , Taking Entresto 24-26 MG Tablet 1 tablet Orally Twice a day , Taking Clopidogrel Bisulfate 75 MG Tablet 1 tablet Orally Once a day , Taking Atorvastatin Calcium 40 MG Tablet 1 tablet Orally Once a day , Taking Spironolactone 25 MG Tablet 1 tablet Orally Once a day , Taking Jardiance 10 MG Tablet 1 tablet Orally Once a day , Taking Viagra 50 MG Tablet 1 tab(s) orally once a day prn , Taking B-12 1000 MCG Tablet 1 tab(s) orally once a day , Taking Vitamin D3 50 MCG (2000 UT) Tablet 1 tab(s) orally once a day , Taking Ventolin HFA 108 (90 Base) MCG/ACT Aerosol Solution 2 puff(s) inhaled every 6 hours , Taking OXYGEN 2 LITERS DIRECTED , Taking Trelegy Ellipta 100-62.5-25 MCG/ACT Aerosol Powder Breath Activated 1 puff Inhalation Once a day , Taking Albuterol Sulfate HFA 108 (90 Base) MCG/ACT Aerosol Solution INHALE 2 PUFFS EVERY 6 HOURS , Taking Tamsulosin HCl 0.4 MG Capsule TAKE 1 CAPSULE EVERY DAY , Taking Potassium Chloride ER 10 MEQ Capsule Extended Release 2 capsules with food Orally Once a day , Discontinued Cefdinir 300 MG Capsule as directed Orally , Medication List reviewed and reconciled with the patient * Allergies: N .K.D.A. Objective: * Vitals: W t:131.6, Temp:98.2, BP:100/56, HR:79, O2 Sat:96% on 2LPM, Nurse:SORAYA, Ht: 68.50, BMI:19.72. * Examination: G eneral Examination: General Appearance: N AD, note decrease in weight. H EENT: u nremarkable. O ral cavity: n o lesions, mucosa moist and WNL, no erythema. N jessa: s upple, no lymphadenopathy. C hest: n ormal shape and expansion. H eart: R SR, occasional e ctopic. L ungs: d ecreased breath sounds, some rales. A bdomen:? soft and nontender, no organomegaly or masses. N eurologic Exam: I ntact, gait normal.?Skin: normal, no rash. P eripheral pulses: n ormal . B ack: mild dorsal kyphosis. E xtremities: n o leg edema. G enitalia: n ot examined today. ? Assessment: * Assessment: 1. H FrEF (heart failure with reduced ejection fraction) - I50.20 (Primary) 2 .?Centrilobular emphysema - J43.2 3 . E ssential hypertension - I10 ? 4 . B tong mass index (BMI) of 19.0 to 19.9 in adult - Z68.1 Plan: * Treatment: * Procedure Codes: G 2211 Complex e/m visit add on, 3074F SYST BP LT 130 MM HG, 3078F DIAST BP < 80 MM HG * Follow Up: 3 Weeks * Images: Billing Information: * Visit Code: 41119 Office Visit, Est Pt., Level 3. * Procedure Codes: G2211 Complex e/m visit add on. 3074F SYST BP LT 130 MM HG. 3078F DIAST BP < 80 MM HG. * Electronic signature of Jose Carey MD on 02/18/2025 at 07:19 AM EDT Sign off status: Pending * Provider: Jose Carey M.D. Date: 0 09/06/2024 Generated for Maria G gupta/Jose M/eTransmitting on: 0 02/18/2025 07:19 AM EDT History and Physical Notes * HPI (History of Present Illness) Category Sub-Category Detail Notes Category Not es ENT/respiratory sore throat Short of Breath Chest Pain cough Fever Examination Category Sub-Category Detail Notes Category Not es General Examination HEENT: unremarkable Heart: RSR, occasional ecto pic Lungs: decreased breath corey nds, some rales Abdomen: soft and nontender, no organomegaly or masses Extremities: no leg edema General Appearance: NAD, note decrease i n weight Skin: normal, no rash Neurologic Exam: Intact, gait normal Neck: supple, no lymphaden opathy Oral cavity: no lesions, mucosa m oist and WNL, no erythema Peripheral pulses: normal Back: mild dorsal kyphosis Genitalia: not examined today Chest: normal shape and exp ansion
--- OUTSIDE RECORDS SUMMARY | 2024-09-28 06:45 | XMS_ITS ---
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 , [address], [place] [address] Shaun Sanchez MD, Lead Game Designer CLIA: [id number] Sodium 144 135-145 mmol/L Potassium 4.5 3.5-5.3 mmol/L Chloride 105 97-108 mmol/L CO2 27 22-32 mmol/L Glucose 91 65-99 mg/dL BUN 25 8-23 mg/dL Creatinine 1.34 0.70-1.30 mg/dL Calcium 9.2 8.6-10.4 mg/dL eGFR by Creatinine 55 >59 mL/min/1.73m2 Protein 5.8 6.0-8.3 g/dL Albumin 3.8 3.5-5.3 g/dL Alkaline Phosphatase 64 40-129 IU/L ALT (SGPT) 14 <5-55 IU/L AST (SGOT) 11 <5-46 IU/L Bilirubin, Total <0.2 <0.2-1.2 mg/dL A/G Ratio 1.9 1.1-2.5 REASON FOR VISIT 2 month f/u Medications Medication SIG (Take, Route, Frequency, Duration) Notes Start Date End Date Status Tamsulosin HCl 0.4 MG TAKE 1 CAPSULE ; Duration: 90 Active Potassium Chloride ER 10 MEQ 2 capsules with food Orally Once a day; Duration: 30 day(s) Active Albuterol Sulfate HFA 108 (90 Base) MCG/ACT INHALE 2 PUFFS EVERY 6 HOURS; Duration: 75 Active Bumetanide 1 MG 1 tablet Orally once daily; Duration: 30 days Active predniSONE 10 MG 1 tablet with food o r milk Orally every other day Active Trelegy Ellipta 100-62.5-25 MCG/ACT 1 puff Inhalation Once a day Active Ventolin HFA 108 (90 Base) MCG/ACT 2 puff(s) inhaled every 6 hours; Duration: 30 day(s) Active OXYGEN 2 LITERS DIRECTED 05/28/2013 A ctive Vitamin D3 50 MCG (2000 UT) 1 tab(s) ora lly once a day; Duration: 30 day(s) 05/03/2019 Active B-12 1000 MCG 1 tab(s) orally once a day; Duration: 30 day(s) 05/03/2019 Active Clopidogrel Bisulfate 75 MG 1 tablet Ora lly Once a day; Duration: 30 day(s) Active Atorvastatin Calcium 40 MG 1 tablet Oral ly Once a day; Duration: 30 day(s) Active Viagra 50 MG 1 tab(s) orally once a day prn 12/30/2014 Active Spironolactone 25 MG 1 tablet Orally Onc e a day Active Jardiance 10 MG 1 tablet Orally Once a day; Duration: 30 day(s) Active Aspirin 81 81 MG 1 tablet Orally Once a day Active Entresto 24-26 MG 1 tablet Orally Twic e a day; Duration: 30 day(s) Active Bisoprolol Fumarate 5 MG 1 tablet Orally Once a day Active Ipratropium-Albuterol 0.5-2.5 (3) MG/3ML 3 ml Inhalation every 6 hrs, prn Active Vital Signs Weight 137.0 lbs 09/28/2024 Blood pressure systolic 120 mm Hg 09/29/19 25 Blood pressure diastolic 88 mm Hg 025 Heart Rate 65 /min 09/28/2024 Height 68.50 in 09/28/2024 BMI 20.53 kg/m2 09/28/2024 Encounters Encounter Location Date Provider Diagnosis [facility] [address] [facility] [address] [place] [id number] 09/28/2024 Jose Carey Centrilobular emphys beverly J43.2 ; Essential hypertension I10 ; Hypokalemia E87.6 ; Hyperglycemia R73.9 and BMI 20.0-20.9, adult Z68.20 Assessments Encounter Date Diagnosis (ICD Code) Assessment Notes Treatment Notes Treatment Clinical Notes Section Notes 09/28/2024 Centrilobular emphysema (ICD-10 - J43.2) 09/28/2024 Essential hypertension (ICD-10 - I10) 09/28/2024 Hypokalemia (ICD-10 - E87.6) 09/28/2024 Hyperglycemia (ICD-10 - R73.9) 09/28/2024 BMI 20.0-20.9, adult (ICD-10 - Z68.20) Plan Of Treatment Next Appt Details Follow Up: 2 Months, Reason: Provider Name:Jose Horvath er, 05/13/2025 10:45:00 AM, [address] [facility], [address], [place], [id number], Progress Notes * JACK ESTER DDOB: [birth year] (74 yo M)Acc No.[id number]:09/28/2024 Patient: ESTER SHANKS Provider: Jose Carey M.D. :1950 A ge:74 Y S ex:Male Date:09/28/2024 Address:[id number] Subjective: * Chief Complaints: * 1 . 2 month f/u. * HPI: C ardiology: The patient is here for a check up on Hypertension and COPD. Pt states he is doing about the same. Pt states he is using his oxygen at 2 LPM as needed, but wearing more frequently. Pt's Or sat is 99 % on 2 LPM. Pt walked for 2 minutes and O2 dropped to 94 % on RA. After resting for 4-5 minutes on room air his O2 dropped to 83 % on RA. Has Pulmonary appt in November. Potassium level was 3.4 in July and dose was increased. Needs recheck. 74 year old male presents with c/o Short of Breath. Denies : Chest Pain. D enies : Dizziness. D enies : Palpitations. M justice Reproductive: Saw Dr. Graves at the end of August for PSA. Previous biopsy was negative for malignancy. Apparently the level had decreased at this last visit. * ROS: D ERMATOLOGY: no R regla. [...] for 1 year. * Medications: T aking Ipratropium-Albuterol 0.5-2.5 (3) MG/3ML Solution 3 ml Inhalation every 6 hrs, prn , Taking Bisoprolol Fumarate 5 MG Tablet 1 tablet Orally Once a day , Taking Aspirin 81 81 MG Tablet Chewable 1 tablet Orally Once a day , Taking Entresto [...] with food Orally Once a day , Taking Bumetanide 1 MG Tablet 1 tablet Orally once daily , Taking predniSONE 10 MG Tablet 1 tablet with food or milk Orally every other day , Medication List reviewed and reconciled with the patient * Allergies: N .K.D.A. Objective: * Vitals: W t: 137.0, Temp: 98.2, BP: 120/88, HR: 65, O2 Sat: 99% on 2LPM, Nurse: SORAYA, Ht: 68.50, BMI:20.53. * Examination: G eneral Examination: General Appearance: [...] examined today. ? Assessment: * Assessment: 1. E ssential hypertension - I10 2 . C entrilobular emphysema - J43.2 ? 3 . H ypokalemia - E87.6 4 . H yperglycemia - R73.9 ?5. B FL 20.0-20.9, adult - Z68.20 Plan: * Treatment: Value Reference Range A /G Ratio 1.9 1.1-2.5 - * A lbumin 3.8 3.5-5.3 - g/dL * A lkaline Phosphatase 64 40-129 - IU/L * A LT (SGPT) 14 <5-55 - IU/L * A ST (SGOT) 11 <5-46 - IU/L * B ilirubin, Total <0.2 <0.2-1.2 - mg/dL * B UN 25 H 8-23 - mg/dL * C alcium 9.2 8.6-10.4 - mg/dL * C hloride 105 97-108 - mmol/L * C O2 27 22-32 - mmol/L * C reatinine 1.34 H 0.70-1.30 - mg/dL * G lucose 91 65-99 - mg/dL * P otassium 4.5 3.5-5.3 - mmol/L * S odium 144 135-145 - mmol/L * P rotein 5.8 L 6.0-8.3 - g/dL * e GFR by Creatinine 55 L >59 - mL/min/1.73m2 * Cherrie Aguillon 11/16/2024 12:3 5:10 PM EDT > See phone encounter 2.?Hyperglycemia?LAB: Glycohemoglobin A1c (in house) (Collection Date & Time - 09/28/2024)? 6.3* Value Reference Range g lycohemoglobin 6.3% 5 - 6.5 % * Filomena Guido 09/28/2024 12: 19:25 PM > Provider reviewed results while patient in office. * Procedure Codes: G 2211 Complex e/[place], [address] GLYCATED HEMOGLOBIN TEST, Modifiers: QW , 3044F HG A1C LEVEL LT 7.0%, 3074F SYST BP LT 130 MM HG, 3079F DIAST BP 80-89 MM HG * Follow Up: 2 Months * Images: Billing Information: * Visit Code: 31340 Office Visit, Est Pt., Level 3. * Procedure Codes: G2211 Complex e/[place]. [address] GLYCATED HEMOGLOBIN TEST. Modifiers: QW 3044F HG A1C LEVEL LT 7.0%. 3074F SYST BP LT 130 MM HG. 3079F DIAST BP 80-89 MM HG. * Electronic signature of Jose Carey MD on 02/18/2025 at 07:19 AM EDT Sign off status: Pending * Provider: Jose Carey M.D. Date: 0 09/28/2024 Generated for Printi ng/Faxing/eTransmitting on: 0 02/18/2025 07:19 AM EDT History and Physical Notes * HPI (History of Present Illness) Category Sub-Category Detail Notes Category Not es Cardiology Short of Breath Chest Pain Palpitations Dizziness Male Reproductive Saw Dr. Joshua elizondo at the end of August for PSA. Previous biopsy was negative for malignancy. Apparently the level had decreased at this last visit. Examination Category Sub-Category Detail Notes Category Not [...]
--- OUTSIDE RECORDS SUMMARY | 2024-11-09 07:00 | XMS_ITS ---
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 Name Role Phone Jose Carey Primary Care Provider [phone] Allergies No Known Allergies REASON FOR VISIT 6 week f/u Medications Medication SIG (Take, Route, Frequency, Duration) Notes Start Date End Date Status predniSONE 10 mg TAKE ONE TABLET BY M OUTH EVERY OTHER DAY - TAKE WITH FOOD-; Duration: 30 days Active Bumetanide 1 MG 1 tablet Orally once daily; Duration: 30 days Active Nebulizer - as directed; Duratio n: 99 days J44.1 10/25/2024 Active Potassium Chloride ER 10 MEQ 2 capsules with food Orally Once a day; Duration: 30 days Active Tamsulosin HCl 0.4 MG TAKE 1 CAPSULE ; Duration: 90 Active OXYGEN 2 LITERS DIRECTED 05/28/2013 A ctive Ventolin HFA 108 (90 Base) MCG/ACT 2 puff(s) inhaled every 6 hours; Duration: 30 day(s) Active Vitamin D3 50 MCG (2000 UT) 1 tab(s) ora lly once a day; Duration: 30 day(s) 05/03/2019 Active Albuterol Sulfate HFA 108 (90 Base) MCG/ACT INHALE 2 PUFFS EVERY 6 HOURS; Duration: 75 Active Trelegy Ellipta 100-62.5-25 MCG/ACT 1 puff Inhalation Once a day Active Jardiance 10 MG 1 tablet Orally Once a day; Duration: 30 day(s) Active Spironolactone 25 MG 1 tablet Orally Onc e a day Active B-12 1000 MCG 1 tab(s) orally once a day; Duration: 30 day(s) 05/03/2019 Active Viagra 50 MG 1 tab(s) orally once a day prn 12/30/2014 Active Atorvastatin Calcium 40 MG 1 tablet Oral ly Once a day; Duration: 30 day(s) Active Ipratropium-Albuterol 0.5-2.5 (3) MG/3ML 3 ml Inhalation every 6 hrs, prn Active Bisoprolol Fumarate 5 MG 1 tablet Orally Once a day Active Entresto 24-26 MG 1 tablet Orally Twic e a day; Duration: 30 day(s) Active Aspirin 81 81 MG 1 tablet Orally Once a day Active Clopidogrel Bisulfate 75 MG 1 tablet Ora lly Once a day; Duration: 30 day(s) Active Vital Signs Weight 134.2 lbs 11/09/2024 Blood pressure systolic 104 mm Hg 11/10/19 25 Blood pressure diastolic 64 mm Hg 025 Heart Rate 70 /min 11/09/2024 Height 68.50 in 11/09/2024 BMI 20.11 kg/m2 11/09/2024 Encounters Encounter Location Date Provider Diagnosis [facility] [address] [facility] [address] [place] [id number] 11/09/2024 Jose Carey Adult bronchiectasis J47.9 ; HFrEF (heart failure with reduced ejection fraction) I50.20 ; Centrilobular emphysema J43.2 and BMI 20.0-20.9, adult Z68.20 Assessments Encounter Date Diagnosis (ICD Code) Assessment Notes Treatment Notes Treatment Clinical Notes Section Notes 11/09/2024 Adult bronchiectasis (ICD-10 - J47.9) continue current therapy 11/09/2024 HFrEF (heart failure with reduced ejection fraction) (ICD-10 - I50.20) 11/09/2024 Centrilobular emphysema (ICD-10 - J43.2) 11/09/2024 BMI 20.0-20.9, adult (ICD-10 - Z68.20) Plan Of Treatment Treatment Notes Assessment Notes Adult bronchiectasis continue current Next Appt Details Follow Up: 3 Months, Reason: Provider Name:Jose Horvath er, 05/13/2025 10:45:00 AM, [address] [facility], [address], [place], [phone], Progress Notes * ESTER SANTIAGO DDOB: [birth year] (74 yo M)Acc No.[id number]:11/09/2024 Progress Notes Patient: ESTER SHANKS Provider: Jose Carey M.D. :1950 A ge:74 Y S ex:Male Date:11/09/2024 Address:[place], [id number] Subjective: * Chief Complaints: * 1 . 6 week f/u. * HPI: E NT/respiratory: The pt is here for a check up on COPD. See note from Dr. Haines from September. Use of the Flutter valve and incentive spirometry was emphasized and the patient has complied with good results! He is in office toiday without supplemental O2 and O2 Sat is 96%!! 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 Pt states he is using oxygen at home. Pt states he has had some pressure in the right side of his chest. Pulmonary follow-up in January and cardiology appt in early November. 74 year old male presents with c/o Short of Breath w orse with exertion. Denies : cough. D enies : Fever. D enies : Chest Pain.? * ROS: D ERMATOLOGY: no R regla. [...] use: yes. Marital Status: . Occupation: makes [employer]. Past smoking status: no, PPD:1.5 , years: [...] Orally once daily , Taking predniSONE 10 mg Tablet TAKE ONE TABLET BY MOUTH EVERY OTHER DAY - TAKE WITH FOOD- , Taking Nebulizer - Miscellaneous as directed , Notes to Pharmacist: J44.1 * Allergies: N .K.D.A. Objective: * Vitals: W t: 134.2, Temp: 98.1, BP: 104/64, HR: 70, O2 Sat: 96% on RA, Nurse: SORAYA, Ht: 68.50, BMI:20.11. * Examination: G eneral Examination: General Appearance: N AD, note decrease in weight. H EENT: u nremarkable. O ral cavity: n o lesions, mucosa moist and WNL, no erythema. N jessa: s upple, no lymphadenopathy. C hest: n ormal shape and expansion. H eart: R SR, occasional ectopic. L ungs: d ecreased breath sounds. A bdomen: soft and nontender, no organomegaly or masses. N eurologic Exam: I ntact, gait normal. S kin: normal, no rash. P eripheral pulses: n ormal . B ack: mild dorsal kyphosis. E xtremities: n o leg edema. G enitalia: n ot examined today. Assessment: * Assessment: 1. A dult bronchiectasis - J47.9 (Primary) 2 . H FrEF (heart failure with reduced ejection fraction) - I50.20 3 . C entrilobular emphysema - J43.2 ? 4 . B KS 20.0-20.9, adult - Z68.20 Plan: * Treatment: * Procedure Codes: G 2211 Complex e/[place], [address]F TOBACCO NON-USER, G8420 BMI<30 AND >=22 CALC & DOCU, G8783 BP SCR PRFRM RCMDD DEFIND SCR INTVL, G8752 MOST RECENT SYSTOLIC BP < 140MM HG, G8754 MOST RECENT DIASTOLIC BP < 90MM HG * Follow Up: 3 Months * Images: Billing Information: * Visit Code: 73595 Office Visit, Est Pt., Level 3. * Procedure Codes: G2211 Complex e/m visit [place] on. 1036F TOBACCO NON-USER. G8420 BMI<30 AND >=22 CALC & DOCU. G8783 BP SCR PRFRM RCMDD DEFIND SCR INTVL. G8752 MOST RECENT SYSTOLIC BP < 140MM HG. G8754 MOST RECENT DIASTOLIC BP < 90MM HG. * Electronic signature of Jose Carey MD on 02/18/2025 at 07:20 AM EDT Sign off status: Pending * Provider: Jose Carey M.D. Date: 0 11/09/2024 Generated for Ruthi candy/Jose M/eTransmitting on: 0 02/18/2025 07:20 AM EDT History and Physical Notes * HPI (History of Present Illness) Category Sub-Category Detail Notes Category Not es ENT/respiratory Short of Breath worse with exertion Chest Pain cough Fever Examination Category Sub-Category Detail Notes Category Not es General Examination HEENT: unremarkable Heart: RSR, occasional ecto pic Lungs: decreased breath corey nds Abdomen: soft and nontender, no organomegaly or [...]
--- OUTSIDE RECORDS SUMMARY | 2024-11-16 07:00 | XMS_ITS ---
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 Name Role Phone Jose Carey Primary Care Provider Allergies No Known Allergies REASON FOR VISIT checkup- needs refill of Spironolactone Encounters Encounter Location Date Provider Diagnosis [facility] [address] [place] [id number] 11/16/2024 Jose Carey Plan Of Treatment Next Appt Details Provider Name:Jose Horvath er, 05/13/2025 10:45:00 AM, [address] [facility], [address], [place], [id number], Progress Notes * ESTER SANTIAGO DDOB: [birth year] (74 yo M)Acc No.[id number]:11/16/2024 Progress Notes Patient: ESTER SHANKS Provider: Jose Carey M.D. :1950 A ge:74 Y S ex:Male Date:11/16/2024 Address:[id number] Subjective: * Chief Complaints: * 1 . checkup- needs refill of Spironolactone. * ROS: D ERMATOLOGY: no R regla. [...] no, no alcohol for 1 year. * Allergies: N .K.D.A. Objective: * Vitals: Assessment: Plan: * Treatment: * Images: Billing Information: * Visit Code: * Procedure Codes: * Electronic signature of Jose Carey MD on 02/18/2025 at 07:19 AM EDT Sign off status: Pending * Provider: Jose Carey M.D. Date: 0 11/16/2024 Generated for Maria G gupta/Jose M/Oni on: 0 02/18/2025 07:19 AM EDT
--- OUTSIDE RECORDS SUMMARY | 2025-02-11 06:30 | XMS_ITS ---
Author Organization [facility] [address] [facility] [address] [place] [id number] Care Team Providers Care Territory Account Representative Name Role Phone Jose Carey Primary Care Provider Allergies No Known Allergies REASON FOR VISIT 3 Month Check Up, Needs labs Medications Medication SIG (Take, Route, Frequency, Duration) Notes Start Date End Date Status Trelegy Ellipta 100-62.5-25 MCG/ACT 1 puff Inhalation Once a day; Duration: 90 days Active Bisoprolol Fumarate 10 MG TAKE 1 TABLET EVERY DAY; Duration: 90 Active Nebulizer - as directed; Nirmalao n: 99 days J44.1 10/25/2024 Active Spironolactone 25 MG 1 tablet Orally Onc e a day; Duration: 90 days Active Potassium Chloride ER 10 MEQ 2 capsules with food Orally Once a day; Duration: 30 days Active Tamsulosin HCl 0.4 MG TAKE 1 CAPSULE ASHLEY RY DAY; Duration: 90 Active predniSONE 10 mg TAKE ONE TABLET BY M OUTH EVERY OTHER DAY - TAKE WITH FOOD-; Duration: 30 days Active Albuterol Sulfate HFA 108 (90 Base) MCG/ACT INHALE 2 PUFFS EVERY 6 HOURS; Duration: 75 Active Ventolin HFA 108 (90 Base) MCG/ACT [...] Once a day; Duration: 30 day(s) Active B-12 1000 MCG 1 tab(s) orally once a day; Duration: 30 day(s) 05/03/2019 Active Vitamin D3 50 MCG (2000 UT) 1 tab(s) ora lly once a day; Duration: 30 day(s) 05/03/2019 Active Ipratropium-Albuterol 0.5-2.5 (3) MG/3ML 3 ml Inhalation every 6 hrs, prn Active Aspirin 81 81 MG 1 tablet Orally Once a day Active Entresto 24-26 MG 1 tablet Orally Twic e a day; Duration: 30 day(s) Active Clopidogrel Bisulfate 75 MG 1 tablet Ora lly Once a day; Duration: 30 day(s) Active Bumetanide 1 MG 1 tablet Orally twic e a day; Duration: 30 days Active Vital Signs Weight 137.2 lbs 02/11/2025 Blood pressure systolic 116 mm Hg 02/12/20 25 Blood pressure diastolic 60 mm Hg 025 Heart Rate 43 /min 02/11/2025 Height 68.50 in 02/11/2025 BMI 20.56 kg/m2 02/11/2025 Encounters Encounter Location Date Provider Diagnosis [facility] [address] [facility] 36 [facility] [address] [place] [id number] 02/11/2025 Jose Carey Centrilobular emphys beverly J43.2 ; Adult bronchiectasis J47.9 and HFrEF (heart failure with reduced ejection fraction) I50.20 Assessments Encounter Date Diagnosis (ICD Code) Assessment Notes Treatment Notes Treatment Clinical Notes Section Notes 02/11/2025 Centrilobular emphysema (ICD-10 - J43.2) 02/11/2025 Adult bronchiectasis (ICD-10 - J47.9) 02/11/2025 HFrEF (heart failure with reduced ejection fraction) (ICD-10 - I50.20) continue rx Plan Of Treatment Treatment Notes Assessment Notes HFrEF (heart failure with reduced ejecti on fraction) continue rx Next Appt Details Follow Up: 3 Months, Reason: Provider Name:Jose Horvath er, 05/13/2025 10:45:00 AM, [address] [facility] 36 [facility], [address], [place], [id number], Progress Notes * ESTER SANTIAGO DDOB: [birth year] (74 yo M)Acc No.[id number]:02/11/2025 Progress Notes Patient: ESTER SHANKS Provider: Jose Carey M.D. :1950 A ge:74 Y S ex:Male Date:02/11/2025 Address:[place], [id number] Subjective: * Chief Complaints: * 1 . 3 Month Check Up. 2. Needs labs. * HPI: C ardiology: 74 year old male presents with c/o Blood Pressure Elevated P t is here today for a check up on hypertension and dyslipidemia. Pt sts he is doing well and has no concerns at this time. c/o Dyslipidemia. E NT/respiratory: Stable. Pulmonology follow-up 02/18. Still on Prednisone 10mg every other day. * ROS: D ERMATOLOGY: no R regla. [...] Inhalation every 6 hrs, prn , Taking Aspirin 81 81 MG Tablet [...] Taking OXYGEN 2 LITERS DIRECTED , Taking Albuterol Sulfate HFA 108 (90 Base) MCG/ACT Aerosol Solution INHALE 2 PUFFS EVERY 6 HOURS , Taking Tamsulosin HCl 0.4 MG Capsule TAKE 1 CAPSULE EVERY DAY , Taking predniSONE 10 mg Tablet TAKE ONE TABLET BY MOUTH EVERY OTHER DAY - TAKE WITH FOOD- , Taking Nebulizer - Miscellaneous as directed , Notes to Pharmacist: J44.1, Taking Spironolactone 25 MG Tablet 1 tablet Orally Once a day , Taking Trelegy Ellipta 100-62.5-25 MCG/ACT Aerosol Powder Breath Activated 1 puff Inhalation Once a day , Taking Bisoprolol Fumarate 10 MG Tablet TAKE 1 TABLET EVERY DAY , Taking Potassium Chloride ER 10 MEQ Capsule Extended Release 2 capsules with food Orally Once a day , Taking Bumetanide 1 MG Tablet 1 tablet Orally twice a day , Medication List reviewed and reconciled with the patient * Allergies: N .K.D.A. Objective: * Vitals: W t: 137.2, Temp: 98.4, BP: 116/60, HR: 43, O2 Sat: 100% on RA, Nurse: [facility], Ht: 68.50, BMI:20.56. * Examination: G eneral Examination: General Appearance: [...] ot examined today. Assessment: * Assessment: 1. C entrilobular emphysema - J43.2 (Primary) 2 . A dult bronchiectasis - J47.9 3 . H FrEF (heart failure with reduced ejection fraction) - I50.20 ? Plan: * Treatment: * Follow Up: 3 Months * Images: Billing Information: * Visit Code: 57206 Office Visit, Est Pt., Level 4. * Procedure Codes: * Electronic signature of Jose Carey MD on 02/18/2025 at 07:20 AM EDT Sign off status: Pending * Provider: Jose Carey M.D. Date: 0 02/11/2025 Generated for Maria G gupta/Jose M/eTransmitting on: 0 02/18/2025 07:20 AM EDT History and Physical Notes * HPI (History of Present Illness) Category Sub-Category Detail Notes Category Not es Cardiology Blood Pressure Elevated Pt is he re today for a check up on hypertension and dyslipidemia. Pt sts he is doing well and has no concerns at this time Dyslipidemia Examination Category Sub-Category Detail Notes Category Not [...]
--- OUTSIDE RECORDS SUMMARY | 2025-02-18 07:20 | XMS_ITS | Patient Health Record ---
[facility] Organization [facility] Address [address] [place] [id number] Care Team Providers Care Special Procedure Tech Name Role Phone Jose Carey Primary Care Provider [phone] Allergies No Known Allergies Results Component Value Reference Range Notes Glycohemoglobin A1c (in hous e) Reviewed date:10/01/2024 08:55:29 AM Interpretation:6.3 Performing Lab: Notes/Report: 6.3 glycohemoglobin 6.3% 5 - 6.5 % P-Comprehensive Metabolic Pa alexander (CMP) Reviewed date:11/16/2024 12:35:17 PM Interpretation:bun 25, Cr 1.34, gfr 55, prot 5.8 Performing Lab: Notes/Report: Test performed by [facility] [address] [place] [address] , [address], [place] [address] Shaun Sanchez MD, Movie Critic CLIA: [id number] Sodium 144 135-145 mmol/L Potassium 4.5 3.5-5.3 [...] <0.2 <0.2-1.2 mg/dL A/G Ratio 1.9 1.1-2.5 P-Comprehensive Metabolic Pa alexander (CMP) Reviewed date:02/21/2024 10:09:45 AM Interpretation:co2- 33, gluc 179, bun 24, Cr 1.59, gfr 45 Performing Lab: Notes/Report: Test performed by [facility] [address] [place] [address] , [address], [place] [address] Shaun Sanchez MD, Movie Critic CLIA: [id number] Sodium 138 135-145 mmol/L Potassium 4.6 3.5-5.3 mmol/L Chloride 97 97-108 mmol/L CO2 33 22-32 mmol/L Glucose 179 65-99 mg/dL BUN 24 8-23 mg/dL Creatinine 1.59 0.70-1.30 mg/dL Calcium 9.4 8.6-10.4 mg/dL eGFR by Creatinine 45 >59 mL/min/1.73m2 Protein 6.2 6.0-8.3 g/dL Albumin 4.1 3.5-5.3 g/dL Alkaline Phosphatase 59 40-129 IU/L ALT (SGPT) 14 <5-55 IU/L AST (SGOT) 12 <5-46 IU/L Bilirubin, Total 0.3 <0.2-1.2 mg/dL A/G Ratio 2.0 1.1-2.5 CBC Venipuncture (in house) Reviewed date:02/20/2024 11:28:10 AM Interpretation: Performing Lab: Notes/Report: wbc 6.0 3.5 - 10 lymph 13.2% 15 - 50 mid 4.4% 2 - 15 gran 82.4% 35 - 80 rbc 4.42 3.5 - 5.5 hgb 11.9 11.5 - 16.5 hct 37.5 35 - 55 mcv 94.8 75 - 100 mch 27.0 25 - 35 mchc 31.8 31 - 38 platlet 243 100 - 400 P-Comprehensive Metabolic Pa alexander (CMP) Reviewed date:08/06/2024 02:06:43 PM Interpretation:K+ 3.4, Cr 1.49, gfr 48 Performing Lab: Notes/Report: Test performed by [facility] [address] [place] [address] , [address], [place] [address] Shaun Sanchez MD, Movie Critic CLIA: [id number] Sodium 142 135-145 mmol/L Potassium 3.4 3.5-5.3 mmol/L Chloride 100 97-108 mmol/L CO2 31 22-32 mmol/L Glucose 94 65-99 mg/dL BUN 20 8-23 mg/dL Creatinine 1.49 0.70-1.30 mg/dL Calcium 9.0 8.6-10.4 mg/dL eGFR by Creatinine 48 >59 mL/min/1.73m2 Protein 6.2 6.0-8.3 g/dL Albumin 4.1 3.5-5.3 g/dL Alkaline Phosphatase 88 40-129 IU/L ALT (SGPT) 19 <5-55 IU/L AST (SGOT) 14 <5-46 IU/L Bilirubin, Total 0.7 <0.2-1.2 mg/dL A/G Ratio 2.0 1.1-2.5 P-Basic Metabolic Panel (BMP ) Reviewed date:08/29/2024 04:11:47 PM Interpretation:satisfactory, non-fasting Performing Lab: Notes/Report: Test performed by [facility] [address] , [address], [place] [address] Shaun Sanchez MD, Movie Critic CLIA: [id number] Sodium 145 135-145 mmol/L Potassium 4.1 3.5-5.3 mmol/L Chloride 105 97-108 mmol/L CO2 31 22-32 mmol/L Glucose 122 65-99 mg/dL BUN 15 8-23 mg/dL Creatinine 1.24 0.70-1.30 mg/dL Calcium 9.2 8.6-10.4 mg/dL eGFR by Creatinine 60 >59 mL/min/1.73m2 H-Sputum Culture with Gram Emely anaya Reviewed date:08/19/2024 11:57:58 AM Interpretation: Performing Lab: Notes/Report: Comment: Induce w/3ml NS neb tx if necessary GS Gram Stain: GS <10 White Blood Cells/LPF GS <10 Epithelial Cells / LPF GS Moderate Gram Positi ve Diplococci In Pairs GS Few Gram Positive Co cci In Clusters GS Few Budding Yeast CUSPU Normal Respiratory Tami. CUSPU YEAST ISOLATED. PLEA SE CONTACT LAB IF FURTHER YEAST ID IS CUSPU REQUIRED. LAB WILL H OLD FOR 5 DAYS. CBC Fingerstick (in house) Reviewed date:04/13/2024 10:28:32 AM Interpretation: Performing Lab: Notes/Report: wbc 4.7 3.5 - 10 lym 21.5 15 - 50 mid 6.9 2 - 15 gran 71.6 35 - 80 rbc 4.87 3.5 - 5.5 hgb 13.0 11.5 - 16.5 hct 41.6 35 - 55 mcv 85.4 75 - 100 mch 26.7 25 - 35 mchc 31.2 31 - 38 plat 215 100 - 400 Medications Medication SIG (Take, Route, Frequency, Duration) Notes Start Date End Date Status Aspirin 81 81 MG 1 tablet Orally Once a day Active Tamsulosin HCl 0.4 MG TAKE 1 CAPSULE ASHLEY ; Duration: 90 Active Entresto 24-26 MG 1 tablet Orally Twic e a day; Duration: 30 day(s) Active predniSONE 10 mg TAKE ONE TABLET BY M OUTH EVERY OTHER DAY - TAKE WITH FOOD-; Duration: 30 days Active Albuterol Sulfate HFA 108 (90 Base) MCG/ACT 2 puffs as needed Inhalation every 6 hours; Duration: 90 days Active Ipratropium-Albuterol 0.5-2.5 (3) MG/3ML 3 ml Inhalation every 6 hrs, prn Active Jardiance 10 MG 1 tablet Orally Once a day; Duration: 30 day(s) Active Trelegy Ellipta 100-62.5-25 MCG/ACT 1 puff Inhalation Once a day; Duration: 90 days Active Viagra 50 MG 1 tab(s) orally once a day prn 12/30/2014 Active Bisoprolol Fumarate 10 MG TAKE 1 TABLET EVERY DAY; Duration: 90 Active Clopidogrel Bisulfate 75 MG 1 tablet Ora lly Once a day; Duration: 30 day(s) Active Nebulizer - as directed; Duratio n: 99 days J44.1 10/25/2024 Active Atorvastatin Calcium 40 MG 1 tablet Oral ly Once a day; Duration: 30 day(s) Active Spironolactone 25 MG 1 tablet Orally Onc e a day; Duration: 90 days Active Ventolin HFA 108 (90 Base) MCG/ACT 2 puff(s) inhaled every 6 hours; Duration: 30 day(s) Active OXYGEN 2 LITERS DIRECTED 05/28/2013 A ctive B-12 1000 MCG 1 tab(s) orally once a day; Duration: 30 day(s) 05/03/2019 Active Potassium Chloride ER 10 MEQ 2 capsules with food Orally Once a day; Duration: 30 days Active Vitamin D3 50 MCG (2000 UT) 1 tab(s) ora lly once a day; Duration: 30 day(s) 05/03/2019 Active Bumetanide 1 MG 1 tablet Orally twic e a day; Duration: 30 days Active Immunizations Vaccine Route Administration Date Status Comme nts COVID 19 Deonte Unknown 07/30/2020 Administered Fluzone High Dose (65yr and older) Unknown 01/28/2021 Administered Fluzone PF Quad (6-35 months) Unknown 02/08/2017 Administered Fluzone Quad (6months&older) IM Intramuscular 05/09/2020 Administered Fluzone High Dose (65yr and older) Unknown 03/16/2016 Administered Prevnar (PCV13) IM Intramuscular 04/30/2014 Administered COVID 19 Moderna Unknown 05/11/2021 Administered Tetanus Tdap-Adacel (over 7yrs) IM Intramuscular 07/05/2016 Administered PNEUMOVAX 23 VACCINE IM Intramuscular 07/05/2016 Administe red Problems Problem Type SNOMED Code ICD Code Onset Dates Problem Status W/U Status Risk Notes Problem Restless legs syndrome (13372719) Restless leg syndrome (333.99) Active confirmed Problem Vitamin D deficiency (22336561) Vitamin D deficiency (E55.9) Active confirmed Problem Vitamin B12 deficiency (363517947) Vitamin B12 deficiency (E53.8) Active confirmed Problem Essential hypertension (90006657) Essential hypertension (I10) Active confirmed Problem Acute exacerbation of chronic obstructive airways disease (517625196) COPD with exacerbation (J44.1) Active confirmed Problem Arthropathy of lumbar facet joint (850880401) Lumbar facet arthropathy (M47.816) Active confirmed Problem Acute exacerbation of chronic obstructive airways disease (654561410) COPD exacerbation (J44.1) Active confirmed Problem Sciatica (10397336) Sciatica of left side (M54.32) Active confirmed Problem Centrilobular emphysema (84582716) Centrilobular emphysema (J43.2) Active confirmed Problem Chronic obstructive pulmonary disease (89571107) Chronic obstructive pulmonary disease, unspecified (J44.9) Active confirmed Problem Nicotine dependence (23898964) Personal history of nicotine dependence (Z87.891) Active confirmed Problem Right inguinal hernia (765796340) Right inguinal hernia (K40.90) Active confirmed Problem Cervical disc disease (410804411) Cervical disc disease (M50.90) Active confirmed Problem Dyslipidemia (324862014) Dyslipidemia (E78.5) Active confirmed Problem Reactive depression (57013934) 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) Active confirmed Problem Cardiac dysrhythmia (230559895) Cardiac dysrhythmia, unspecified (I49.9) Active confirmed Problem Arthropathy of lumbar facet joint (641292756) Lumbar facet arthropathy (M12.88) Active confirmed Problem Radiology result abnormal (finding) (049764422) Abnormal radiographic examination (R93.8) Active confirmed Problem Lower urinary tract symptoms due to benign prostatic hypertrophy (93175836591591) Benign prostatic hyperplasia with lower urinary tract symptoms (N40.1) Active confirmed Problem Elevated PSA (866249881) Elevated PSA (R97.20) Active confirmed Problem Acute exacerbation of bronchiectasis (352725490) Bronchiectasis with acute exacerbation (J47.1) Active confirmed Problem Acute exacerbation of chronic obstructive airways disease (442988286) Acute exacerbation of chronic obstructive airways disease (J44.1) Active confirmed Problem Imaging result abnormal (708559397) Abnormal findings on diagnostic imaging of other specified body structures (R93.89) Active confirmed Problem Cervical arthritis (135965113) Cervical arthritis (M47.812) Active confirmed Problem Systolic heart failure (415614307) HFrEF (heart failure with reduced ejection fraction) (I50.20) Active confirmed Problem Adult bronchiectasis (86460339) Adult bronchiectasis (J47.9) Active confirmed Vital Signs Heart Rate 43 /min 02/11/2025 Blood pressure diastolic 60 mm Hg 02/11/2025 Height 68.50 in 02/11/2025 Blood pressure systolic 116 mm Hg 02/11/2025 Weight 137.2 lbs 02/11/2025 BMI 20.56 kg/m2 02/11/2025 Encounters Encounter Location Date Provider Diagnosis [facility] [address] [facility] [address] [place] [address], [place] [id number] 02/20/2024 Jose Carey COPD exacerbation J4 4.1 ; Centrilobular emphysema J43.2 and Essential hypertension I10 [facility] [address] [place], [place] [id number] 02/27/2024 Jose Carey COPD exacerbation J4 4.1 ; Bronchiectasis with acute exacerbation J47.1 and Localized edema R60.0 [facility] [address] [place], [place] [id number] 04/12/2024 Jose Carey Adult bronchiectasis J47.9 ; Centrilobular emphysema J43.2 and Essential hypertension I10 [facility] [address] [place], [place] [id number] 06/01/2024 Jose Carey Chronic obstructive pulmonary disease, unspecified J44.9 [facility] [address] [place], [place] [id number] 08/03/2024 Jose Carey Essential hypertensi on I10 [facility] [address] [place], [place] [id number] 08/23/2024 Jose Carey COPD with exacerbati on J44.1 ; Adult bronchiectasis J47.9 ; Centrilobular emphysema J43.2 ; Essential hypertension I10 and HFrEF (heart failure with reduced ejection fraction) I50.20 [facility] [address] [place], [place] [id number] 09/06/2024 Jose Carey HFrEF (heart failure with reduced ejection fraction) I50.20 ; Centrilobular emphysema J43.2 ; Essential hypertension I10 and Body mass index (BMI) of 19.0 to 19.9 in adult Z68.1 [facility] [address] [place], [place] [id number] 09/28/2024 Jose Carey Centrilobular emphys beverly J43.2 ; Essential hypertension I10 ; Hypokalemia E87.6 ; Hyperglycemia R73.9 and BMI 20.0-20.9, adult Z68.20 [facility] [address] [place], [place] [id number] 11/09/2024 Jose Carey Adult bronchiectasis J47.9 ; HFrEF (heart failure with reduced ejection fraction) I50.20 ; Centrilobular emphysema J43.2 and BMI 20.0-20.9, adult Z68.20 [facility] [address] [place], [place] [id number] 02/11/2025 J Chema Carey Centrilobular emphys [place]ver[place] J43.2 ; Adult bronchiectasis J47.9 and HFrEF (heart failure with reduced ejection fraction) I50.20 [facility] [address] [place], [place] [id number] 03/05/2024 J Cehma Carey Centrilobular emphys [place]ver[place] J43.2 ; Adult bronchiectasis J47.9 and Localized edema R60.0 [facility] [address] [place], [place] [id number] 02/21/2024 Jose Carey [facility] [address] [facility] [address] [place], [place] [id number] 03/28/2024 Jose Carey Bronchitis J40 [facility] [address] [facility] [address] [place], [place] [id number] 08/06/2024 Jose Carey [facility] [address] [facility] [address] [place], [place] [id number] 10/25/2024 Jose Carey [facility] [address] [facility] [address] [place], [place] [id number] 11/16/2024 Jose Carey [facility] [address] [facility] [address] [place], [place] [id number] 11/22/2024 Jose Carey Bronchitis J40 Assessments Encounter Date Diagnosis (ICD Code) Assessment Notes Treatment Notes Treatment Clinical Notes Section Notes 02/20/2024 COPD exacerbation (ICD-10 - J44.1) 02/20/2024 Centrilobular emphysema (ICD-10 - J43.2) 02/27/2024 COPD exacerbation (ICD-10 - J44.1) 03/05/2024 Centrilobular emphysema (ICD-10 - J43.2) Take extra furosemide today 03/05/2024 Adult bronchiectasis (ICD-10 - J47.9) 03/28/2024 Bronchitis (ICD-10 - J40) 04/12/2024 Centrilobular emphysema (ICD-10 - J43.2) 04/12/2024 Adult bronchiectasis (ICD-10 - J47.9) 06/01/2024 Chronic obstructive pulmonary disease, unspecified (ICD-10 - J44.9) continue current therapy 02/27/2024 Bronchiectasis with acute exacerbation (ICD-10 - J47.1) 08/23/2024 COPD with exacerbation (ICD-10 - J44.1) 08/23/2024 Adult bronchiectasis (ICD-10 - J47.9) 09/06/2024 Centrilobular emphysema (ICD-10 - J43.2) 09/06/2024 HFrEF (heart failure with reduced ejection fraction) (ICD-10 - I50.20) 09/28/2024 Essential hypertension (ICD-10 - I10) 09/28/2024 Centrilobular emphysema (ICD-10 - J43.2) 11/09/2024 HFrEF (heart failure with reduced ejection fraction) (ICD-10 - I50.20) 11/09/2024 Adult bronchiectasis (ICD-10 - J47.9) continue current therapy 11/22/2024 Bronchitis (ICD-10 - J40) 02/11/2025 Centrilobular emphysema (ICD-10 - J43.2) 08/03/2024 Essential hypertension (ICD-10 - I10) 02/11/2025 Adult bronchiectasis (ICD-10 - J47.9) 11/09/2024 Centrilobular emphysema (ICD-10 - J43.2) 09/28/2024 Hypokalemia (ICD-10 - E87.6) 09/06/2024 Essential hypertension (ICD-10 - I10) 08/23/2024 Centrilobular emphysema (ICD-10 - J43.2) 03/05/2024 Localized edema (ICD-10 - R60.0) 04/12/2024 Essential hypertension (ICD-10 - I10) 02/27/2024 Localized edema (ICD-10 - R60.0) 02/20/2024 Essential hypertension (ICD-10 - I10) 08/23/2024 Essential hypertension (ICD-10 - I10) 09/06/2024 Body mass index (BMI) of 19.0 to 19.9 in adult (ICD-10 - Z68.1) 09/28/2024 Hyperglycemia (ICD-10 - R73.9) 02/11/2025 HFrEF (heart failure with reduced ejection fraction) (ICD-10 - I50.20) continue rx 11/09/2024 BMI 20.0-20.9, adult (ICD-10 - Z68.20) 09/28/2024 BMI 20.0-20.9, adult (ICD-10 - Z68.20) 08/23/2024 HFrEF (heart failure with reduced ejection fraction) (ICD-10 - I50.20) Plan Of Treatment Next Appt Details Provider Name:Jose Horvath , 05/13/2025 10:45:00 AM, [address] [facility], [address], [employer], [place], [id number], Insurance Providers Payer Name Payer Address Payer Phone Subscriber Number Group Number Insured Name Patient Relationship to Insured Coverage Start Date Coverage End Date [employer] (MEDICAR E) [address] [address] [place] [address] [id number] ESTER SANTIAGO Self - patient is the insured Medical (General) History Medical History History ICD Code HBP COPD COVID Vaccine J&J August 2020 COVID Booster with Moderna 05/11/2021 02/04/22 CT chest Surgical History Surgery Date(Month/Year) none Hospitalization History Reason Date(Month/Year) [facility] 04/02
--- OUTSIDE RECORDS SUMMARY | 2025-02-18 07:20 | XMS_ITS | Clinical Summary ---
Author Organization Healthcare Address [address] [place] [address] Care Team Providers Care Ms Sql Developer Name Role Phone Ted Carey MD Primary Care Provider [phone] Immunizations Immunization Administration Dates Next Due Influenza, seasonal, injectable 03/23/2014,05/23,02/20/2013 Pneumococcal Polysaccharide PPV23 03/23/2014 Family History Medical History Relation Name Comments Cardiac disorder Brother Cardiac disorder Father Relation Name Status Comments Brother Father Social History Tobacco Use Types Packs/Day Years Used Date Smoking Tobacco: Former Alcohol Use Standard Drinks/Week Comments Yes 0 (1 standard drink = 0.6 oz pure alcohol) Alcoholic Drinks/day: Social alcohol use Sex and Gender Information Value Date Recorded Sex Assigned at Not on file Legal Sex Male 6:26 PM EDT Gender Identity Not on file Sexual Orientation Not on file Last Filed Vital Signs Vital Sign Reading Time Taken Comments Blood Pressure 164/87 08/29/2018 10:15 AM EDT Pulse 79 08/29/2018 10:15 AM EDT Temperature 36.6 C (97.8 F) 08/29/2018 10:15 AM EDT Respiratory Rate 16 08/29/2018 10:15 AM EDT Oxygen Saturation - - Inhaled Oxygen Concentration - - Weight 74.5 kg (164 lb 3.9 oz) 08/29/2018 10:15 AM EDT Height 172.7 cm (5' 8 ) 08/29/2018 10:15 AM EDT Body Mass Index 24.97 08/29/2018 10:15 AM EDT Plan of Treatment Not on file Care Teams Ms Sql Developer Relationship Specialty Start Date End Date Ted Carey MD [address] [place] [address] PCP - General 10/03/20
--- NOTE | 2025-02-18 07:30 | CT_ITS ---
FINAL REPORT TECHNIQUE: Axial CT images of the chest were obtained without contrast. Low-dose protocol was utilized. This study was performed with techniques to keep radiation doses as low as reasonably achievable (ALARA). Individualized dose reduction techniques using automated exposure control or adjustment of mA and/or kV according to the patient's size were employed. CLINICAL HISTORY: lung cancer screening former smoker, 25 yrs 2 ppd quit 25 years ago COMPARISON: 02/07/2023 & CTA 02/14/2024 FINDINGS: CT CHEST WITHOUT, LOW DOSE SCREENING CT Di Vol: 2.90 mGy DLP: 107.86 mGy*cm No mediastinal mass or adenopathy. Scattered calcified mediastinal and hilar lymph nodes. The heart size is normal. There is no pleural or pericardial effusion. The lung windows show moderate changes of centrilobular emphysema. There is a 5 mm irregular nodule in the inferior right upper lobe on image 31 of series 4 which is entirely stable compared to January 2023 and can be considered benign. There is a new nodule in the left upper lobe measuring 4 mm on image 15 of series 4. Limited images of the upper abdomen demonstrate no acute findings. IMPRESSION: New 4 mm left upper lobe nodule. LR Category 3: 6 month follow-up low-dose chest CT is recommended per Fleischner criteria. Reviewed, Interpreted and Dictated by Magdy Gonzalez MD Transcribed by Katelin Strauss Authenticated and [facility]
== END 2025-02-18 23:59 | disposition home or self-care (01) ==
LOC: RAD 07:17
PROVIDERS: PCP Family Medicine; Visit Provider Internal Medicine Pulmonary Disease
DX: R91.1 Solitary pulmonary nodule (principal); Z12.2 Encounter for screening for malignant neoplasm of respiratory organs; F17.210 Nicotine dependence, cigarettes, uncomplicated
CPT/HCPCS: 71271